=== PATIENT | female | born 1960 | race Caucasian/White ===

== ENCOUNTER 2018-09-24 20:57 | Inpatient (IN) | payer MEDICARE, MEDICAID ==
[~2018-09-24] VITALS: Ht 160 cm; Wt 89.1 kg
[~2018-09-24 20:57] MED LIST: BENA20TA4; CEPH500C; HYDR200T39 PO; LABE200T25; LEVO-86; LEVO50TA64; TRAM50TA2 PO; TRIA1CAP44
[2018-09-25] VITALS (14 sets, daily range): BP systolic 100–168; BP diastolic 65–91; PULSE 60–92; RESP 18–20; Ht 160 cm; Wt 89.1 kg
--- NOTE | 2018-09-25 00:58 | ERD ---
ER Documentation Chief Complaint Chief Complaint SOB, DIZZY. MISSED DIALYSIS TODAY, HX CHF HPI This is a very pleasant 57-year-old female coming with shortness of breath and dizziness today. Patient has a history of end-stage renal disease and CHF and is on Sunday dialysis schedule. She missed her dialysis earlie r today because she could not get to it. She denies any fevers or chills. Denies any ceci chest pain. Denies any nausea or vomiting. Denies any other current issues. ROS All systems reviewed and are negative except as per history of present illness. Medications Home Meds Reported Medications Cephalexin* (Cephalexin*) 500 Mg Capsule 01/24/10 Labetalol Hcl* (Labetalol Hcl*) 200 Mg Tablet 01/24/10 Benazepril Hcl* (Benazepril Hcl*) 20 Mg Tablet 01/24/10 Levothyroxine Sodium (Levothroid) 50 Mcg Tablet 01/24/10 Tramadol HCl (Tramadol HCl) 50 Mg Tablet 01/24/10 Hydroxychloroquine Sulfate* (Hydroxychloroquine Sulfate*) 200 Mg Tablet 01/24/10 Triamterene-HCTZ (Triamterene-HCTZ) 1 Cap Capsule 01/24/10 Levothyroxine Sodium (Levothroid) 100 Mcg Tablet 01/24/10 Allergies Allergies: Coded Allergies: Penicillins (Unverified Allergy, Intermediate, RASH , 01/30/10) Sertraline (Verified Allergy, Mild, 01/30/10) PMhx/Soc History of Surgery: Yes (ANGIOPLASTY) Anesthesia Reaction: No Hx Neurological Disorder: No Hx Respiratory Disorders: Yes (ASTHMA) Hx Cardiac Disorders: Yes (CHF, HTN) Hx Psychiatric Problems: No Hx Alcohol Use: Yes (OCCASIONAL) Hx Substance Use: No Hx Tobacco Use: Yes Smoking Status: Unknown if ever smoked Physical Exam Vitals Vital Signs Date Temp Pulse Resp B/P (MAP) Pulse Ox O2 O2 Flow FiO2 Time Delivery Rate 09/24/18 Nasal 2 23:00 Cannula 09/24/18 97.2 87 22 196/99 100 21:06 (131) Physical Exam Const: No acute distress Head: Atraumatic Eyes: Normal Conjunctiva ENT: Normal External Ears, Nose and Mouth. Neck: Full range of motion. No meningismus. Resp: Scattered rales bilaterally Cardio: Regular rate and rhythm, no murmurs Abd: Soft, non tender, non distended. Normal bowel sounds Skin: No petechiae or rashes Back: No midline or flank tenderness Ext: No cyanosis, or edema Neur: Awake and alert Psych: Normal Mood and Affect Result Diagram: 09/24/18231709/24/182317 Results 24 hrs Laboratory Tests Test 09/24/18 23:18 White Blood Count 5.0 10^3/ul Red Blood Count 3.01 10^6/ul Hemoglobin 9.6 g/dl Hematocrit 29.9 % Mean Corpuscular Volume 99.3 fl Mean Corpuscular Hemoglobin 31.9 pg Mean Corpuscular Hemoglobin Concent 32.1 g/dl Red Cell Distribution Width 15.0 % Platelet Count 212 10^3/UL Mean Platelet Volume 9.9 fl Immature Granulocytes % 0.200 % Neutrophils % 59.7 % Lymphocytes % 27.2 % Monocytes % 8.9 % Eosinophils % 3.2 % Basophils % 0.8 % Nucleated Red Blood Cells % 0.0 /100WBC Immature Granulocytes # 0.010 10^3/ul Neutrophils # 3.0 10^3/ul Lymphocytes # 1.4 10^3/ul Monocytes # 0.4 10^3/ul Eosinophils # 0.2 10^3/ul Basophils # 0.0 10^3/ul Nucleated Red Blood Cells # 0.0 10^3/ul Sodium Level 141 mmol/L Potassium Level 3.3 mmol/L Chloride Level 102 mmol/L Carbon Dioxide Level 26 mmol/L Anion Gap 13 Blood Urea Nitrogen 47 mg/dl Creatinine 2.68 mg/dl Est Glomerular Filtrat Rate mL/min 18 mL/min Glucose Level 84 mg/dl Calcium Level 8.8 mg/dl Total Bilirubin 0.2 mg/dl Direct Bilirubin 0.00 mg/dl Indirect Bilirubin 0.2 mg/dl Aspartate Amino Transf (AST/SGOT) 25 IU/L Alanine Aminotransferase (ALT/SGPT) 10 IU/L Alkaline Phosphatase 140 IU/L Troponin I 0.017 ng/ml B-Type Natriuretic Peptide 5130 PG/ML Total Protein 7.5 g/dl Albumin 4.0 g/dl Globulin 3.50 g/dl Albumin/Globulin Ratio 1.14 Procedures/MDM Emergency department course: Patient seen and the charge nurse. Placed in bed from the evaluation. Had blood work done. Was placed on continuous hospital monitor with continuous pulse oximetry. Had stat EKG. Serial exams remained stable here in the department. Diagnostic data: EKG: Rate/Rhythm: Normal rate, regular rhythm QRS, ST, T-waves: [No changes consistent w/ acute ischemia], normal intervals, upgoing T waves, normal axis Impression: [No evidence of ischemia or arrhythmia] Chest X-ray 1V Interpreted by me: Soft Tissue: No acute abnormalities Bones: No acute abnormalities Mediastinum/Cardiac Silhouette/Lungs: [No acute abnormalities] Medical decision making: Patient's heart failure symptoms is concerning for acute decompensation and will require inpatient workup and monitoring. Further w/u for ischemia, arrhythmia, PE or dissection will be deferred to the inpatient team. Accepting Care Team: Current data and ongoing care discussed. Time: 11:30 PM Primary Provider: Dr. Blackmon Consulting: Deferred to inpatient team Outstanding Data: none Departure Diagnosis: Primary Impression: Shortness of breath Condition: Serious RADHA FRIEDMAN Sep 25, 2018 00:58
[2018-09-25] MEDS ORDERED: ONDANSETRON 4 MG INJ IV PRN (02:30)
[2018-09-25] MEDS ORDERED: ACETAMINOPHEN 325 MG TAB PO PRN (02:30)
[2018-09-25] MEDS ORDERED: morphine 2 MG INJ IV PRN (02:30)
[2018-09-25] MEDS ORDERED: ESCI5TAB PO (02:46)
[2018-09-25] MEDS ORDERED: HYDR-3671 PO (02:46)
[2018-09-25] MEDS ORDERED: AMLO-147 PO (02:46)
[2018-09-25] MEDS ORDERED: ISOS20TA3 PO (02:46)
[2018-09-25] MEDS ORDERED: ALPR1TAB2 PO (02:46)
[2018-09-25] MEDS ORDERED: FURO80TA78 PO (02:46)
[2018-09-25] MEDS ORDERED: SYN2 PO (02:46)
[2018-09-25] MEDS ORDERED: DIVA-48 PO (02:46)
[2018-09-25] MEDS ORDERED: ATOR40TA68 PO (02:48)
[2018-09-25] MEDS: QUETIAPINE 100 MG TAB PO SCH ×2 (03:07→21:22)
--- NOTE | 2018-09-25 11:15 | HP ---
Date/Time of Note Date/Time of Note DATE: 09/25/18 TIME: 10:59 Assessment/Plan VTE Prophylaxis Pharmacological prophylaxis: heparin Lines/Catheters IV [facility] Type [facility]from [facility] Saline Lock Urinary Cath still in place: No Assessment/Plan Assessment/Plan -Fluid volume overload due to missed hemodialysis. Dr. Rojas is asked to see patient in nephrology consultation. -Shortness of breath in patient with history of coronary artery disease and stent placement, will rule out acute coronary syndrome, cardiac enzymes every 8 hours x3 will obtain 2D echo. Dr. Bashir is asked to see patient in cardiology consultation. -Hypertension -Hypothyroidism -Bipolar disorder -History of lupus -Homelessness, group social worker consult. Further recommendations based on clinical course. Plan of care discussed with Dr. Holm. Result Diagram: 09/25/18 0748 09/25/18 0748 Results 24hrs Laboratory Tests Test 09/24/18 23:18 09/25/18 07:46 09/25/18 07:48 White Blood Count 5.0 4.0 L Red Blood Count 3.01 L 2.91 L Hemoglobin 9.6 L 9.1 L Hematocrit 29.9 L 28.3 L Mean Corpuscular Volume 99.3 97.3 Mean Corpuscular Hemoglobin 31.9 31.3 Mean Corpuscular Hemoglobin Concent 32.1 32.2 Red Cell Distribution Width 15.0 H 15.0 H Platelet Count 212 200 Mean Platelet Volume 9.9 10.1 Immature Granulocytes % 0.200 0.200 Neutrophils % 59.7 49.2 Lymphocytes % 27.2 35.4 Monocytes % 8.9 9.7 Eosinophils % 3.2 4.5 Basophils % 0.8 1.0 Nucleated Red Blood Cells % 0.0 0.0 Immature Granulocytes # 0.010 0.010 Neutrophils # 3.0 2.0 Lymphocytes # 1.4 1.4 Monocytes # 0.4 0.4 Eosinophils # 0.2 0.2 Basophils # 0.0 0.0 Nucleated Red Blood Cells # 0.0 0.0 Sodium Level 141 142 Potassium Level 3.3 L 3.6 Chloride Level 102 104 Carbon Dioxide Level 26 27 Anion Gap 13 11 Blood Urea Nitrogen 47 H 47 H Creatinine 2.68 H 2.67 H Est Glomerular Filtrat Rate mL/min 18 L 19 L Glucose Level 84 87 Calcium Level 8.8 8.6 Total Bilirubin 0.2 Direct Bilirubin 0.00 Indirect Bilirubin 0.2 Aspartate Amino Transf (AST/SGOT) 25 Alanine Aminotransferase (ALT/SGPT) 10 L Alkaline Phosphatase 140 H Troponin I 0.017 0.016 B-Type Natriuretic Peptide 5130 H Total Protein 7.5 Albumin 4.0 Globulin 3.50 H Albumin/Globulin Ratio 1.14 Creatine Kinase 65 Creatine Kinase Index 2.1 Creatinine Kinase MB (Mass) 1.35 HPI/ROS Admit Date/Time Admit Date/Time Sep 24, 2018 at 23:55 Hx of Present Illness The patient is a 57-year-old female with extensive medical history including history of stroke, coronary artery disease status post stent placement 10 years ago, hypothyroidism, lupus, bipolar disorder and anxiety. Patient with hemodialysis dependent end-stage renal disease goes to [facility]. Patient stated that she missed her hemodialysis on Sunday. Patient presented to the emergency room with complaints of shortness of breath and dizziness. Patient denies any fevers denies chills denies chest pain denies nausea vomiting diarrhea. X-ray revealed pulmonary vascular congestion/volume overload. Patient is admitted for further evaluation and management. ROS 12 point review of system is negative except for what mentioned in HPI PMH/Family/Social Past Medical History Medical History: coronary artery disease, high cholesterol, hypertension, hypothyroid, renal disease, other (Lupus, bipolar disorder, anxiety) Medications Current Medications Acetaminophen (Tylenol Tab) 650 mg Q6H PRN PO MILD PAIN(1-3)OR ELEVATED TEMP; Start 09/25/18 at 02:30 Ondansetron HCl (Zofran Inj) 4 mg Q6H PRN IV NAUSEA AND/OR VOMITING; Start at 02:30 Morphine Sulfate (morphine) 2 mg Q4H PRN IV SEVERE PAIN LEVEL 7-10; Start 09/25/18 at 02:30 Quetiapine Fumarate (Seroquel) 100 mg HS PO Last administered on 09/25/18at 03:07; Admin Dose 100 MG; Start 09/25/18 at 02:30 Alprazolam (Xanax) 1 mg Q12 PRN PO ANXIETY; Start 09/25/18 at 09:30 Atorvastatin Calcium (Lipitor) 40 mg QHS PO ; Start 09/25/18 at 21:00 Divalproex Sodium (Depakote) 500 mg BID PO ; Start 09/25/18 at 21:00 Escitalopram Oxalate (Lexapro) 5 mg DAILY PO ; Start 09/26/18 at 09:00 Hydralazine HCl (Apresoline) 25 mg Q6 PRN PO sbp>150; Start 09/25/18 at 09:30 Labetalol HCl (Normodyne) 200 mg BID PO ; Start 09/25/18 at 21:00 Coded Allergies: Penicillins (Unverified Allergy, Intermediate, RASH , 01/30/10) Sertraline (Verified Allergy, Mild, 01/30/10) Past Surgical History Past Surgical Hx: other (Status post cardiac stent placement many years ago, status post left upper extremity AV fistula creation 2 months ago, status post right chest permacath placement) Family History Significant Family History: cancer (Mother from colon cancer, father is from complication of CHF) Social History Alcohol Use: none Smoking Status: Current every day smoker Drug Use: none Exam/Review of Systems Vital Signs Vitals Vital Signs Date Temp Pulse Resp B/P (MAP) Pulse Ox O2 O2 Flow FiO2 Time Delivery Rate 09/25/18 85 08:13 09/25/18 98.1 20 113/68 96 Room Air 07:37 (83) 09/25/18 3.0 01:38 Intake and Output 09/24/18 09/24/18 09/25/18 1515:00 23:00 07:00 IntakeIntake Total 250 ml BalanceBalance 250 ml Exam Constitutional: alert, oriented Head: normocephalic Neck: supple Respiratory: diminished breath sounds Cardiovascular: regular rate and rhythm Gastrointestinal: soft, non-tender Musculoskeletal: nl extremities to inspection Extremities: normal pulses, other (Left upper extremity AV fistula) Neurological: nl mental status, lethargic Skin: nl turgor Additional Comments Right chest permacath YELENA HARDEN Sep 25, 2018 11:10
--- NOTE | 2018-09-25 13:31 | CONS ---
Assessment/Plan Assessment/Plan Hospital Course (Demo Recall) SOB ESRD on HD CAD Psych D/O Poor medical compliance HX Meth and coccaine use -pt admits to missing last 2 HD sessions -Fluid management via HD as per renal -Serial trops neg, check echo -Given hx CAD, asa and statin tx Consultation Date/Type/Reason Admit Date/Time Sep 24, 2018 at 23:55 Type of Consult Cardiology Reason for Consultation sob Date/Time of Note DATE: 09/25/18 TIME: 13:30 Hx of Present Illness 57 y/o female hx ESRD on HD, CAD s/p PCI, HTN, psych d/o who presents with MCDUFFIE and PND. Pt admits to missing past 2 HD sessions. No cp, palp, dizziness. Denies fever,chills. Not compliant with meds 12 point ROS was performed with all pertinent pos and neg mentioned above, and all else is neg Past Medical History Medical History: coronary artery disease, hypertension, renal disease Home Meds Reported Medications Atorvastatin* (Atorvastatin*) 40 Mg Tablet, 40 MG PO QHS, #30 TAB 09/25/18 Furosemide* (Lasix*) 80 Mg Tablet, 80 MG PO DAILY, TAB 09/25/18 Alprazolam* (Xanax*) 1 Mg Tab, 1 MG PO Q12 PRN for ANXIETY, TAB 09/25/18 Amlodipine Besylate* (Amlodipine Besylate*) 10 Mg Tablet, 10 MG PO DAILY, #30 TAB 09/25/18 Levothyroxine Sodium* (Synthroid*) 200 Mcg Tablet, 260 MCG PO BEFORE BREAKFAST, #30 TAB 09/25/18 Levothyroxine Sodium* (Synthroid*) 200 Mcg Tablet, 200 MCG PO BEFORE BREAKFAST, #30 TAB 09/25/18 Hydralazine Hcl* (Hydralazine Hcl*) 25 Mg Tab, 25 MG PO TID, #120 TAB 09/25/18 Divalproex Sodium* (Depakote*) 500 Mg Tablet.dr, 500 MG PO BID, #90 TAB 09/25/18 Isosorbide Mononitrate (Isosorbide Mononitrate) 20 Mg Tablet, 60 MG PO DAILY, TAB 09/25/18 Escitalopram Oxalate* (Lexapro*) 5 Mg Tablet, 5 MG PO DAILY, #30 TAB 09/25/18 Cephalexin* (Cephalexin*) 500 Mg Capsule 82/10 Labetalol Hcl* (Labetalol Hcl*) 200 Mg Tablet 01/24/10 Benazepril Hcl* (Benazepril Hcl*) 20 Mg Tablet 01/24/10 Levothyroxine Sodium (Levothroid) 50 Mcg Tablet 01/24/10 Tramadol HCl (Tramadol HCl) 50 Mg Tablet, 50 MG PO Q6 PRN for PAIN LEVEL 6-10 01/24/10 Hydroxychloroquine Sulfate* (Hydroxychloroquine Sulfate*) 200 Mg Tablet, 200 MG PO DAILY 01/24/10 Triamterene-HCTZ (Triamterene-HCTZ) 1 Cap Capsule 01/24/10 Levothyroxine Sodium (Levothroid) 100 Mcg Tablet 01/24/10 Medications Current Medications Acetaminophen (Tylenol Tab) 650 mg Q6H PRN PO MILD PAIN(1-3)OR ELEVATED TEMP; Start 09/25/18 at 02:30 Ondansetron HCl (Zofran Inj) 4 mg Q6H PRN IV NAUSEA AND/OR VOMITING; Start 09/25/18 at 02:30 Morphine Sulfate (morphine) 2 mg Q4H PRN IV SEVERE PAIN LEVEL 7-10; Start 09/25/18 at 02:30 Quetiapine Fumarate (Seroquel) 100 mg HS PO Last administered on 09/25/18at 03:07; Admin Dose 100 MG; Start 09/25/18 at 02:30 Alprazolam (Xanax) 1 mg Q12 PRN PO ANXIETY; Start 09/25/18 at 09:30 Atorvastatin Calcium (Lipitor) 40 mg QHS PO ; Start 09/25/18 at 21:00 Divalproex Sodium (Depakote) 500 mg BID PO ; Start 09/25/18 at 21:00 Escitalopram Oxalate (Lexapro) 5 mg DAILY PO ; Start 09/26/18 at 09:00 Hydralazine HCl (Apresoline) 25 mg Q6 PRN PO sbp>150; Start 09/25/18 at 09:30 Labetalol HCl (Normodyne) 200 mg BID PO ; Start 09/25/18 at 21:00 Allergies: Coded Allergies: Penicillins (Unverified Allergy, Intermediate, RASH , 01/30/10) Sertraline (Verified Allergy, Mild, 01/30/10) Past Surgical History Past Surgical Hx: other (Status post cardiac stent placement many years ago, status post left upper extremity AV fistula creation 2 months ago, status post right chest permacath placement) Family History Significant Family History: no pertinent family hx Social History Alcohol Use: none Smoking Status: Current every day smoker Drug Use: other (hx meth and coccaine use) Exam/Review of Systems Vital Signs Vitals Vital Signs Date Temp Pulse Resp B/P (MAP) Pulse Ox O2 O2 Flow FiO2 Time Delivery Rate 09/25/18 83 12:10 09/25/18 97.7 20 151/70 96 Room Air 11:09 (97) 09/25/18 3.0 01:38 Intake and Output 09/24/18 09/24/18 09/25/18 1515:00 23:00 07:00 IntakeIntake Total 250 ml BalanceBalance 250 ml Exam Exam sleeping but arrousable, nad, no dyspnea with speaking Head: normocephalic Respiratory: other (course bs, no wheeze) Cardiovascular: regular rate and rhythm (s1s2) Gastrointestinal: soft, non-tender, bowel sounds Extremities: edema Labs Result Diagram: 09/25/18 0748 09/25/18 0748 Results 24hrs Laboratory Tests Test 09/24/18 23:18 09/25/18 07:46 09/25/18 07:48 White Blood Count 5.0 4.0 L Red Blood Count 3.01 L 2.91 L Hemoglobin 9.6 L 9.1 L Hematocrit 29.9 L 28.3 L Mean Corpuscular Volume 99.3 97.3 Mean Corpuscular Hemoglobin 31.9 31.3 Mean Corpuscular Hemoglobin Concent 32.1 32.2 Red Cell Distribution Width 15.0 H 15.0 H Platelet Count 212 200 Mean Platelet Volume 9.9 10.1 Immature Granulocytes % 0.200 0.200 Neutrophils % 59.7 49.2 Lymphocytes % 27.2 35.4 Monocytes % 8.9 9.7 Eosinophils % 3.2 4.5 Basophils % 0.8 1.0 Nucleated Red Blood Cells % 0.0 0.0 Immature Granulocytes # 0.010 0.010 Neutrophils # 3.0 2.0 Lymphocytes # 1.4 1.4 Monocytes # 0.4 0.4 Eosinophils # 0.2 0.2 Basophils # 0.0 0.0 Nucleated Red Blood Cells # 0.0 0.0 Sodium Level 141 142 Potassium Level 3.3 L 3.6 Chloride Level 102 104 Carbon Dioxide Level 26 27 Anion Gap 13 11 Blood Urea Nitrogen 47 H 47 H Creatinine 2.68 H 2.67 H Est Glomerular Filtrat Rate mL/min 18 L 19 L Glucose Level 84 87 Calcium Level 8.8 8.6 Total Bilirubin 0.2 Direct Bilirubin 0.00 Indirect Bilirubin 0.2 Aspartate Amino Transf (AST/SGOT) 25 Alanine Aminotransferase (ALT/SGPT) 10 L Alkaline Phosphatase 140 H Troponin I 0.017 0.016 B-Type Natriuretic Peptide 5130 H Total Protein 7.5 Albumin 4.0 Globulin 3.50 H Albumin/Globulin Ratio 1.14 Creatine Kinase 65 Creatine Kinase Index 2.1 Creatinine Kinase MB (Mass) 1.35 Imaging Imaging ecg sr, normal qrs, non specific st-t wave abn Medications Medications Current Medications Acetaminophen (Tylenol Tab) 650 mg Q6H PRN PO MILD PAIN(1-3)OR ELEVATED TEMP; Start 09/25/18 at 02:30 Ondansetron HCl (Zofran Inj) 4 mg Q6H PRN IV NAUSEA AND/OR VOMITING; Start 09/25/18 at 02:30 Morphine Sulfate (morphine) 2 mg Q4H PRN IV SEVERE PAIN LEVEL 7-10; Start 09/25/18 at 02:30 Quetiapine Fumarate (Seroquel) 100 mg HS PO Last administered on 09/25/18at 03:07; Admin Dose 100 MG; Start 09/25/18 at 02:30 Alprazolam (Xanax) 1 mg Q12 PRN PO ANXIETY; Start 09/25/18 at 09:30 Atorvastatin Calcium (Lipitor) 40 mg QHS PO ; Start 09/25/18 at 21:00 Divalproex Sodium (Depakote) 500 mg BID PO ; Start 09/25/18 at 21:00 Escitalopram Oxalate (Lexapro) 5 mg DAILY PO ; Start 09/26/18 at 09:00 Hydralazine HCl (Apresoline) 25 mg Q6 PRN PO sbp>150; Start 09/25/18 at 09:30 Labetalol HCl (Normodyne) 200 mg BID PO ; Start 09/25/18 at 21:00 Denny Bashir DO Sep 25, 2018 13:31
[2018-09-25] MEDS: EPOETIN ALFA-EPBX (ESRD) 10,000 UNIT/ML VIAL SC SCH (16:57)
--- NOTE | 2018-09-25 19:57 | CONS ---
DATE OF ADMISSION: 09/24/2018 DATE OF CONSULTATION: 09/25/2018 TYPE OF CONSULTATION: Nephrology. REASON FOR CONSULTATION: End-stage renal disease. PHYSICIAN REQUESTING CONSULT: Dr. Holm. HISTORY OF PRESENT ILLNESS: This is a 57-year-old female with a past medical history of end-stage re nal disease on dialysis Sunday, Sunday and Sunday. The patient dialyzes at [facility]. The pa harmeetjulieth does not know the name of her upper leather sorter. The patient also has a history of stroke, history of coronary artery disease, history of lupus, history of bipolar disorder, anxiety, hypothyroidism wh o presents to [facility] emergency room due to missing hemodialysis. The patient states johnson t she has been having shortness of breath and dizziness. She states that her last hemodialysis was F riday. Since her last dialysis patient noted to have increased lethargy. She also states that she i s homeless. Upon arrival to the emergency room, the patient's chest x-ray showed evidence of vascula r congestion, volume overload. The patient was admitted to telemetry for evaluation. In terms of patient's renal history, as stated above, she is on dialysis due to end-stage renal disea se. Last hemodialysis was Sunday. The patient's access is Perm-A-Cath. Denies any hemoptysis, mariola temesis or hematochezia. PAST MEDICAL HISTORY: History of coronary artery disease, dyslipidemia, hypertension, hypothyroidism , end-stage renal disease and lupus. PAST SURGICAL HISTORY: Status post PCI, status post left upper extremity AV fistula placement, statu s post a right chest Perm-A-cath placement. FAMILY HISTORY: No family history of kidney disease. SOCIAL HISTORY: Positive tobacco use. MEDICATIONS: The patient medications have been reviewed. REVIEW OF SYSTEMS: A 14-point review of systems conducted. Pertinent positives stated in HPI, other hong negative. PHYSICAL EXAMINATION: VITAL SIGNS: Blood pressure is 151/70, respirations 20, pulse 77, temperature 97.7. HEENT: Head is normocephalic. NECK: Supple. HEART: Regular rate. LUNGS: Show diminished breath sounds at the base. ABDOMEN: Soft, nontender to palpation without rebound or guarding. EXTREMITIES: Negative for clubbing, cyanosis. Trace edema. DERMATOLOGIC: Patient has noted telangiectasias on her face. NEUROLOGIC: No focal deficits. LABORATORY DATA: Shows sodium 142, potassium 3.6, BUN 47, creatinine 2.67. White count 4.1, hemoglo bin 9.1, platelet count 200. The patient's chest x-ray was reviewed, showed evidence of pulmonary va scular congestion, volume overload. ASSESSMENT AND PLAN: This is a 57-year-old female who presents with: 1. End-stage renal disease. The patient's access is Perm-A-Cath. Plan is for hemodialysis today. Will dialyze for 3 hours 4k bath, calcium 2.5, ultrafiltrate as tolerated. 2. Volume overload. Anticipate ultrafiltration with hemodialysis approximately 1 to 2 liters. 3. Anemia. Monitor hemoglobin and hematocrit levels. We will give Epogen. 4. Mineral bone disorder. Monitor calcium and phosphatase levels. We will give phosphate binders a s needed. 5. Hypertension in part due to increased intravascular volume. Continue current blood pressure floyd men. Continue ultrafiltration dialysis. 6. History of coronary artery disease. Continue medical management. Follow up with Cardiology. 7. History of lupus. Continue to monitor. 8. History of bipolar disorder. 9. Hypothyroidism. Continue medical management. Thank you, Dr. Holm, for this interesting consult. It will be a pleasure to follow patient with you throughout the hospital course. Dictated By: ELIZABETH RODRIGES DO NR/NTS Conf#: [id number] DID#: [id number] CC: DANAY HOLM MD;*EndCC*
[2018-09-25] MEDS: LABETALOL 200 MG TAB PO SCH (21:00)
[2018-09-25] MEDS: DIVALPROEX (EC) 500 MG TAB PO SCH (21:22)
[2018-09-25] MEDS: ATORVASTATIN 40 MG TAB PO SCH (21:22)
[2018-09-26] VITALS (21 sets, daily range): BP systolic 82–137; BP diastolic 6–75; PULSE 73–89; RESP 18–22
[2018-09-26] MEDS: HEPARIN 1000 UNITS/ML 10 ML INJ CATHETER SCH (03:05)
[2018-09-26] MEDS: ASPIRIN 81 MG TAB PO SCH (08:09)
[2018-09-26] MEDS: DIVALPROEX (EC) 500 MG TAB PO SCH ×2 (08:09→20:28)
[2018-09-26] MEDS: ESCITALOPRAM 10 MG TAB PO SCH (08:09)
[2018-09-26] MEDS: LABETALOL 200 MG TAB PO SCH ×2 (08:11→20:29)
--- NOTE | 2018-09-26 08:56 | PN ---
DATE: 09/26/2018 SUBJECTIVE: The patient had hemodialysis yesterday, tolerated well. No other events noted. OBJECTIVE: VITAL SIGNS: Blood pressure is 128/75, pulse 77, temperature 97.8. HEENT: Head is normocephalic. NECK: Supple. HEART: Regular rate. LUNGS: Show diminished breath sounds at the base. ABDOMEN: Soft, nontender to palpation without rebound or guarding. EXTREMITIES: Negative for clubbing, cyanosis, no edema. DERMATOLOGIC: No rashes. MUSCULOSKELETAL: No joint effusions. NEUROLOGIC: No change in exam. MEDICATIONS: Reviewed. LABORATORY DATA: Reviewed. ASSESSMENT AND PLAN: 1. End-stage renal disease. The patient had hemodialysis yesterday, tolerated it well. Plan for di alysis again tomorrow. 2. Volume overload, improving. Continue ultrafiltration dialysis. 3. Anemia. Monitor hemoglobin and hematocrit levels. Will give Epogen as needed. 4. Mineral bone disorder, monitor calcium and phosphorus level. We will give phosphate binders as n eeded. 5. Hypertension. Continue current blood pressure regimen. 6. History of coronary artery disease. Continue medical management. Follow up with cardiology. 7. History of lupus, currently quiescent. Continue to monitor. 8. History of bipolar disorder. 9. Hypothyroidism. Continue current treatment plan. Dictated By: ELIZABETH RODRIGES DO NR/NTS Conf#: [id number] DID#: [id number] CC: DANAY SOLER MD;*EndCC*
--- NOTE | 2018-09-26 14:18 | PN ---
Date/Time of Note Date/Time of Note DATE: 09/26/18 TIME: 14:14 Assessment/Plan VTE Prophylaxis Risk score (from Nsg)>0 risk: 4 SCD applied (from Nsg): Yes Pharmacological prophylaxis: heparin Lines/Catheters IV Catheter Type (from Nrsg): PERMACATH Urinary Cath still in place: No Assessment/Plan Hospital Course Patient status post hemodialysis yesterday, does not appear to be in any di stress at rest, however complains of chest pain. Assessment/Plan -Fluid volume overload due to missed hemodialysis. Dr. Rojas is following in nephrology consultation. -Shortness of breath in patient with history of coronary artery disease and stent placement, rule out acute coronary syndrome, cardiac enzymes are negative x3. will obtain 2D echo. Dr. Bashir is asked to see patient in cardiology consultation. -Hypertension -Hypothyroidism -Bipolar disorder -History of lupus -Homelessness, discussed with social studies department chair and case management, plan for [facility] facility placement. Further recommendations based on clinical course. Plan of care discussed with Dr. Holm. Result Diagram: 09/25/18 0748 09/26/18 0718 Results 24hrs Laboratory Tests Test 09/25/18 15:25 09/26/18 07:18 Creatine Kinase 57 Creatine Kinase Index 1.8 Creatinine Kinase MB (Mass) 1.05 Troponin I < 0.012 Sodium Level 141 Potassium Level 4.0 Chloride Level 106 Carbon Dioxide Level 28 Anion Gap 7 Blood Urea Nitrogen 27 #H Creatinine 1.93 H Est Glomerular Filtrat Rate mL/min 27 L Glucose Level 92 Calcium Level 9.0 Total Bilirubin 0.3 Direct Bilirubin 0.00 Indirect Bilirubin 0.3 Aspartate Amino Transf (AST/SGOT) 18 Alanine Aminotransferase (ALT/SGPT) 10 L Alkaline Phosphatase 133 H Total Protein 6.6 Albumin 3.4 Globulin 3.20 Albumin/Globulin Ratio 1.06 Thyroid Stimulating Hormone (TSH) 0.320 L Exam/Review of Systems Exam Vitals Vital Signs Date Temp Pulse Resp B/P (MAP) Pulse Ox O2 O2 Flow FiO2 Time Delivery Rate 09/26/18 75 12:55 09/26/18 98.0 22 112/57 96 Room Air 12:10 (75) 09/25/18 3.0 01:38 Intake and Output 09/25/18 09/25/18 09/26/18 1515:00 23:00 07:00 IntakeIntake Total 720 ml 400 ml OutputOutput Total 1700 ml BalanceBalance 720 ml -1300 ml Exam Constitutional: alert, oriented Respiratory: diminished breath sounds Cardiovascular: regular rate and rhythm Gastrointestinal: soft, non-tender Musculoskeletal: nl extremities to inspection Extremities: normal pulses, other (Left upper extremity AV fistula) Neurological: nl mental status, lethargic Additional Comments Right chest permacath Results Results 24hrs Laboratory Tests Test 09/25/18 15:25 09/26/18 07:18 Creatine Kinase 57 Creatine Kinase Index 1.8 Creatinine Kinase MB (Mass) 1.05 Troponin I < 0.012 Sodium Level 141 Potassium Level 4.0 Chloride Level 106 Carbon Dioxide Level 28 Anion Gap 7 Blood Urea Nitrogen 27 #H Creatinine 1.93 H Est Glomerular Filtrat Rate mL/min 27 L Glucose Level 92 Calcium Level 9.0 Total Bilirubin 0.3 Direct Bilirubin 0.00 Indirect Bilirubin 0.3 Aspartate Amino Transf (AST/SGOT) 18 Alanine Aminotransferase (ALT/SGPT) 10 L Alkaline Phosphatase 133 H Total Protein 6.6 Albumin 3.4 Globulin 3.20 Albumin/Globulin Ratio 1.06 Thyroid Stimulating Hormone (TSH) 0.320 L Medications Medication Current Medications Acetaminophen (Tylenol Tab) 650 mg Q6H PRN PO MILD PAIN(1-3)OR ELEVATED TEMP; Start 09/25/18 at 02:30 Ondansetron HCl (Zofran Inj) 4 mg Q6H PRN IV NAUSEA AND/OR VOMITING; Start 09/25/18 at 02:30 Morphine Sulfate (morphine) 2 mg Q4H PRN IV SEVERE PAIN LEVEL 7-10; Start 09/25 at 02:30 Quetiapine Fumarate (Seroquel) 100 mg HS PO Last administered on 09/25/18at 21:22; Admin Dose 100 MG; Start 09/25/18 at 02:30 Alprazolam (Xanax) 1 mg Q12 PRN PO ANXIETY; Start 09/25/18 at 09:30 Atorvastatin Calcium (Lipitor) 40 mg QHS PO Last administered on 09/25/18at 21:22; Admin Dose 40 MG; Start 09/25/18 at 21:00 Divalproex Sodium (Depakote) 500 mg BID PO Last administered on 09/26/18at 08:09; Admin Dose 500 MG; Start 09/25/18 at 21:00 Escitalopram Oxalate (Lexapro) 5 mg DAILY PO Last administered on 09/26/18 08:09; Admin Dose 5 MG; Start 09/26/18 at 09:00 Hydralazine HCl (Apresoline) 25 mg Q6 PRN PO sbp>150; Start 09/25/18 at 09:30 Labetalol HCl (Normodyne) 200 mg BID PO Last administered on 09/26/18at 08:11; Admin Dose 200 MG; Start 09/25/18 at 21:00 Epoetin Rickey-epbx (RETACRIT(esrd)) 10,000 unit MoWeFr@1700 SC Last administered on 09/25/18 16:57; Admin Dose 10,000 UNIT; Start 09/25/18 at 17:00 Aspirin (Aspirin) 81 mg DAILY PO Last administered on 09/26/18at 08:09; Admin Dose 81 MG; Start 09/26/18 at 09:00 Heparin Sodium (Porcine) (Heparin (1000 Units/ml)) 3,500 unit AFTER DIALYSIS CATHETER Last administered on 09/26/18at 03:05; Admin Dose 3,500 UNIT; Start 09/26/18 at 00:00 Levothyroxine Sodium (Synthroid) 250 mcg DAILY@06 PO ; Start 09/27/18 at 06:00 YELENA HARDEN Sep 26, 2018 14:18
--- NOTE | 2018-09-26 16:24 | RADRPT ---
Echocardiogram Report Patient Name: Isabelle BRADSHAWnt ID: [id number] : 1960 (57y 10m)Study Date: 09/25/2018 2:25:44 PM Gender: FAccession #: [id number] Tech: Kaitlynn [facility] Location: [facility] Ref.Physician: YELENA HARDEN Height(Cm): BSA: Weight(Kg): Quality: AdequateAccount #: Procedures: Echocardiographic Report: Transthoracic echocardiogram with complete 2D, M-Mode, and doppler examination. Indications: Evaluate Left Ventricular function. Measurements: 2D/M Mode Doppler Measurement Value Normal Range Measurement Value Normal Range LVIDd 2D 4.2 [ 3.8 - 5.2 ] cm AV Peak Andreas 1.7 [ 100.0 - 170.0 ] cm/sec LVIDs 2D 2.5 [ 2.2 - 3.5 ] cm AV Peak PG 12.0 [ 2.0 - 9.0 ] mmHg LVPWd 2D 1.8 [ 0.6 - 0.9 ] cm LVOT Peak Andreas 1.1 [ 70.0 - 110.0 ] cm/sec IVSd 2D 1.8 [ 0.6 - 0.9 ] cm LVOT Peak PG 5.0 [ 2.0 - 6.0 ] mmHg AoR Diam 2D 2.6 [ 2.3 - 3.1 ] cm MV E Peak Andreas 0.8 [ 60.0 - 130.0 ] cm/sec EDV 2D 78.6 [ 46.0 - 106.0 ] ml MV A Peak Andreas 0.8 [ 100.0 - 120.0 ] cm/sec ESV 2D 22.8 [ 14.0 - 42.0 ] ml MV E/A 0.9 [ 0.8 - 1.5 ] ratio EF 2D 71.0 [ 54.0 - 74.0 ] percent MV Decel Time 165 [ 104 - 258 ] msec LA Dimen 2D 4.2 [ 2.7 - 3.8 ] cm Lat E` Andreas 0.1 [ 10.0 - 15.0 ] cm/sec Lateral E/E` 9.9 [ 1.0 - 2.0 ] ratio MV E/A 0.9 [ 0.8 - 1.5 ] ratio TR Peak Andreas 3.0 [ 100.0 - 280.0 ] cm/sec TR Peak PG 37.0 mmHg RVSP 40.0 [ 10.0 - 36.0 ] mmHg Findings: Left Ventricle: Normal left ventricular systolic function. Normal left ventricular cavity size. Severe concentric left ventricular hypertrophy. Ejection fraction is visually estimated at 55 %. Tissue Doppler/Mitral Doppler indices are consistent with impaired relaxation (Stage I diastolic dysfunction). Right Ventricle: Normal right ventricular size. Normal right ventricular systolic function. Left Atrium: There is mild enlargement of left atrium. Right Atrium: The right atrium is normal in size. Mitral Valve: Mild mitral leaflet calcification. Mild mitral annular calcification. Trace mitral regurgitation. Aortic Valve: No hemodynamically significant aortic stenosis by doppler. Aortic cusps appear mildly calcified. Tricuspid Valve: Normal appearance of the tricuspid valve. Estimated peak PA systolic pressure 40 mmHg. There is mild tricuspid regurgitation. Pulmonic Valve: Normal pulmonic valve appearance. There is trace pulmonic regurgitation. Pericardium: Normal pericardium with no significant pericardial effusion. Aorta: Normal aortic root. IVC: Normal size and normal respiratory collapse consistent with normal right atrial pressure. Conclusions: Normal left ventricular systolic function. Normal left ventricular cavity size. Severe concentric left ventricular hypertrophy. Ejection fraction is visually estimated at 55 %. Tissue Doppler/Mitral Doppler indices are consistent with impaired relaxation (Stage I diastolic dysfunction). Normal right ventricular size. Normal right ventricular systolic function. There is mild enlargement of left atrium. The right atrium is normal in size. Estimated peak PA systolic pressure 40 mmHg. There is mild tricuspid regurgitation. No significant valvular stenosis or regurgitation seen of remaining visualized valves. Normal pericardium with no significant pericardial effusion. Electronically Signed By: Denny Bashir 2018-09-26 16:23:49 PDT
--- NOTE | 2018-09-26 16:33 | CONS ---
Assessment/Plan Assessment/Plan Hospital Course (Demo Recall) SOB-resolved Preserved left ventricular ejection fraction ESRD on HD-intermittent compliance CAD Psych D/O Poor medical compliance History of meth and cocaine use -Patient admits to missing last 2 HD sessions -Shortness of breath is better after hemodialysis -Fluid management via HD as per renal -Continue aspirin and statin therapy if no contraindication, add beta-la given history of CAD Consultation Date/Type/Reason Admit Date/Time Sep 24, 2018 at 23:55 Initial Consult Date Type of Consult Cardiology Date/Time of Note DATE: 09/26/18 TIME: 16:31 24 HR Interval Summary Free Text/Dictation Shortness of breath is better after hemodialysis. Denies chest pain, palpitations Exam/Review of Systems Vital Signs Vitals Vital Signs Date Temp Pulse Resp B/P (MAP) Pulse Ox O2 O2 Flow FiO2 Time Delivery Rate 09/26/18 98.4 77 22 132/66 96 Room Air 16:18 (88) 09/25/18 3.0 01:38 Intake and Output 09/25/18 09/25/18 09/26/18 1515:00 23:00 07:00 IntakeIntake Total 720 ml 400 ml OutputOutput Total 1700 ml BalanceBalance 720 ml -1300 ml Exam Constitutional: alert, oriented (Sitting in chair, no apparent distress) Head: normocephalic Respiratory: other (Coarse breath sounds bilaterally, no wheezing) Cardiovascular: regular rate and rhythm (S1-S2 heard) Gastrointestinal: soft, non-tender, bowel sounds Extremities: edema (Trace) Labs Result Diagram: 09/25/18 0748 09/26/18 0718 Results 24hrs Laboratory Tests Test 09/26/18 07:18 Sodium Level 141 Potassium Level 4.0 Chloride Level 106 Carbon Dioxide Level 28 Anion Gap 7 Blood Urea Nitrogen 27 #H Creatinine 1.93 H Est Glomerular Filtrat Rate mL/min 27 L Glucose Level 92 Calcium Level 9.0 Total Bilirubin 0.3 Direct Bilirubin 0.00 Indirect Bilirubin 0.3 Aspartate Amino Transf (AST/SGOT) 18 Alanine Aminotransferase (ALT/SGPT) 10 L Alkaline Phosphatase 133 H Total Protein 6.6 Albumin 3.4 Globulin 3.20 Albumin/Globulin Ratio 1.06 Thyroid Stimulating Hormone (TSH) 0.320 L Medications Medications Current Medications Acetaminophen (Tylenol Tab) 650 mg Q6H PRN PO MILD PAIN(1-3)OR ELEVATED TEMP; Start 09/25/18 at 02:30 Ondansetron HCl (Zofran Inj) 4 mg Q6H PRN IV NAUSEA AND/OR VOMITING; Start 09/25/18 at 02:30 Morphine Sulfate (morphine) 2 mg Q4H PRN IV SEVERE PAIN LEVEL 7-10; Start 09/25/18 at 02:30 Quetiapine Fumarate (Seroquel) 100 mg HS PO Last administered on 09/25/18 21:22; Admin Dose 100 MG; Start 09/25/18 at 02:30 Alprazolam (Xanax) 1 mg Q12 PRN PO ANXIETY; Start 09/25/18 at 09:30 Atorvastatin Calcium (Lipitor) 40 mg QHS PO Last administered on 09/25/18 21:22; Admin Dose 40 MG; Start 09/25/18 at 21:00 Divalproex Sodium (Depakote) 500 mg BID PO Last administered on 09/26/18 08:09; Admin Dose 500 MG; Start 09/25/18 at 21:00 Escitalopram Oxalate (Lexapro) 5 mg DAILY PO Last administered on 09/26/18 08:09; Admin Dose 5 MG; Start 09/26/18 at 09:00 Hydralazine HCl (Apresoline) 25 mg Q6 PRN PO sbp>150; Start 09/25/18 at 09:30 Labetalol HCl (Normodyne) 200 mg BID PO Last administered on 09/26/18 08:11; Admin Dose 200 MG; Start 09/25/18 at 21:00 Epoetin Rickey-epbx (RETACRIT(esrd)) 10,000 unit MoWeFr@1700 SC Last administered on 09/25/18 16:57; Admin Dose 10,000 UNIT; Start 09/25/18 at 17:00 Aspirin (Aspirin) 81 mg DAILY PO Last administered on 09/26/18 08:09; Admin Dose 81 MG; Start 09/26/18 at 09:00 Heparin Sodium (Porcine) (Heparin (1000 Units/ml)) 3,500 unit AFTER DIALYSIS CATHETER Last administered on 09/26/18 03:05; Admin Dose 3,500 UNIT; Start 09/26/18 at 00:00 Levothyroxine Sodium (Synthroid) 250 mcg DAILY@06 PO ; Start 09/27/18 at 06:00 Denny Bashir DO Sep 26, 2018 16:33
[2018-09-26] MEDS: QUETIAPINE 100 MG TAB PO SCH (20:28)
[2018-09-26] MEDS: ATORVASTATIN 40 MG TAB PO SCH (20:31)
[2018-09-27] VITALS (24 sets, daily range): BP systolic 90–143; BP diastolic 57–109; PULSE 68–78; RESP 17–22
[2018-09-27] MEDS: LEVOTHYROXINE 125 MCG TAB PO SCH (05:08)
[2018-09-27] MEDS ORDERED: LEVOTHYROXINE 150 MCG TAB PO SCH (06:00)
--- NOTE | 2018-09-27 09:08 | PN ---
DATE: 09/27/2018 SUBJECTIVE: The patient is stable, no events overnight. No fevers, chills, nausea, vomiting. Patie nt is still has good urinary output. No other events noted. OBJECTIVE: VITAL SIGNS: Blood pressure is 109/58, respirations 17, pulse 70, temperature 98.0. HEENT: Head is normocephalic. NECK: Supple. HEART: Regular rate. LUNGS: Show diminished breath sounds at the base. ABDOMEN: Soft, nontender to palpation without rebound or guarding. EXTREMITIES: Negative for clubbing, cyanosis, no edema. DERMATOLOGIC: No rashes. MUSCULOSKELETAL: No joint effusion. NEUROLOGIC: No change in exam. MEDICATIONS: Reviewed. LABORATORY DATA: Has been reviewed. ASSESSMENT AND PLAN: 1. End-stage renal disease. The patient is scheduled for dialysis today. However, the patient does have excellent urinary output. Will reevaluate renal function on Sunday. If patient's renal functi on should stabilize at current creatinine, the patient may no longer need dialysis. Will monitor lyssa sely. 2. Volume overload, improving. Continue ultrafiltration dialysis. 3. Anemia. Monitor hemoglobin and hematocrit levels. Will give Epogen as needed. 4. Mineral bone disorder. Continue to monitor calcium and phosphorus levels. Will give phosphate b inders as needed. 5. Hypertension. Continue current blood pressure regimen. 6. History of chronic ischemic monitor. Follow up with cardiology. 7. History of lupus, currently quiescent. Continue to monitor. 8. History of bipolar disorder. 9. Hypothyroidism. Continue current medical management. Dictated By: ELIZABETH RODRIGES DO NR/NTS Conf#: [id number] DID#: [id number] CC: DANAY SOLER MD;*EndCC*
[2018-09-27] MEDS: HEPARIN 1000 UNITS/ML 10 ML INJ CATHETER SCH (10:50)
[2018-09-27] MEDS: DIVALPROEX (EC) 500 MG TAB PO SCH ×2 (11:14→20:50)
[2018-09-27] MEDS: ESCITALOPRAM 10 MG TAB PO SCH (11:14)
[2018-09-27] MEDS: LABETALOL 200 MG TAB PO SCH ×2 (11:15→20:54)
[2018-09-27] MEDS: ASPIRIN 81 MG TAB PO SCH (11:16)
--- NOTE | 2018-09-27 12:22 | CONS ---
Assessment/Plan Assessment/Plan Hospital Course (Demo Recall) SOB-resolved Preserved left ventricular ejection fraction ESRD on HD-intermittent compliance CAD Psych D/O Poor medical compliance History of meth and cocaine use -Patient admits poor compliance with hemodialysis -Shortness of breath is better after hemodialysis -Fluid management via HD as per renal -Continue aspirin and statin therapy, will add beta-la given history of coronary artery disease Consultation Date/Type/Reason Admit Date/Time Sep 24, 2018 at 23:55 Initial Consult Date Type of Consult Cardiology Date/Time of Note DATE: 09/27/18 TIME: 12:20 24 HR Interval Summary Free Text/Dictation No chest pain, palpitations Exam/Review of Systems Vital Signs Vitals Vital Signs Date Temp Pulse Resp B/P (MAP) Pulse Ox O2 O2 Flow FiO2 Time Delivery Rate 09/27/18 72 12:12 09/27/18 98.0 22 121/57 96 Room Air 12:03 (78) 09/25/18 3.0 01:38 Intake and Output 09/26/18 09/26/18 09/27/18 1515:00 23:00 07:00 IntakeIntake Total 980 ml 700 ml BalanceBalance 980 ml 700 ml Exam Constitutional: alert, oriented (No dyspnea with speaking, lying down flat and appears comfortable) Head: normocephalic Respiratory: other (Coarse breath sounds bilaterally, no wheezing) Cardiovascular: regular rate and rhythm (S1-S2 heard) Gastrointestinal: soft, non-tender, bowel sounds Extremities: edema (Trace) Labs Result Diagram: 09/25/18 0748 09/27/18 0601 Results 24hrs Laboratory Tests Test 09/27/18 04:30 09/27/18 06:01 Urine Opiates Screen Negative Urine Barbiturates Negative Urine Amphetamines Screen Negative Urine Benzodiazepines Screen Positive Urine Cocaine Screen Negative Urine Cannabinoids Negative Sodium Level 140 Potassium Level 3.8 Chloride Level 106 Carbon Dioxide Level 26 Anion Gap 8 Blood Urea Nitrogen 40 #H Creatinine 2.58 H Est Glomerular Filtrat Rate mL/min 19 L Glucose Level 105 Calcium Level 8.8 Thyroid Stimulating Hormone (TSH) 0.287 L Medications Medications Current Medications Acetaminophen (Tylenol Tab) 650 mg Q6H PRN PO MILD PAIN(1-3)OR ELEVATED TEMP; Start 09/25/18 at 02:30 Ondansetron HCl (Zofran Inj) 4 mg Q6H PRN IV NAUSEA AND/OR VOMITING; Start 09/25/18 at 02:30 Morphine Sulfate (morphine) 2 mg Q4H PRN IV SEVERE PAIN LEVEL 7-10; Start 09/25/18 at 02:30 Quetiapine Fumarate (Seroquel) 100 mg HS PO Last administered on 09/26/18 20:28; Admin Dose 100 MG; Start 09/25/18 at 02:30 Alprazolam (Xanax) 1 mg Q12 PRN PO ANXIETY; Start 09/25/18 at 09:30 Atorvastatin Calcium (Lipitor) 40 mg QHS PO Last administered on 09/26/18 20:31; Admin Dose 40 MG; Start 09/25/18 at 21:00 Divalproex Sodium (Depakote) 500 mg BID PO Last administered on 09/27/18 11:14; Admin Dose 500 MG; Start 09/25/18 at 21:00 Escitalopram Oxalate (Lexapro) 5 mg DAILY PO Last administered on 09/27/18 11:14; Admin Dose 5 MG; Start 09/26/18 at 09:00 Hydralazine HCl (Apresoline) 25 mg Q6 PRN PO sbp>150; Start 09/25/18 at 09:30 Labetalol HCl (Normodyne) 200 mg BID PO Last administered on 09/27/18 11:15; Admin Dose 200 MG; Start 09/25/18 at 21:00 Epoetin Rickey-epbx (RETACRIT(esrd)) 10,000 unit MoWeFr@1700 SC Last administered on 09/25/18 16:57; Admin Dose 10,000 UNIT; Start 09/25/18 at 17:00 Aspirin (Aspirin) 81 mg DAILY PO Last administered on 09/27/18 11:16; Admin Dose 81 MG; Start 09/26/18 at 09:00 Heparin Sodium (Porcine) (Heparin (1000 Units/ml)) 3,500 unit AFTER DIALYSIS CATHETER Last administered on 09/27/18 10:50; Admin Dose 3,500 UNIT; Start 09/26/18 at 00:00 Levothyroxine Sodium (Synthroid) 250 mcg DAILY@06 PO Last administered on 09/27/18 05:08; Admin Dose 250 MCG; Start 4/5/19 at 06:00 Denny Bashir DO Sep 27, 2018 12:22
--- NOTE | 2018-09-27 14:02 | PN ---
Date/Time of Note Date/Time of Note DATE: 09/27/18 TIME: 14:00 Assessment/Plan VTE Prophylaxis Risk score (from Nsg)>0 risk: 6 SCD applied (from Nsg): Yes SCD contraindicated: other Pharmacological prophylaxis: other Lines/Catheters IV Catheter Type (from Nrsg): permacath Central line still needed: Yes Urinary Cath still in place: No Assessment/Plan Assessment/Plan - Anxiety - On Xanax; feels better than yesterday -Fluid volume overload due to missed hemodialysis. - Dr. Rojas is following in nephrology consultation. -Shortness of breath in patient with history of coronary artery disease and stent placement, ruled out acute coronary syndrome, cardiac enzymes are negative x3. will obtain 2D echo. - Dr. Bashir is asked to see patient in cardiology consultation. - Anemia - monitor CBC -Hypertension -Hypothyroidism -Bipolar disorder -History of lupus -Homelessness, discussed with social work msw and case management, plan for nursing home facility placement. Further recommendations based on clinical course. Plan of care discussed with Dr. Holm. Result Diagram: 09/25/18 0748 09/27/18 0601 Results 24hrs Laboratory Tests Test 09/27/18 04:30 09/27/18 06:01 Urine Opiates Screen Negative Urine Barbiturates Negative Urine Amphetamines Screen Negative Urine Benzodiazepines Screen Positive Urine Cocaine Screen Negative Urine Cannabinoids Negative Sodium Level 140 Potassium Level 3.8 Chloride Level 106 Carbon Dioxide Level 26 Anion Gap 8 Blood Urea Nitrogen 40 #H Creatinine 2.58 H Est Glomerular Filtrat Rate mL/min 19 L Glucose Level 105 Calcium Level 8.8 Thyroid Stimulating Hormone (TSH) 0.287 L Subjective 24 Hr Interval Summary Free Text/Dictation HD today. c/o SOB; o2 sat- 96% on RA Eyes: no complaints ENT: no complaints Respiratory: shortness of breath Cardiovascular: no complaints Gastrointestinal: no complaints Genitourinary: no complaints Musculoskeletal: no complaints Skin: no complaints Neurologic: no complaints Endocrine: no complaints Exam/Review of Systems Exam Vitals Vital Signs Date Temp Pulse Resp B/P (MAP) Pulse Ox O2 O2 Flow FiO2 Time Delivery Rate 09/27/18 72 12:12 09/27/18 98.0 22 121/57 96 Room Air 12:03 (78) 09/25/18 3.0 01:38 Intake and Output 09/26/18 09/26/18 09/27/18 1515:00 23:00 07:00 IntakeIntake Total 980 ml 700 ml BalanceBalance 980 ml 700 ml Constitutional: alert, well developed Psych: nl mood/affect Head: normocephalic Eyes: EOMI, nl lids, nl sclera ENMT: nl external ears & nose Neck: non-tender Respiratory: diminished breath sounds (at bases bilaterally) Cardiovascular: nl pulses, other (s1s2) Gastrointestinal: soft, non-tender Musculoskeletal: muscle weakness Extremities: normal pulses Neurological: nl speech, other (alert/reponsive) Lymph: nontender Results Results 24hrs Laboratory Tests Test 09/27/18 04:30 09/27/18 06:01 Urine Opiates Screen Negative Urine Barbiturates Negative Urine Amphetamines Screen Negative Urine Benzodiazepines Screen Positive Urine Cocaine Screen Negative Urine Cannabinoids Negative Sodium Level 140 Potassium Level 3.8 Chloride Level 106 Carbon Dioxide Level 26 Anion Gap 8 Blood Urea Nitrogen 40 #H Creatinine 2.58 H Est Glomerular Filtrat Rate mL/min 19 L Glucose Level 105 Calcium Level 8.8 Thyroid Stimulating Hormone (TSH) 0.287 L Medications Medication Current Medications Acetaminophen (Tylenol Tab) 650 mg Q6H PRN PO MILD PAIN(1-3)OR ELEVATED TEMP; Start 09/25/18 at 02:30 Ondansetron HCl (Zofran Inj) 4 mg Q6H PRN IV NAUSEA AND/OR VOMITING; Start 09/25/18 at 02:30 Morphine Sulfate (morphine) 2 mg Q4H PRN IV SEVERE PAIN LEVEL 7-10; Start 09/25/18 at 02:30 Quetiapine Fumarate (Seroquel) 100 mg HS PO Last administered on 09/26/18at 20:28; Admin Dose 100 MG; Start 09/25/18 at 02:30 Alprazolam (Xanax) 1 mg Q12 PRN PO ANXIETY; Start 09/25/18 at 09:30 Atorvastatin Calcium (Lipitor) 40 mg QHS PO Last administered on 09/26/18at 20 :31; Admin Dose 40 MG; Start 09/25/18 at 21:00 Divalproex Sodium (Depakote) 500 mg BID PO Last administered on 09/27/18at 11:14; Admin Dose 500 MG; Start 09/25/18 at 21:00 Escitalopram Oxalate (Lexapro) 5 mg DAILY PO Last administered on 09/27/18 11:14; Admin Dose 5 MG; Start 09/26/18 at 09:00 Hydralazine HCl (Apresoline) 25 mg Q6 PRN PO sbp>150; Start 09/25/18 at 09:30 Labetalol HCl (Normodyne) 200 mg BID PO Last administered on 09/27/18at 11:15; Admin Dose 200 MG; Start 09/25/18 at 21:00 Epoetin Rickey-epbx (RETACRIT(esrd)) 10,000 unit MoWeFr@1700 SC Last administered on 09/25/18 16:57; Admin Dose 10,000 UNIT; Start 09/25/18 at 17:00 Aspirin (Aspirin) 81 mg DAILY PO Last administered on 09/27/18 11:16; Admin Dose 81 MG; Start 09/26/18 at 09:00 Heparin Sodium (Porcine) (Heparin (1000 Units/ml)) 3,500 unit AFTER DIALYSIS CATHETER Last administered on 09/27/18at 10:50; Admin Dose 3,500 UNIT; Start 09/26/18 at 00:00 Levothyroxine Sodium (Synthroid) 250 mcg DAILY@06 PO Last administered on 9at 05:08; Admin Dose 250 MCG; Start 09/27/18 at 06:00 GURU NGUYỄN Sep 27, 2018 14:02
[2018-09-27] MEDS: EPOETIN ALFA-EPBX (ESRD) 10,000 UNIT/ML VIAL SC SCH (17:08)
[2018-09-27] MEDS ORDERED: morphine LIQ (10 MG/5 ML) CUP PO PRN (17:30)
[2018-09-27] MEDS: ATORVASTATIN 40 MG TAB PO SCH (20:50)
[2018-09-27] MEDS: QUETIAPINE 100 MG TAB PO SCH (20:55)
[2018-09-27] MEDS: ALPRAZOLAM 1 MG TAB PO PRN (21:05)
[2018-09-28] VITALS (11 sets, daily range): BP systolic 101–115; BP diastolic 56–60; PULSE 65–77; RESP 18–19
[2018-09-28] MEDS: LEVOTHYROXINE 125 MCG TAB PO SCH (06:17)
[2018-09-28] MEDS: LABETALOL 200 MG TAB PO SCH ×2 (08:09→21:00)
[2018-09-28] MEDS: DIVALPROEX (EC) 500 MG TAB PO SCH ×2 (08:09→21:10)
[2018-09-28] MEDS: ESCITALOPRAM 10 MG TAB PO SCH (08:09)
[2018-09-28] MEDS: ASPIRIN 81 MG TAB PO SCH (08:09)
--- NOTE | 2018-09-28 11:56 | CONS ---
Assessment/Plan Assessment/Plan Assessment/Plan (Daily) 1. End-stage renal disease. s/p HD sunday. Will reevaluate renal function on Sunday. If patient's renal function should stabilize at current creatinine, the patient may no longer need dialysis. Will monitor closely. 2. Volume overload, improving. Continue ultrafiltration dialysis. 3. Anemia. Monitor hemoglobin and hematocrit levels. Will give Epogen as needed. 4. Mineral bone disorder. Continue to monitor calcium and phosphorus levels. Will give phosphate binders as needed. 5. Hypertension. Continue current blood pressure regimen. 6. History of chronic ischemic monitor. Follow up with cardiology. 7. History of lupus, currently quiescent. Continue to monitor. 8. History of bipolar disorder. 9. Hypothyroidism. Continue current medical management. Consultation Date/Type/Reason Admit Date/Time Sep 24, 2018 at 23:55 Initial Consult Date Date/Time of Note DATE: 09/28/18 TIME: 11:55 24 HR Interval Summary Free Text/Dictation s/p HD yesterday denies shortness of breath, n/v makes some urine d/w rn gen nad cv rrr pulm ctab abd soft, nd, nt +bs ext: no edema Exam/Review of Systems Exam Vitals Vital Signs Date Temp Pulse Resp B/P (MAP) Pulse Ox O2 O2 Flow FiO2 Time Delivery Rate 09/28/18 99.0 72 18 112/56 96 Room Air 11:10 (74) 09/25/18 3.0 01:38 Intake and Output 09/27/18 09/27/18 09/28/18 1515:00 23:00 07:00 IntakeIntake Total 600 ml 830 ml OutputOutput Total 1600 ml BalanceBalance -1000 ml 830 ml Results Result Diagram: 09/25/18 0748 09/27/18 0601 Medications Medication Current Medications Acetaminophen (Tylenol Tab) 650 mg Q6H PRN PO MILD PAIN(1-3)OR ELEVATED TEMP; Start 09/25/18 at 02:30 Ondansetron HCl (Zofran Inj) 4 mg Q6H PRN IV NAUSEA AND/OR VOMITING; Start 09/25/18 at 02:30 Quetiapine Fumarate (Seroquel) 100 mg HS PO Last administered on 09/27/18at 20:55; Admin Dose 100 MG; Start 09/25/18 at 02:30 Alprazolam (Xanax) 1 mg Q12 PRN PO ANXIETY Last administered on 09/27/18 21:05; Admin Dose 1 MG; Start 09/25/18 at 09:30 Atorvastatin Calcium (Lipitor) 40 mg QHS PO Last administered on 09/27/18 20:50; Admin Dose 40 MG; Start 09/25/18 at 21:00 Divalproex Sodium (Depakote) 500 mg BID PO Last administered on 09/28/18 08:09; Admin Dose 500 MG; Start 09/25/18 at 21:00 Escitalopram Oxalate (Lexapro) 5 mg DAILY PO Last administered on 09/28/18 08:09; Admin Dose 5 MG; Start 09/26/18 at 09:00 Hydralazine HCl (Apresoline) 25 mg Q6 PRN PO sbp>150; Start 09/25/18 at 09:30 Labetalol HCl (Normodyne) 200 mg BID PO Last administered on 09/27/18 20:54; Admin Dose 200 MG; Start 09/25/18 at 21:00 Epoetin Rickey-epbx (RETACRIT(esrd)) 10,000 unit MoWeFr@1700 SC Last administered on 09/27/18 17:08; Admin Dose 10,000 UNIT; Start 09/25/18 at 17:00 Aspirin (Aspirin) 81 mg DAILY PO Last administered on 09/28/18 08:09; Admin Dose 81 MG; Start 09/26/18 at 09:00 Heparin Sodium (Porcine) (Heparin (1000 Units/ml)) 3,500 unit AFTER DIALYSIS CATHETER Last administered on 09/27/18 10:50; Admin Dose 3,500 UNIT; Start 09/26/18 at 00:00 Levothyroxine Sodium (Synthroid) 250 mcg DAILY@06 PO Last administered on 09/28/18 06:17; Admin Dose 250 MCG; Start 09/27/18 at 06:00 Morphine Sulfate (morphine) 6 mg Q4H PRN PO SEVERE PAIN LEVEL 7-10; Start 09/27/18 at 17:30 JANET PEREZ MD Sep 28, 2018 11:56
--- NOTE | 2018-09-28 12:37 | PN ---
Date/Time of Note Date/Time of Note DATE: 09/28/18 TIME: 12:36 Assessment/Plan VTE Prophylaxis Risk score (from Ns)>0 risk: 6 SCD applied (from Nsg): Yes Pharmacological prophylaxis: heparin Lines/Catheters IV Catheter Type (from Nrsg): permacath Urinary Cath still in place: No Assessment/Plan Hospital Course -Fluid volume overload due to missed hemodialysis. Dr. Rojas is following in nephrology consultation. -Shortness of breath in patient with history of coronary artery disease and stent placement, rule out acute coronary syndrome, cardiac enzymes are negative x3. will obtain 2D echo. Dr. Bashir is asked to see patient in cardiology consultation. -Hypertension -Hypothyroidism -Bipolar disorder -History of lupus -Homelessness, discussed with social media assistant and case management, plan for detention facility placement. Result Diagram: 09/25/18 0748 09/27/18 0601 Subjective 24 Hr Interval Summary Free Text/Dictation Patient has no complaints Exam/Review of Systems Exam Vitals Vital Signs Date Temp Pulse Resp B/P (MAP) Pulse Ox O2 O2 Flow FiO2 Time Delivery Rate 09/28/18 70 12:07 09/28/18 99.0 18 112/56 96 Room Air 11:10 (74) 09/25/18 3.0 01:38 Intake and Output 09/27/18 09/27/18 09/28/18 1515:00 23:00 07:00 IntakeIntake Total 600 ml 830 ml OutputOutput Total 1600 ml BalanceBalance -1000 ml 830 ml Constitutional: well developed Head: normocephalic, atraumatic Neck: supple Respiratory: clear to auscultation Cardiovascular: regular rate and rhythm Gastrointestinal: soft, non-tender Extremities: normal pulses Medications Medication Current Medications Acetaminophen (Tylenol Tab) 650 mg Q6H PRN PO MILD PAIN(1-3)OR ELEVATED TEMP; Start 09/25/18 at 02:30 Ondansetron HCl (Zofran Inj) 4 mg Q6H PRN IV NAUSEA AND/OR VOMITING; Start 09/25/18 at 02:30 Quetiapine Fumarate (Seroquel) 100 mg HS PO Last administered on 09/27/18at 20:55; Admin Dose 100 MG; Start 09/25/18 at 02:30 Alprazolam (Xanax) 1 mg Q12 PRN PO ANXIETY Last administered on 09/27/18 21:05; Admin Dose 1 MG; Start 09/25/18 at 09:30 Atorvastatin Calcium (Lipitor) 40 mg QHS PO Last administered on 09/27/18 20:50; Admin Dose 40 MG; Start 09/25/18 at 21:00 Divalproex Sodium (Depakote) 500 mg BID PO Last administered on 09/28/18 08:09; Admin Dose 500 MG; Start 09/25/18 at 21:00 Escitalopram Oxalate (Lexapro) 5 mg DAILY PO Last administered on 09/28/18 08:09; Admin Dose 5 MG; Start 09/26/18 at 09:00 Hydralazine HCl (Apresoline) 25 mg Q6 PRN PO sbp>150; Start 09/25/18 at 09:30 Labetalol HCl (Normodyne) 200 mg BID PO Last administered on 09/27/18 20:54; Admin Dose 200 MG; Start 09/25/18 at 21:00 Epoetin Rickey-epbx (RETACRIT(esrd)) 10,000 unit MoWeFr@1700 SC Last administered on 09/27/18 17:08; Admin Dose 10,000 UNIT; Start 09/25/18 at 17:00 Aspirin (Aspirin) 81 mg DAILY PO Last administered on 09/28/18 08:09; Admin Dose 81 MG; Start 09/26/18 at 09:00 Heparin Sodium (Porcine) (Heparin (1000 Units/ml)) 3,500 unit AFTER DIALYSIS CATHETER Last administered on 09/27/18 10:50; Admin Dose 3,500 UNIT; Start 09/26/18 at 00:00 Levothyroxine Sodium (Synthroid) 250 mcg DAILY@06 PO Last administered on 09/28/18 06:17; Admin Dose 250 MCG; Start 09/27/18 at 06:00 Morphine Sulfate (morphine) 6 mg Q4H PRN PO SEVERE PAIN LEVEL 7-10; Start 09/27/18 at 17:30 ABBEY CONTRERAS Sep 28, 2018 12:37
[2018-09-28] MEDS: ATORVASTATIN 40 MG TAB PO SCH (21:10)
[2018-09-28] MEDS: QUETIAPINE 100 MG TAB PO SCH (21:10)
[2018-09-29] VITALS (10 sets, daily range): BP systolic 115–126; BP diastolic 57–68; PULSE 69–77; RESP 18–19
[2018-09-29] MEDS: LEVOTHYROXINE 125 MCG TAB PO SCH (06:31)
[2018-09-29] MEDS: ASPIRIN 81 MG TAB PO SCH (08:04)
[2018-09-29] MEDS: LABETALOL 200 MG TAB PO SCH ×2 (08:04→21:02)
[2018-09-29] MEDS: DIVALPROEX (EC) 500 MG TAB PO SCH ×2 (08:04→21:02)
[2018-09-29] MEDS: ESCITALOPRAM 10 MG TAB PO SCH (08:04)
--- NOTE | 2018-09-29 12:25 | PN ---
Date/Time of Note Date/Time of Note DATE: 09/29/18 TIME: 12:24 Assessment/Plan VTE Prophylaxis Risk score (from Ns)>0 risk: 4 SCD applied (from Nsg): Yes Pharmacological prophylaxis: heparin Lines/Catheters IV Catheter Type (from Nrsg): [place] Lock Urinary Cath still in place: No Assessment/Plan Hospital Course -Fluid volume overload due to missed hemodialysis. Dr. Rojas is following in nephrology consultation. -Shortness of breath in patient with history of coronary artery disease and stent placement, rule out acute coronary syndrome, cardiac enzymes are negative x3. will obtain 2D echo. Dr. Bashir is asked to see patient in cardiology consultation. -Hypertension -Hypothyroidism -Bipolar disorder -History of lupus -Homelessness, discussed with director of social services and case management, plan for halfway facility placement. Result Diagram: 09/25/18 0748 09/27/18 0601 Subjective 24 Hr Interval Summary Free Text/Dictation Patient has no complaints, denies shortness of breath Exam/Review of Systems Exam Vitals Vital Signs Date Temp Pulse Resp B/P (MAP) Pulse Ox O2 O2 Flow FiO2 Time Delivery Rate 09/29/18 97.3 71 18 119/60 94 Room Air 11:09 (79) Intake and Output 09/28/18 09/28/18 09/29/18 1515:00 23:00 07:00 IntakeIntake Total 500 ml 800 ml 400 ml BalanceBalance 500 ml 800 ml 400 ml Constitutional: well developed Head: normocephalic, atraumatic Neck: supple Respiratory: diminished breath sounds Cardiovascular: regular rate and rhythm Gastrointestinal: soft, non-tender Extremities: normal pulses Medications Medication Current Medications Acetaminophen (Tylenol Tab) 650 mg Q6H PRN PO MILD PAIN(1-3)OR ELEVATED TEMP; Start 09/25/18 at 02:30 Ondansetron HCl (Zofran Inj) 4 mg Q6H PRN IV NAUSEA AND/OR VOMITING; Start 09/25/18 at 02:30 Quetiapine Fumarate (Seroquel) 100 mg HS PO Last administered on 09/28/18at 21:10; Admin Dose 100 MG; Start 09/25/18 at 02:30 Alprazolam (Xanax) 1 mg Q12 PRN PO ANXIETY Last administered on 09/27/18at 21:05; Admin Dose 1 MG; Start 09/25/18 at 09:30 Atorvastatin Calcium (Lipitor) 40 mg QHS PO Last administered on 09/28/18 21:10; Admin Dose 40 MG; Start 09/25/18 at 21:00 Divalproex Sodium (Depakote) 500 mg BID PO Last administered on 09/29/18 08:04; Admin Dose 500 MG; Start 09/25/18 at 21:00 Escitalopram Oxalate (Lexapro) 5 mg DAILY PO Last administered on 09/29/18 08:04; Admin Dose 5 MG; Start 09/26/18 at 09:00 Hydralazine HCl (Apresoline) 25 mg Q6 PRN PO sbp>150; Start 09/25/18 at 09:30 Labetalol HCl (Normodyne) 200 mg BID PO Last administered on 09/29/18 08:04; Ad min Dose 200 MG; Start 09/25/18 at 21:00 Epoetin Rickey-epbx (RETACRIT(esrd)) 10,000 unit MoWeFr@1700 SC Last administered on 09/27/18 17:08; Admin Dose 10,000 UNIT; Start 09/25/18 at 17:00 Aspirin (Aspirin) 81 mg DAILY PO Last administered on 09/29/18 08:04; Admin Dose 81 MG; Start 09/26/18 at 09:00 Heparin Sodium (Porcine) (Heparin (1000 Units/ml)) 3,500 unit AFTER DIALYSIS CATHETER Last administered on 09/27/18 10:50; Admin Dose 3,500 UNIT; Start 09/26/18 at 00:00 Levothyroxine Sodium (Synthroid) 250 mcg DAILY@06 PO Last administered on 09/29/18 06:31; Admin Dose 250 MCG; Start 09/27/18 at 06:00 Morphine Sulfate (morphine) 6 mg Q4H PRN PO SEVERE PAIN LEVEL 7-10; Start 09/27/18 at 17:30 ABBEY CONTRERAS Sep 29, 2018 12:25
--- NOTE | 2018-09-29 12:53 | CONS ---
Assessment/Plan Assessment/Plan Assessment/Plan (Daily) 1. End-stage renal disease. s/p HD sunday. repeat bmp. If patient's renal function should stabilize at current creatinine, the patient may no longer need dialysis. Will monitor closely. 2. Volume overload, improved with HD 3. Anemia. Monitor hemoglobin and hematocrit levels. Will give Epogen as needed. 4. Mineral bone disorder. Continue to monitor calcium and phosphorus levels. Will give phosphate binders as needed. 5. Hypertension. Continue current blood pressure regimen. 6. History of chronic ischemic monitor. Follow up with cardiology. 7. History of lupus, currently quiescent. Continue to monitor. 8. History of bipolar disorder. 9. Hypothyroidism. Continue current medical management. Consultation Date/Type/Reason Admit Date/Time Sep 24, 2018 at 23:55 Initial Consult Date Date/Time of Note DATE: 09/29/18 TIME: 12:52 24 HR Interval Summary Free Text/Dictation denies shortness of breath today denies n/v. states that she is urinating a large amount although urine output is not measured d/w rn gen nad cv rrr pulm ctab abd soft, nd, nt +bs ext: no edema Exam/Review of Systems Exam Vitals Vital Signs Date Temp Pulse Resp B/P (MAP) Pulse Ox O2 O2 Flow FiO2 Time Delivery Rate 09/29/18 69 12:00 09/29/18 97.3 18 119/60 94 Room Air 11:09 (79) Intake and Output 09/28/18 09/28/18 09/29/18 1515:00 23:00 07:00 IntakeIntake Total 500 ml 800 ml 400 ml BalanceBalance 500 ml 800 ml 400 ml Results Result Diagram: 09/25/18 0748 09/27/18 0601 Medications Medication Current Medications Acetaminophen (Tylenol Tab) 650 mg Q6H PRN PO MILD PAIN(1-3)OR ELEVATED TEMP; Start 09/25/18 at 02:30 Ondansetron HCl (Zofran Inj) 4 mg Q6H PRN IV NAUSEA AND/OR VOMITING; Start 09/25/18 at 02:30 Quetiapine Fumarate (Seroquel) 100 mg HS PO Last administered on 09/28/18at 21:10; Admin Dose 100 MG; Start 09/25/18 at 02:30 Alprazolam (Xanax) 1 mg Q12 PRN PO ANXIETY Last administered on 09/27/18 21:05; Admin Dose 1 MG; Start 09/25/18 at 09:30 Atorvastatin Calcium (Lipitor) 40 mg QHS PO Last administered on 09/28/18 21:10; Admin Dose 40 MG; Start 09/25/18 at 21:00 Divalproex Sodium (Depakote) 500 mg BID PO Last administered on 09/29/18 08:04; Admin Dose 500 MG; Start 09/25/18 at 21:00 Escitalopram Oxalate (Lexapro) 5 mg DAILY PO Last administered on 09/29/18 08:04; Admin Dose 5 MG; Start 09/26/18 at 09:00 Hydralazine HCl (Apresoline) 25 mg Q6 PRN PO sbp>150; Start 09/25/18 at 09:30 Labetalol HCl (Normodyne) 200 mg BID PO Last administered on 09/29/18 08:04; Admin Dose 200 MG; Start 09/25/18 at 21:00 Epoetin Rickey-epbx (RETACRIT(esrd)) 10,000 unit MoWeFr@1700 SC Last administered on 09/27/18 17:08; Admin Dose 10,000 UNIT; Start 09/25/18 at 17:00 Aspirin (Aspirin) 81 mg DAILY PO Last administered on 09/29/18 08:04; Admin Dose 81 MG; Start 09/26/18 at 09:00 Heparin Sodium (Porcine) (Heparin (1000 Units/ml)) 3,500 unit AFTER DIALYSIS CATHETER Last administered on 09/27/18 10:50; Admin Dose 3,500 UNIT; Start 09/26/18 at 00:00 Levothyroxine Sodium (Synthroid) 250 mcg DAILY@06 PO Last administered on 09/29/18 06:31; Admin Dose 250 MCG; Start 09/27/18 at 06:00 Morphine Sulfate (morphine) 6 mg Q4H PRN PO SEVERE PAIN LEVEL 7-10; Start 09/27/18 at 17:30 JANET PEREZ MD Sep 29, 2018 12:53
--- NOTE | 2018-09-29 14:04 | CONS ---
Assessment/Plan Assessment/Plan Hospital Course (Demo Recall) SOB-resolved Preserved left ventricular ejection fraction ESRD on HD-intermittent compliance CAD Psych D/O Poor medical compliance History of meth and cocaine use -Patient admits poor compliance with hemodialysis -Shortness of breath is better after hemodialysis -Fluid management via HD as per renal -Continue aspirin and statin therapy, beta-la as tolerated -DC planning Consultation Date/Type/Reason Admit Date/Time Sep 24, 2018 at 23:55 Initial Consult Date Type of Consult Cardiology Date/Time of Note DATE: 09/29/18 TIME: 14:03 24 HR Interval Summary Free Text/Dictation Denies current shortness of breath, chest pain or palpitations Exam/Review of Systems Vital Signs Vitals Vital Signs Date Temp Pulse Resp B/P (MAP) Pulse Ox O2 O2 Flow FiO2 Time Delivery Rate 09/29/18 69 12:00 09/29/18 97.3 18 119/60 94 Room Air 11:09 (79) Intake and Output 09/28/18 09/28/18 09/29/18 1515:00 23:00 07:00 IntakeIntake Total 500 ml 800 ml 400 ml BalanceBalance 500 ml 800 ml 400 ml Exam Constitutional: alert, oriented (No apparent distress) Head: normocephalic Respiratory: other (Coarse breath sounds bilaterally, no wheezing) Cardiovascular: regular rate and rhythm (S1-S2 heard) Gastrointestinal: soft, non-tender, bowel sounds Extremities: other (No significant edema) Labs Result Diagram: 09/25/18 0748 09/27/18 0601 Medications Medications Current Medications Acetaminophen (Tylenol Tab) 650 mg Q6H PRN PO MILD PAIN(1-3)OR ELEVATED TEMP; Start 09/25/18 at 02:30 Ondansetron HCl (Zofran Inj) 4 mg Q6H PRN IV NAUSEA AND/OR VOMITING; Start 09/25/18 at 02:30 Quetiapine Fumarate (Seroquel) 100 mg HS PO Last administered on 09/28/18at 21:10; Admin Dose 100 MG; Start 09/25/18 at 02:30 Alprazolam (Xanax) 1 mg Q12 PRN PO ANXIETY Last administered on 09/27/18at 21:05; Admin Dose 1 MG; Start 09/25/18 at 09:30 Atorvastatin Calcium (Lipitor) 40 mg QHS PO Last administered on 09/28/18 21:10; Admin Dose 40 MG; Start 09/25/18 at 21:00 Divalproex Sodium (Depakote) 500 mg BID PO Last administered on 09/29/18 08:04; Admin Dose 500 MG; Start 09/25/18 at 21:00 Escitalopram Oxalate (Lexapro) 5 mg DAILY PO Last administered on 09/29/18 08:04; Admin Dose 5 MG; Start 09/26/18 at 09:00 Hydralazine HCl (Apresoline) 25 mg Q6 PRN PO sbp>150; Start 09/25/18 at 09:30 Labetalol HCl (Normodyne) 200 mg BID PO Last administered on 09/29/18 08:04; Admin Dose 200 MG; Start 09/25/18 at 21:00 Epoetin Rickey-epbx (RETACRIT(esrd)) 10,000 unit MoWeFr@1700 SC Last administered on 09/27/18 17:08; Admin Dose 10,000 UNIT; Start 09/25/18 at 17:00 Aspirin (Aspirin) 81 mg DAILY PO Last administered on 09/29/18 08:04; Admin Dose 81 MG; Start 09/26/18 at 09:00 Heparin Sodium (Porcine) (Heparin (1000 Units/ml)) 3,500 unit AFTER DIALYSIS CATHETER Last administered on 09/27/18 10:50; Admin Dose 3,500 UNIT; Start 09/26/18 at 00:00 Levothyroxine Sodium (Synthroid) 250 mcg DAILY@06 PO Last administered on 09/29/18 06:31; Admin Dose 250 MCG; Start 09/27/18 at 06:00 Morphine Sulfate (morphine) 6 mg Q4H PRN PO SEVERE PAIN LEVEL 7-10; Start 09/27/18 at 17:30 Denny Bashir DO Sep 29, 2018 14:04
[2018-09-29] MEDS: ATORVASTATIN 40 MG TAB PO SCH (21:01)
[2018-09-29] MEDS: QUETIAPINE 100 MG TAB PO SCH (21:02)
[2018-09-30] VITALS (10 sets, daily range): BP systolic 109–133; BP diastolic 56–68; PULSE 67–80; RESP 18–20
[2018-09-30] MEDS: LEVOTHYROXINE 125 MCG TAB PO SCH (06:31)
[2018-09-30] MEDS: ALPRAZOLAM 1 MG TAB PO PRN ×2 (08:10→20:59)
[2018-09-30] MEDS: ASPIRIN 81 MG TAB PO SCH (08:10)
[2018-09-30] MEDS: ESCITALOPRAM 10 MG TAB PO SCH (08:10)
[2018-09-30] MEDS: DIVALPROEX (EC) 500 MG TAB PO SCH ×2 (08:10→20:56)
[2018-09-30] MEDS: LABETALOL 200 MG TAB PO SCH ×2 (08:11→20:56)
--- NOTE | 2018-09-30 08:51 | PN ---
DATE: 09/30/2018 SUBJECTIVE: The patient is stable overnight, no fevers, chills, nausea, vomiting. OBJECTIVE: VITAL SIGNS: Blood pressure is 122/68, respiration 18, pulse 67, temperature 98.0. HEENT: Head is normocephalic. NECK: Supple. HEART: Regular rate. LUNGS: Show diminished breath sounds at the base. ABDOMEN: Soft, nontender to palpation without rebound or guarding. EXTREMITIES: Negative for clubbing, cyanosis, no edema. DERMATOLOGIC: No rashes. MUSCULOSKELETAL: No joint effusion. NEUROLOGIC: No change in exam. MEDICATIONS: The patient's medications have been reviewed. LABORATORY DATA: The laboratory data has been reviewed. ASSESSMENT AND PLAN: 1. End-stage renal disease. The patient's last hemodialysis was Sunday. The patient has excellent urinary output; however, renal function did not stabilize after reviewing laboratory data. The patie nt will still require long-term dialysis. Plan for dialysis again today. We will dialyze for 3 hour s 3k bath, calcium 2.5. 2. Volume overload, improving. Continue ultrafiltration dialysis. 3. Anemia. Monitor hemoglobin and hematocrit levels. Will give Epogen with dialysis. 4. Mineral bone disorder, monitor calcium and phosphorus levels, continue phos binders as needed. 5. Hypertension. Continue current blood pressure regimen. 6. History of coronary artery disease. Continue to monitor. Follow up with Cardiology. 7. History of lupus. Continue medical management. 8. History of bipolar disorder. 9. Hypothyroidism. Continue current treatment plan. Dictated By: ELIZABETH RODRIGES DO NR/CHANEL Conf#: [id number] DID#: [id number] CC: DANAY SOLER MD;*EndCC*
--- NOTE | 2018-09-30 12:22 | CONS ---
Assessment/Plan Assessment/Plan Hospital Course (Demo Recall) SOB-resolved Preserved left ventricular ejection fraction ESRD on HD-intermittent compliance CAD Psych D/O Poor medical compliance History of meth and cocaine use -Patient admits poor compliance with hemodialysis -Shortness of breath is better after hemodialysis -Fluid management via HD as per renal -Continue aspirin and statin therapy, beta-la as tolerated -DC planning Consultation Date/Type/Reason Admit Date/Time Sep 24, 2018 at 23:55 Initial Consult Date Type of Consult Cardiology Date/Time of Note DATE: 09/30/18 TIME: 12:22 24 HR Interval Summary Free Text/Dictation Shortness of breath is better. Denies chest pain, palpitations Exam/Review of Systems Vital Signs Vitals Vital Signs Date Temp Pulse Resp B/P (MAP) Pulse Ox O2 O2 Flow FiO2 Time Delivery Rate 09/30/18 98.4 71 20 109/56 98 Room Air 11:25 (73) Intake and Output 09/29/18 09/29/18 09/30/18 1515:00 23:00 07:00 IntakeIntake Total 1200 ml 500 ml BalanceBalance 1200 ml 500 ml Exam Constitutional: alert, oriented (No apparent distress) Respiratory: other (Coarse breath sounds bilaterally, no wheezing) Cardiovascular: regular rate and rhythm (S1-S2 heard) Gastrointestinal: soft, non-tender, bowel sounds Extremities: other (No significant edema) Labs Result Diagram: 09/30/18 0548 Results 24hrs Laboratory Tests Test 09/30/18 05:48 Sodium Level 141 Potassium Level 3.9 Chloride Level 104 Carbon Dioxide Level 25 Anion Gap 12 Blood Urea Nitrogen 50 H Creatinine 3.14 H Est Glomerular Filtrat Rate mL/min 15 L Glucose Level 89 Calcium Level 8.2 L Phosphorus Level 5.6 H Magnesium Level 2.1 Medications Medications Current Medications Acetaminophen (Tylenol Tab) 650 mg Q6H PRN PO MILD PAIN(1-3)OR ELEVATED TEMP; Start 09/25/18 at 02:30 Ondansetron HCl (Zofran Inj) 4 mg Q6H PRN IV NAUSEA AND/OR VOMITING; Start 09/25/18 at 02:30 Quetiapine Fumarate (Seroquel) 100 mg HS PO Last administered on 09/29/18at 21:02; Admin Dose 100 MG; Start 09/25/18 at 02:30 Alprazolam (Xanax) 1 mg Q12 PRN PO ANXIETY Last administered on 09/30/18 08:10; Admin Dose 1 MG; Start 09/25/18 at 09:30 Atorvastatin Calcium (Lipitor) 40 mg QHS PO Last administered on 09/29/18 21:01; Admin Dose 40 MG; Start 09/25/18 at 21:00 Divalproex Sodium (Depakote) 500 mg BID PO Last administered on 09/30/18 08:10; Admin Dose 500 MG; Start 09/25/18 at 21:00 Escitalopram Oxalate (Lexapro) 5 mg DAILY PO Last administered on 09/30/18 08:10; Admin Dose 5 MG; Start 09/26/18 at 09:00 Hydralazine HCl (Apresoline) 25 mg Q6 PRN PO sbp>150; Start 09/25/18 at 09:30 Labetalol HCl (Normodyne) 200 mg BID PO Last administered on 09/29/18 21:02; Admin Dose 200 MG; Start 09/25/18 at 21:00 Epoetin Rickey-epbx (RETACRIT(esrd)) 10,000 unit MoWeFr@1700 SC Last administered on 09/27/18 17:08; Admin Dose 10,000 UNIT; Start 09/25/18 at 17:00 Aspirin (Aspirin) 81 mg DAILY PO Last administered on 09/30/18 08:10; Admin Dose 81 MG; Start 09/26/18 at 09:00 Heparin Sodium (Porcine) (Heparin (1000 Units/ml)) 3,500 unit AFTER DIALYSIS CA THETER Last administered on 09/27/18 10:50; Admin Dose 3,500 UNIT; Start 09/26/18 at 00:00 Levothyroxine Sodium (Synthroid) 250 mcg DAILY@06 PO Last administered on 09/30/18 06:31; Admin Dose 250 MCG; Start 09/27/18 at 06:00 Morphine Sulfate (morphine) 6 mg Q4H PRN PO SEVERE PAIN LEVEL 7-10; Start 09/27/18 at 17:30 Denny Bashir DO Sep 30, 2018 12:22
--- NOTE | 2018-09-30 14:25 | PN ---
Date/Time of Note Date/Time of Note DATE: 09/30/18 TIME: 14:19 Assessment/Plan VTE Prophylaxis Risk score (from Nsg)>0 risk: 3 SCD applied (from Nsg): Yes Pharmacological prophylaxis: heparin Lines/Catheters IV Catheter Type (from Nrsg): Saline Lock Urinary Cath still in place: No Assessment/Plan Hospital Course Patient is awake alert denies chest pain, denies shortness of breath. DC planning to [facility] when bed is available. Assessment/Plan -Fluid volume overload due to missed hemodialysis. Continue hemodialysis. Dr. Rojas is following in nephrology consultation. -Shortness of breath in patient with history of coronary artery disease and stent placement, rule out acute coronary syndrome, cardiac enzymes are negative x3. -Preserved ejection fraction per recent echo. Dr. Bashir is following in cardiology consultation. -Hypertension -Hypothyroidism -Bipolar disorder -History of lupus -Homelessness, DC planning to [facility] facility. Further recommendations based on clinical course. Plan of care discussed with Dr. Holm. Result Diagram: 09/30/1848 Results 24hrs Laboratory Tests Test 09/30/18 05:48 Sodium Level 141 Potassium Level 3.9 Chloride Level 104 Carbon Dioxide Level 25 Anion Gap 12 Blood Urea Nitrogen 50 H Creatinine 3.14 H Est Glomerular Filtrat Rate mL/min 15 L Glucose Level 89 Calcium Level 8.2 L Phosphorus Level 5.6 H Magnesium Level 2.1 Exam/Review of Systems Exam Vitals Vital Signs Date Temp Pulse Resp B/P (MAP) Pulse Ox O2 O2 Flow FiO2 Time Delivery Rate 09/30/18 73 13:17 09/30/18 98.4 20 109/56 98 Room Air 11:25 (73) Intake and Output 09/29/18 09/29/18 09/30/18 1515:00 23:00 07:00 IntakeIntake Total 1200 ml 500 ml BalanceBalance 1200 ml 500 ml Exam Constitutional: alert, oriented Respiratory: diminished breath sounds Cardiovascular: regular rate and rhythm Gastrointestinal: soft, non-tender Extremities: normal pulses, other (Left upper extremity AV fistula) Neurological: nl mental status, lethargic Additional Comments Right chest permacath Results Results 24hrs Laboratory Tests Test 09/30/18 05:48 Sodium Level 141 Potassium Level 3.9 Chloride Level 104 Carbon Dioxide Level 25 Anion Gap 12 Blood Urea Nitrogen 50 H Creatinine 3.14 H Est Glomerular Filtrat Rate mL/min 15 L Glucose Level 89 Calcium Level 8.2 L Phosphorus Level 5.6 H Magnesium Level 2.1 Medications Medication Current Medications Acetaminophen (Tylenol Tab) 650 mg Q6H PRN PO MILD PAIN(1-3)OR ELEVATED TEMP; Start 09/25/18 at 02:30 Ondansetron HCl (Zofran Inj) 4 mg Q6H PRN IV NAUSEA AND/OR VOMITING; Start 09/25/18 at 02:30 Quetiapine Fumarate (Seroquel) 100 mg HS PO Last administered on 09/29/18 21:02; Admin Dose 100 MG; Start 09/25/18 at 02:30 Alprazolam (Xanax) 1 mg Q12 PRN PO ANXIETY Last administered on 09/30/18 08:10; Admin Dose 1 MG; Start 09/25/18 at 09:30 Atorvastatin Calcium (Lipitor) 40 mg QHS PO Last administered on 09/29/18 21:01; Admin Dose 40 MG; Start 09/25/18 at 21:00 Divalproex Sodium (Depakote) 500 mg BID PO Last administered on 09/30/18 08:10; Admin Dose 500 MG; Start 09/25/18 at 21:00 Escitalopram Oxalate (Lexapro) 5 mg DAILY PO Last administered on 09/30/18 08:10; Admin Dose 5 MG; Start 09/26/18 at 09:00 Hydralazine HCl (Apresoline) 25 mg Q6 PRN PO sbp>150; Start 09/25/18 at 09:30 Labetalol HCl (Normodyne) 200 mg BID PO Last administered on 09/29/18 21:02; Admin Dose 200 MG; Start 09/25/18 at 21:00 Epoetin Rickey-epbx (RETACRIT(esrd)) 10,000 unit MoWeFr@1700 SC Last administered on 09/27/18 17:08; Admin Dose 10,000 UNIT; Start 09/25/18 at 17:00 Aspirin (Aspirin) 81 mg DAILY PO Last administered on 09/30/18 08:10; Admin Dose 81 MG; Start 09/26/18 at 09:00 Heparin Sodium (Porcine) (Heparin (1000 Units/ml)) 3,500 unit AFTER DIALYSIS CATHETER Last administered on 09/27/18at 10:50; Admin Dose 3,500 UNIT; Start 09/26/18 at 00:00 Levothyroxine Sodium (Synthroid) 250 mcg DAILY@06 PO Last administered on 09/30/18at 06:31; Admin Dose 250 MCG; Start 09/27/18 at 06:00 Morphine Sulfate (morphine) 6 mg Q4H PRN PO SEVERE PAIN LEVEL 7-10; Start 09/27 at 17:30 YELENA HARDEN Sep 30, 2018 14:25
[2018-09-30] MEDS: EPOETIN ALFA-EPBX (ESRD) 10,000 UNIT/ML VIAL SC SCH (17:10)
[2018-09-30] MEDS: QUETIAPINE 100 MG TAB PO SCH (20:56)
[2018-09-30] MEDS: ATORVASTATIN 40 MG TAB PO SCH (20:56)
[2018-10-01] VITALS (25 sets, daily range): BP systolic 88–133; BP diastolic 52–83; PULSE 63–77; RESP 16–20
[2018-10-01] MEDS: LEVOTHYROXINE 125 MCG TAB PO SCH (06:18)
[2018-10-01] MEDS: ALBUMIN HUMAN 25% 100 ML IV PRN ×2 (08:15→09:57)
[2018-10-01] MEDS: DIVALPROEX (EC) 500 MG TAB PO SCH ×2 (08:23→20:18)
[2018-10-01] MEDS: ESCITALOPRAM 10 MG TAB PO SCH (08:23)
[2018-10-01] MEDS: LABETALOL 200 MG TAB PO SCH ×2 (08:23→20:18)
[2018-10-01] MEDS: ASPIRIN 81 MG TAB PO SCH (08:23)
[2018-10-01] MEDS: HEPARIN 1000 UNITS/ML 10 ML INJ CATHETER SCH (10:48)
--- NOTE | 2018-10-01 15:32 | PN ---
Date/Time of Note Date/Time of Note DATE: 10/01/18 TIME: 15:28 Assessment/Plan VTE Prophylaxis Risk score (from Nsg)>0 risk: 5 SCD applied (from Nsg): Yes Pharmacological prophylaxis: heparin Lines/Catheters IV Catheter Type (from Nrsg): Saline Lock Urinary Cath still in place: No Assessment/Plan Hospital Course No acute events overnight, patient remains hemodynamically stable, in sinus rhythm, status post hemodialysis, pending PT eval. DC planning to [facility] when bed is available. Assessment/Plan -Fluid volume overload due to missed hemodialysis, resolved. Continue hemodialysis. Dr. Rojas is following in nephrology consultation. -Shortness of breath in patient with history of coronary artery disease and stent placement, rule out acute coronary syndrome, cardiac enzymes are negative x3. -Preserved ejection fraction per recent echo. Dr. Bashir is following in cardiology consultation. -Hypertension -Hypothyroidism -Bipolar disorder -History of lupus -Homelessness, DC planning to [facility] facility. Further recommendations based on clinical course. Plan of care discussed with Dr. Holm. Result Diagram: 10/01/18 0605 09/30/18 0548 Results 24hrs Laboratory Tests Test 10/01/18 06:05 Hemoglobin 8.6 L Hematocrit 27.0 L Exam/Review of Systems Exam Vitals Vital Signs Date Temp Pulse Resp B/P (MAP) Pulse Ox O2 O2 Flow FiO2 Time Delivery Rate 10/01/18 98.2 75 18 120/56 93 Room Air 15:22 (77) Intake and Output 09/30/18 09/30/18 10/01/18 1515:00 23:00 07:00 IntakeIntake Total 960 ml 400 ml BalanceBalance 960 ml 400 ml Exam Constitutional: alert, oriented Respiratory: diminished breath sounds Cardiovascular: regular rate and rhythm Gastrointestinal: soft, non-tender Extremities: normal pulses, other (Left upper extremity AV fistula) Neurological: nl mental status, lethargic Additional Comments Right chest permacath Results Results 24hrs Laboratory Tests Test 10/01/18 06:05 Hemoglobin 8.6 L Hematocrit 27.0 L Medications Medication Current Medications Acetaminophen (Tylenol Tab) 650 mg Q6H PRN PO MILD PAIN(1-3)OR ELEVATED TEMP; Start 09/25/18 at 02:30 Ondansetron HCl (Zofran Inj) 4 mg Q6H PRN IV NAUSEA AND/OR VOMITING; Start 09/25/18 at 02:30 Quetiapine Fumarate (Seroquel) 100 mg HS PO Last administered on 09/30/18 20:56; Admin Dose 100 MG; Start 09/25/18 at 02:30 Alprazolam (Xanax) 1 mg Q12 PRN PO ANXIETY Last administered on 09/30/18 20:59; Admin Dose 1 MG; Start 09/25/18 at 09:30 Atorvastatin Calcium (Lipitor) 40 mg QHS PO Last administered on 09/30/18 20:56; Admin Dose 40 MG; Start 09/25/18 at 21:00 Divalproex Sodium (Depakote) 500 mg BID PO Last administered on 10/01/18 08:23; Admin Dose 500 MG; Start 09/25/18 at 21:00 Escitalopram Oxalate (Lexapro) 5 mg DAILY PO Last administered on 10/01/18 08:23; Admin Dose 5 MG; Start 09/26/18 at 09:00 Hydralazine HCl (Apresoline) 25 mg Q6 PRN PO sbp>150; Start 09/25/18 at 09:30 Labetalol HCl (Normodyne) 200 mg BID PO Last administered on 09/30/18 20:56; Admin Dose 200 MG; Start 09/25/18 at 21:00 Epoetin Rickey-epbx (RETACRIT(esrd)) 10,000 unit MoWeFr@1700 SC Last administered on 09/30/18 17:10; Admin Dose 10,000 UNIT; Start 09/25/18 at 17:00 Aspirin (Aspirin) 81 mg DAILY PO Last administered on 10/01/18 08:23; Admin Dose 81 MG; Start 09/26/18 at 09:00 Heparin Sodium (Porcine) (Heparin (1000 Units/ml)) 3,500 unit AFTER DIALYSIS CATHETER Last administered on 10/01/18 10:48; Admin Dose 3,500 UNIT; Start 09/26/18 at 00:00 Levothyroxine Sodium (Synthroid) 250 mcg DAILY@06 PO Last administered on 10/01/18 06:18; Admin Dose 250 MCG; Start 09/27/18 at 06:00 Morphine Sulfate (morphine) 6 mg Q4H PRN PO SEVERE PAIN LEVEL 7-10; Start 09/27/18 at 17:30 Albumin Human 100 ml @ 100 mls/hr WITH DIALYSIS PRN IV SBP <90 DURING DIALYSIS Last administered on 10/01/18at 09:57; Admin Dose 100 MLS/HR; Start 10/01/18 at 07:30 YELENA HARDEN Oct 01, 2018 15:32
--- NOTE | 2018-10-01 17:42 | CONS ---
Assessment/Plan Assessment/Plan Hospital Course (Demo Recall) SOB-resolved Preserved left ventricular ejection fraction ESRD on HD-intermittent compliance CAD Psych D/O Poor medical compliance History of meth and cocaine use -Patient admits poor compliance with hemodialysis -Shortness of breath is better after hemodialysis -Fluid management via HD as per renal -Continue aspirin and statin therapy, beta-la as tolerated -DC planning Consultation Date/Type/Reason Admit Date/Time Sep 24, 2018 at 23:55 Initial Consult Date Type of Consult Cardiology Date/Time of Note DATE: 10/01/18 TIME: 17:42 24 HR Interval Summary Free Text/Dictation Shortness of breath is much better. Denies chest pain Exam/Review of Systems Vital Signs Vitals Vital Signs Date Temp Pulse Resp B/P (MAP) Pulse Ox O2 O2 Flow FiO2 Time Delivery Rate 10/01/18 77 16:00 10/01/18 98.2 18 120/56 93 Room Air 15:22 (77) Intake and Output 09/30/18 09/30/18 10/01/18 1515:00 23:00 07:00 IntakeIntake Total 960 ml 400 ml BalanceBalance 960 ml 400 ml Exam Constitutional: alert, oriented (No apparent distress) Head: normocephalic Respiratory: other (Coarse breath sounds bilaterally, no wheezing) Cardiovascular: regular rate and rhythm (S1-S2 heard) Gastrointestinal: soft, non-tender, bowel sounds Extremities: other (No significant edema) Labs Result Diagram: 10/01/18 0605 09/30/18 0548 Results 24hrs Laboratory Tests Test 10/01/18 06:05 Hemoglobin 8.6 L Hematocrit 27.0 L Medications Medications Current Medications Acetaminophen (Tylenol Tab) 650 mg Q6H PRN PO MILD PAIN(1-3)OR ELEVATED TEMP; Start 09/25/18 at 02:30 Ondansetron HCl (Zofran Inj) 4 mg Q6H PRN IV NAUSEA AND/OR VOMITING; Start 09/25/18 at 02:30 Quetiapine Fumarate (Seroquel) 100 mg HS PO Last administered on 09/30/18at 20:56; Admin Dose 100 MG; Start 09/25/18 at 02:30 Alprazolam (Xanax) 1 mg Q12 PRN PO ANXIETY Last administered on 09/30/18at 20:59; Admin Dose 1 MG; Start 09/25/18 at 09:30 Atorvastatin Calcium (Lipitor) 40 mg QHS PO Last administered on 09/30/18 20:56; Admin Dose 40 MG; Start 09/25/18 at 21:00 Divalproex Sodium (Depakote) 500 mg BID PO Last administered on 10/01/18 08:23; Admin Dose 500 MG; Start 09/25/18 at 21:00 Escitalopram Oxalate (Lexapro) 5 mg DAILY PO Last administered on 10/01/18 08:23; Admin Dose 5 MG; Start 09/26/18 at 09:00 Hydralazine HCl (Apresoline) 25 mg Q6 PRN PO sbp>150; Start 09/25/18 at 09:30 Labetalol HCl (Normodyne) 200 mg BID PO Last administered on 09/30/18 20:56; Admin Dose 200 MG; Start 09/25/18 at 21:00 Epoetin Rickey-epbx (RETACRIT(esrd)) 10,000 unit MoWeFr@1700 SC Last administered on 09/30/18 17:10; Admin Dose 10,000 UNIT; Start 09/25/18 at 17:00 Aspirin (Aspirin) 81 mg DAILY PO Last administered on 10/01/18 08:23; Admin Dose 81 MG; Start 09/26/18 at 09:00 Heparin Sodium (Porcine) (Heparin (1000 Units/ml)) 3,500 unit AFTER DIALYSIS CATHETER Last administered on 10/01/18 10:48; Admin Dose 3,500 UNIT; Start 09/26/18 at 00:00 Levothyroxine Sodium (Synthroid) 250 mcg DAILY@06 PO Last administered on 10/01/18 06:18; Admin Dose 250 MCG; Start 09/27/18 at 06:00 Morphine Sulfate (morphine) 6 mg Q4H PRN PO SEVERE PAIN LEVEL 7-10; Start 09/27/18 at 17:30 Albumin Human 100 ml @ 100 mls/hr WITH DIALYSIS PRN IV SBP <90 DURING DIALYSIS Last administered on 10/01/18 09:57; Admin Dose 100 MLS/HR; Start 10/01/18 at 07:30 Denny Bashir DO Oct 01, 2018 17:42
[2018-10-01] MEDS: ALPRAZOLAM 1 MG TAB PO PRN (20:18)
[2018-10-01] MEDS: ATORVASTATIN 40 MG TAB PO SCH (20:18)
[2018-10-01] MEDS: QUETIAPINE 100 MG TAB PO SCH (20:18)
[2018-10-02] VITALS (23 sets, daily range): BP systolic 101–140; BP diastolic 51–101; PULSE 61–76; RESP 18–22
[2018-10-02] MEDS: LEVOTHYROXINE 125 MCG TAB PO SCH (06:18)
[2018-10-02] MEDS: ASPIRIN 81 MG TAB PO SCH (08:39)
[2018-10-02] MEDS: LABETALOL 200 MG TAB PO SCH ×2 (08:39→22:54)
[2018-10-02] MEDS: ESCITALOPRAM 10 MG TAB PO SCH (08:39)
[2018-10-02] MEDS: DIVALPROEX (EC) 500 MG TAB PO SCH ×2 (08:39→22:52)
--- NOTE | 2018-10-02 09:07 | PN ---
DATE: 10/02/2018 SUBJECTIVE: The patient is stable, no events overnight. The patient had hemodialysis yesterday, godwin erated well. OBJECTIVE: VITAL SIGNS: Blood pressure is 104/51, pulse 67, respirations 18, temperature 98.5. HEENT: Head is normocephalic. NECK: Supple. HEART: Regular rate. LUNGS: Show diminished breath sounds at the base. ABDOMEN: Soft, nontender to palpation without rebound or guarding. EXTREMITIES: Negative for clubbing, cyanosis, no edema. DERMATOLOGIC: No rashes. MUSCULOSKELETAL: No joint effusion. NEUROLOGIC: No change in exam. MEDICATIONS: Reviewed. LABORATORY DATA: Reviewed. ASSESSMENT AND PLAN: 1. End-stage renal disease. Last hemodialysis was on Sunday. Plan is for hemodialysis today. We w ill dialyze for 3 hours, 3K bath, calcium 2.5. 2. Volume overload, improving. Continue ultrafiltration with dialysis. 3. Anemia. Continue to monitor hemoglobin and hematocrit levels. Continue Epogen with hemodialysis . 4. Mineral bone disorder, monitor calcium and phosphorus levels. Continue phosphate binders. 5. Hypertension. Continue current blood pressure regimen. 6. Coronary artery disease. Continue to monitor. Follow up with cardiology. 7. History of lupus. Continue medical management. 8. History of bipolar disorder. 9. Hypothyroidism. Continue Synthroid. Dictated By: ELIZABETH SAM/NTS Conf#: [id number] DID#: [id number] CC: DANAY SOLER MD;*EndCC*
--- NOTE | 2018-10-02 11:48 | PN ---
Date/Time of Note Date/Time of Note DATE: 10/02/18 TIME: 11:44 Assessment/Plan VTE Prophylaxis Risk score (from Nsg)>0 risk: 4 SCD applied (from Nsg): Yes Pharmacological prophylaxis: heparin Lines/Catheters IV Catheter Type (from Nrsg): Peripheral IV Urinary Cath still in place: No Assessment/Plan Hospital Course Patient remains hemodynamically stable, comfortable on room air, pending PT eval. DC planning to [facility] when bed is available. No bed is available per CM meeting today in the morning, case management is working on placement with arrangement for hemodialysis. Assessment/Plan -Fluid volume overload due to missed hemodialysis, resolved. Continue hemodialysis. Dr. Rojas is following in nephrology consultation. -Shortness of breath in patient with history of coronary artery disease and stent placement, rule out acute coronary syndrome, cardiac enzymes are negative x3. -Preserved ejection fraction per recent echo. Dr. Bashir is following in cardiology consultation. -Hypertension -Hypothyroidism -Bipolar disorder -History of lupus -Homelessness, DC planning to [facility] facility. Further recommendations based on clinical course. Plan of care discussed with Dr. Holm. Result Diagram: 10/01/18 0605 09/30/18 0548 Results 24hrs Laboratory Tests Test 10/02/18 10:52 Lab Scanned Report REFERENCE LAB Exam/Review of Systems Exam Vitals Vital Signs Date Temp Pulse Resp B/P (MAP) Pulse Ox O2 O2 Flow FiO2 Time Delivery Rate 10/02/18 98.0 69 18 130/60 97 11:27 (83) 10/02/18 Room Air 09:04 Intake and Output 10/01/18 10/01/18 10/02/18 1515:00 23:00 07:00 IntakeIntake Total 300 ml 300 ml OutputOutput Total 2000 ml BalanceBalance -2000 ml 300 ml 300 ml Exam Constitutional: alert, oriented Respiratory: clear Cardiovascular: regular rate and rhythm Gastrointestinal: soft, non-tender Extremities: normal pulses, other (Left upper extremity AV fistula) Additional Comments Right chest permacath Results Results 24hrs Laboratory Tests Test 10/02/18 10:52 Lab Scanned Report REFERENCE LAB Medications Medication Current Medications Acetaminophen (Tylenol Tab) 650 mg Q6H PRN PO MILD PAIN(1-3)OR ELEVATED TEMP; Start 09/25/18 at 02:30 Ondansetron HCl (Zofran Inj) 4 mg Q6H PRN IV NAUSEA AND/OR VOMITING; Start 09/25/18 at 02:30 Quetiapine Fumarate (Seroquel) 100 mg HS PO Last administered on 10/01/18 20:18 ; Admin Dose 100 MG; Start 09/25/18 at 02:30 Alprazolam (Xanax) 1 mg Q12 PRN PO ANXIETY Last administered on 10/01/18 20:18; Admin Dose 1 MG; Start 09/25/18 at 09:30 Atorvastatin Calcium (Lipitor) 40 mg QHS PO Last administered on 10/01/18 20:18; Admin Dose 40 MG; Start 09/25/18 at 21:00 Divalproex Sodium (Depakote) 500 mg BID PO Last administered on 10/02/18 08:39; Admin Dose 500 MG; Start 09/25/18 at 21:00 Escitalopram Oxalate (Lexapro) 5 mg DAILY PO Last administered on 10/02/18 08:39; Admin Dose 5 MG; Start 09/26/18 at 09:00 Hydralazine HCl (Apresoline) 25 mg Q6 PRN PO sbp>150; Start 09/25/18 at 09:30 Labetalol HCl (Normodyne) 200 mg BID PO Last administered on 09/30/18 20:56; Admin Dose 200 MG; Start 09/25/18 at 21:00 Epoetin Rickey-epbx (RETACRIT(esrd)) 10,000 unit MoWeFr@1700 SC Last administered on 09/30/18 17:10; Admin Dose 10,000 UNIT; Start 09/25/18 at 17:00 Aspirin (Aspirin) 81 mg DAILY PO Last administered on 10/02/18 08:39; Admin Dose 81 MG; Start 09/26/18 at 09:00 Heparin Sodium (Porcine) (Heparin (1000 Units/ml)) 3,500 unit AFTER DIALYSIS CATHETER Last administered on 10/01/18 10:48; Admin Dose 3,500 UNIT; Start 09/26/18 at 00:00 Levothyroxine Sodium (Synthroid) 250 mcg DAILY@06 PO Last administered on 10/02/18 06:18; Admin Dose 250 MCG; Start 09/27/18 at 06:00 Morphine Sulfate (morphine) 6 mg Q4H PRN PO SEVERE PAIN LEVEL 7-10; Start 09/27/18 at 17:30 Albumin Human 100 ml @ 100 mls/hr WITH DIALYSIS PRN IV SBP <90 DURING DIALYSIS Last administered on 10/01/18at 09:57; Admin Dose 100 MLS/HR; Start 10/01/18 at 07:30 YELENA HARDEN Oct 02, 2018 11:47
--- NOTE | 2018-10-02 12:47 | CONS ---
Assessment/Plan Assessment/Plan Hospital Course (Demo Recall) SOB-resolved Preserved left ventricular ejection fraction ESRD on HD-intermittent compliance CAD Psych D/O Poor medical compliance History of meth and cocaine use -Patient admits poor compliance with hemodialysis -Shortness of breath is better after hemodialysis -Fluid management via HD as per renal -Continue aspirin and statin therapy, beta-la as tolerated -DC planning Consultation Date/Type/Reason Admit Date/Time Sep 24, 2018 at 23:55 Initial Consult Date Type of Consult Cardiology Date/Time of Note DATE: 10/02/18 TIME: 12:46 24 HR Interval Summary Free Text/Dictation Denies shortness of breath, chest pain Exam/Review of Systems Vital Signs Vitals Vital Signs Date Temp Pulse Resp B/P (MAP) Pulse Ox O2 O2 Flow FiO2 Time Delivery Rate 10/02/18 Room Air 12:14 10/02/18 98.0 69 18 130/60 97 11:27 (83) Intake and Output 10/01/18 10/01/18 10/02/18 1515:00 23:00 07:00 IntakeIntake Total 300 ml 300 ml OutputOutput Total 2000 ml BalanceBalance -2000 ml 300 ml 300 ml Exam Constitutional: alert, oriented (Dyspnea with speaking) Head: normocephalic Respiratory: other (Coarse breath sounds bilaterally, no wheezing) Cardiovascular: regular rate and rhythm (S1-S2 heard) Gastrointestinal: soft, non-tender, bowel sounds Extremities: other (No significant edema) Labs Result Diagram: 10/01/18 0605 09/30/18 0548 Results 24hrs Laboratory Tests Test 10/02/18 10:52 Lab Scanned Report REFERENCE LAB Medications Medications Current Medications Acetaminophen (Tylenol Tab) 650 mg Q6H PRN PO MILD PAIN(1-3)OR ELEVATED TEMP; Start 09/25/18 at 02:30 Ondansetron HCl (Zofran Inj) 4 mg Q6H PRN IV NAUSEA AND/OR VOMITING; Start 09/25/18 at 02:30 Quetiapine Fumarate (Seroquel) 100 mg HS PO Last administered on 10/01/18at 20:18; Admin Dose 100 MG; Start 09/25/18 at 02:30 Alprazolam (Xanax) 1 mg Q12 PRN PO ANXIETY Last administered on 10/01/18at 20:18; Admin Dose 1 MG; Start 09/25/18 at 09:30 Atorvastatin Calcium (Lipitor) 40 mg QHS PO Last administered on 10/01/18 20:18; Admin Dose 40 MG; Start 09/25/18 at 21:00 Divalproex Sodium (Depakote) 500 mg BID PO Last administered on 10/02/18 08: 39; Admin Dose 500 MG; Start 09/25/18 at 21:00 Escitalopram Oxalate (Lexapro) 5 mg DAILY PO Last administered on 10/02/18 08:39; Admin Dose 5 MG; Start 09/26/18 at 09:00 Hydralazine HCl (Apresoline) 25 mg Q6 PRN PO sbp>150; Start 09/25/18 at 09:30 Labetalol HCl (Normodyne) 200 mg BID PO Last administered on 09/30/18 20:56; Admin Dose 200 MG; Start 09/25/18 at 21:00 Epoetin Rickey-epbx (RETACRIT(esrd)) 10,000 unit MoWeFr@1700 SC Last administered on 09/30/18 17:10; Admin Dose 10,000 UNIT; Start 09/25/18 at 17:00 Aspirin (Aspirin) 81 mg DAILY PO Last administered on 10/02/18 08:39; Admin Dose 81 MG; Start 09/26/18 at 09:00 Heparin Sodium (Porcine) (Heparin (1000 Units/ml)) 3,500 unit AFTER DIALYSIS CATHETER Last administered on 10/01/18 10:48; Admin Dose 3,500 UNIT; Start 09/26/18 at 00:00 Levothyroxine Sodium (Synthroid) 250 mcg DAILY@06 PO Last administered on 10/02/18 06:18; Admin Dose 250 MCG; Start 09/27/18 at 06:00 Morphine Sulfate (morphine) 6 mg Q4H PRN PO SEVERE PAIN LEVEL 7-10; Start 09/27/18 at 17:30 Albumin Human 100 ml @ 100 mls/hr WITH DIALYSIS PRN IV SBP <90 DURING DIALYSIS Last administered on 10/01/18 09:57; Admin Dose 100 MLS/HR; Start 10/01/18 at 07:30 Denny Bashir DO Oct 02, 2018 12:47
[2018-10-02] MEDS: EPOETIN ALFA-EPBX (ESRD) 10,000 UNIT/ML VIAL SC SCH (16:22)
[2018-10-02] MEDS: HEPARIN 1000 UNITS/ML 10 ML INJ CATHETER SCH (22:50)
[2018-10-02] MEDS: QUETIAPINE 100 MG TAB PO SCH (22:52)
[2018-10-02] MEDS: ALPRAZOLAM 1 MG TAB PO PRN (22:52)
[2018-10-02] MEDS: ATORVASTATIN 40 MG TAB PO SCH (22:52)
[2018-10-03] VITALS (12 sets, daily range): BP systolic 106–119; BP diastolic 56–66; PULSE 63–78; RESP 18–20
[2018-10-03] MEDS: LEVOTHYROXINE 125 MCG TAB PO SCH (06:18)
[2018-10-03] MEDS: LABETALOL 200 MG TAB PO SCH ×2 (08:27→22:13)
[2018-10-03] MEDS: ASPIRIN 81 MG TAB PO SCH (08:29)
[2018-10-03] MEDS: ESCITALOPRAM 10 MG TAB PO SCH (08:29)
--- NOTE | 2018-10-03 08:59 | PN ---
DATE: 10/03/2018 SUBJECTIVE: The patient had hemodialysis yesterday, tolerated well. No acute events noted. OBJECTIVE: VITAL SIGNS: Blood pressure is 117/66, pulse 69, respiration 18, temperature 98.2. HEENT: Head is normocephalic. NECK: Supple. HEART: Regular rate. LUNGS: Show diminished breath sounds at the base. ABDOMEN: Soft, nontender to palpation without rebound or guarding. EXTREMITIES: Negative for clubbing, cyanosis, no edema. DERMATOLOGIC: No rashes. MUSCULOSKELETAL: No joint effusion. NEUROLOGIC: No change in exam. LABORATORY DATA: Has been reviewed. MEDICATIONS: Have been reviewed. IMAGING STUDIES: Have been reviewed. ASSESSMENT AND PLAN: 1. End-stage renal disease. The patient had hemodialysis yesterday, tolerated well. Plan for dialy sis tomorrow. 2. Volume overload, improving. Continue ultrafiltration with dialysis. 3. Anemia. monitor hemoglobin and hematocrit levels. Will give Epogen as needed. 4. Mineral bone disorder, monitor calcium and phosphorus levels. Continue phosphatase binders. 5. Hypertension. Continue current blood pressure regimen. 6. Coronary artery disease. Continue medical management. 7. History of lupus. 8. History of bipolar disorder. 9. Hypothyroidism. Continue Synthroid. Dictated By: ELIZABETH RODRIGES DO NR/NTS Conf#: [id number] DID#: [id number] CC: DANAY SOLER MD;*EndCC*
[2018-10-03] MEDS: DIVALPROEX (EC) 500 MG TAB PO SCH ×2 (09:33→22:11)
--- NOTE | 2018-10-03 16:48 | CONS ---
Assessment/Plan Assessment/Plan Hospital Course (Demo Recall) SOB-resolved Preserved left ventricular ejection fraction ESRD on HD-intermittent compliance CAD Psych D/O Poor medical compliance History of meth and cocaine use -Patient admits poor compliance with hemodialysis -Shortness of breath is better after hemodialysis -Fluid management via HD as per renal -Continue aspirin and statin therapy, beta-la as tolerated -DC planning Consultation Date/Type/Reason Admit Date/Time Sep 24, 2018 at 23:55 Initial Consult Date Type of Consult Cardiology Date/Time of Note DATE: 10/03/18 TIME: 16:47 24 HR Interval Summary Free Text/Dictation Denies shortness of breath, chest pain Exam/Review of Systems Vital Signs Vitals Vital Signs Date Temp Pulse Resp B/P (MAP) Pulse Ox O2 O2 Flow FiO2 Time Delivery Rate 10/03/18 72 16:16 10/03/18 98.0 18 106/63 98 15:50 (77) 10/02/18 Room Air 19:20 Intake and Output 10/02/18 10/02/18 10/03/18 1515:00 23:00 07:00 IntakeIntake Total 1500 ml 500 ml OutputOutput Total 2600 ml 2150 ml BalanceBalance -1100 ml -1650 ml Exam Constitutional: alert, oriented (No apparent distress) Head: normocephalic Respiratory: other (Coarse breath sounds bilaterally, no wheezing) Cardiovascular: regular rate and rhythm (S1-S2 heard) Gastrointestinal: soft, non-tender, bowel sounds Extremities: other (No significant edema) Labs Result Diagram: 10/03/18 0738 10/03/18 0738 Results 24hrs Laboratory Tests Test 10/03/18 07:38 White Blood Count 3.8 L Red Blood Count 2.89 L Hemoglobin 9.0 L Hematocrit 28.9 L Mean Corpuscular Volume 100.0 Mean Corpuscular Hemoglobin 31.1 Mean Corpuscular Hemoglobin Concent 31.1 L Red Cell Distribution Width 15.3 H Platelet Count 199 Mean Platelet Volume 10.3 Immature Granulocytes % 0.300 Neutrophils % 50.6 Lymphocytes % 31.0 Monocytes % 12.2 H Eosinophils % 4.8 Basophils % 1.1 Nucleated Red Blood Cells % 0.0 Immature Granulocytes # 0.010 Neutrophils # 1.9 Lymphocytes # 1.2 Monocytes # 0.5 Eosinophils # 0.2 Basophils # 0.0 Nucleated Red Blood Cells # 0.0 Sodium Level 141 Potassium Level 3.5 Chloride Level 102 Carbon Dioxide Level 28 Anion Gap 11 Blood Urea Nitrogen 23 H Creatinine 1.68 H Est Glomerular Filtrat Rate mL/min 32 L Glucose Level 87 Calcium Level 8.8 Medications Medications Current Medications Acetaminophen (Tylenol Tab) 650 mg Q6H PRN PO MILD PAIN(1-3)OR ELEVATED TEMP; Start 09/25/18 at 02:30 Ondansetron HCl (Zofran Inj) 4 mg Q6H PRN IV NAUSEA AND/OR VOMITING; Start 09/25/18 at 02:30 Quetiapine Fumarate (Seroquel) 100 mg HS PO Last administered on 10/02/18 22:52; Admin Dose 100 MG; Start 09/25/18 at 02:30 Alprazolam (Xanax) 1 mg Q12 PRN PO ANXIETY Last administered on 10/02/18 22:52; Admin Dose 1 MG; Start 09/25/18 at 09:30 Atorvastatin Calcium (Lipitor) 40 mg QHS PO Last administered on 10/02/18 22:52; Admin Dose 40 MG; Start 09/25/18 at 21:00 Divalproex Sodium (Depakote) 500 mg BID PO Last administered on 10/03/18 09:33; Admin Dose 500 MG; Start 09/25/18 at 21:00 Escitalopram Oxalate (Lexapro) 5 mg DAILY PO Last administered on 10/03/18 08:29; Admin Dose 5 MG; Start 09/26/18 at 09:00 Hydralazine HCl (Apresoline) 25 mg Q6 PRN PO sbp>150; Start 09/25/18 at 09:30 Labetalol HCl (Normodyne) 200 mg BID PO Last administered on 09/30/18 20:56; Admin Dose 200 MG; Start 09/25/18 at 21:00 Epoetin Rickey-epbx (RETACRIT(esrd)) 10,000 unit MoWeFr@1700 SC Last administered on 10/02/18 16:22; Admin Dose 10,000 UNIT; Start 09/25/18 at 17:00 Aspirin (Aspirin) 81 mg DAILY PO Last administered on 10/03/18 08:29; Admin D ose 81 MG; Start 09/26/18 at 09:00 Heparin Sodium (Porcine) (Heparin (1000 Units/ml)) 3,500 unit AFTER DIALYSIS CATHETER Last administered on 10/02/18at 22:50; Admin Dose 3,500 UNIT; Start 09/26/18 at 00:00 Levothyroxine Sodium (Synthroid) 250 mcg DAILY@06 PO Last administered on 10/03/18at 06:18; Admin Dose 250 MCG; Start 09/27/18 at 06:00 Morphine Sulfate (morphine) 6 mg Q4H PRN PO SEVERE PAIN LEVEL 7-10; Start 09/27/18 at 17:30 Albumin Human 100 ml @ 100 mls/hr WITH DIALYSIS PRN IV SBP <90 DURING DIALYSIS Last administered on 10/01/18at 09:57; Admin Dose 100 MLS/HR; Start 10/01/18 at 07:30 Denny Bashir DO Oct 03, 2018 16:48
--- NOTE | 2018-10-03 16:59 | PN ---
Date/Time of Note Date/Time of Note DATE: 10/03/18 TIME: 16:56 Assessment/Plan VTE Prophylaxis Risk score (from Ns)>0 risk: 3 SCD applied (from Nsg): Yes Pharmacological prophylaxis: heparin Lines/Catheters IV Catheter Type (from Nrs): Saline Lock Urinary Cath still in place: No Assessment/Plan Hospital Course Patient remains hemodynamically stable, comfortable on room air, cleared for D/c. DW case management, working on SNIF placement with arrangement for hemodialysis. Assessment/Plan -Fluid volume overload due to missed hemodialysis, resolved. Continue hemodialysis. Dr. Rojas is following in nephrology consultation. -Shortness of breath in patient with history of coronary artery disease and stent placement, rule out acute coronary syndrome, cardiac enzymes are negative x3. -Preserved ejection fraction per recent echo. Dr. Bashir is following in cardiology consultation. -Hypertension -Hypothyroidism -Bipolar disorder -History of lupus -Homelessness, DC planning to senior care facility. Further recommendations based on clinical course. Plan of care discussed with Dr. Holm. Result Diagram: 10/03/18 0738 10/03/18 0738 Results 24hrs Laboratory Tests Test 10/03/18 07:38 White Blood Count 3.8 L Red Blood Count 2.89 L Hemoglobin 9.0 L Hematocrit 28.9 L Mean Corpuscular Volume 100.0 Mean Corpuscular Hemoglobin 31.1 Mean Corpuscular Hemoglobin Concent 31.1 L Red Cell Distribution Width 15.3 H Platelet Count 199 Mean Platelet Volume 10.3 Immature Granulocytes % 0.300 Neutrophils % 50.6 Lymphocytes % 31.0 Monocytes % 12.2 H Eosinophils % 4.8 Basophils % 1.1 Nucleated Red Blood Cells % 0.0 Immature Granulocytes # 0.010 Neutrophils # 1.9 Lymphocytes # 1.2 Monocytes # 0.5 Eosinophils # 0.2 Basophils # 0.0 Nucleated Red Blood Cells # 0.0 Sodium Level 141 Potassium Level 3.5 Chloride Level 102 Carbon Dioxide Level 28 Anion Gap 11 Blood Urea Nitrogen 23 H Creatinine 1.68 H Est Glomerular Filtrat Rate mL/min 32 L Glucose Level 87 Calcium Level 8.8 Exam/Review of Systems Exam Vitals Vital Signs Date Temp Pulse Resp B/P (MAP) Pulse Ox O2 O2 Flow FiO2 Time Delivery Rate 10/03/18 72 16:16 10/03/18 98.0 18 106/63 98 15:50 (77) 10/02/18 Room Air 19:20 Intake and Output 10/02/18 10/02/18 10/03/18 1414:59 22:59 06:59 IntakeIntake Total 1500 ml 500 ml OutputOutput Total 2600 ml 2150 ml BalanceBalance -1100 ml -1650 ml Exam Constitutional: alert, oriented Respiratory: clear Cardiovascular: regular rate and rhythm Gastrointestinal: soft, non-tender Extremities: normal pulses, other (Left upper extremity AV fistula) Additional Comments Right chest permacath Results Results 24hrs Laboratory Tests Test 10/03/18 07:38 White Blood Count 3.8 L Red Blood Count 2.89 L Hemoglobin 9.0 L Hematocrit 28.9 L Mean Corpuscular Volume 100.0 Mean Corpuscular Hemoglobin 31.1 Mean Corpuscular Hemoglobin Concent 31.1 L Red Cell Distribution Width 15.3 H Platelet Count 199 Mean Platelet Volume 10.3 Immature Granulocytes % 0.300 Neutrophils % 50.6 Lymphocytes % 31.0 Monocytes % 12.2 H Eosinophils % 4.8 Basophils % 1.1 Nucleated Red Blood Cells % 0.0 Immature Granulocytes # 0.010 Neutrophils # 1.9 Lymphocytes # 1.2 Monocytes # 0.5 Eosinophils # 0.2 Basophils # 0.0 Nucleated Red Blood Cells # 0.0 Sodium Level 141 Potassium Level 3.5 Chloride Level 102 Carbon Dioxide Level 28 Anion Gap 11 Blood Urea Nitrogen 23 H Creatinine 1.68 H Est Glomerular Filtrat Rate mL/min 32 L Glucose Level 87 Calcium Level 8.8 Medications Medication Current Medications Acetaminophen (Tylenol Tab) 650 mg Q6H PRN PO MILD PAIN(1-3)OR ELEVATED TEMP; Start 09/25/18 at 02:30 Ondansetron HCl (Zofran Inj) 4 mg Q6H PRN IV NAUSEA AND/OR VOMITING; Start 09/25/18 at 02:30 Quetiapine Fumarate (Seroquel) 100 mg HS PO Last administered on 10/02/18at 22:52; Admin Dose 100 MG; Start 09/25/18 at 02:30 Alprazolam (Xanax) 1 mg Q12 PRN PO ANXIETY Last administered on 10/02/18at 22:52; Admin Dose 1 MG; Start 09/25/18 at 09:30 Atorvastatin Calcium (Lipitor) 40 mg QHS PO Last administered on 10/02/18 22:52; Admin Dose 40 MG; Start 09/25/18 at 21:00 Divalproex Sodium (Depakote) 500 mg BID PO Last administered on 10/03/18 09:33; Admin Dose 500 MG; Start 09/25/18 at 21:00 Escitalopram Oxalate (Lexapro) 5 mg DAILY PO Last administered on 10/03/18 08:29; Admin Dose 5 MG; Start 09/26/18 at 09:00 Hydralazine HCl (Apresoline) 25 mg Q6 PRN PO sbp>150; Start 09/25/18 at 09:30 Labetalol HCl (Normodyne) 200 mg BID PO Last administered on 09/30/18 20:56; Admin Dose 200 MG; Start 09/25/18 at 21:00 Epoetin Rickey-epbx (RETACRIT(esrd)) 10,000 unit MoWeFr@1700 SC Last administered on 10/02/18 16:22; Admin Dose 10,000 UNIT; Start 09/25/18 at 17:00 Aspirin (Aspirin) 81 mg DAILY PO Last administered on 10/03/18 08:29; Admin Dose 81 MG; Start 09/26/18 at 09:00 Heparin Sodium (Porcine) (Heparin (1000 Units/ml)) 3,500 unit AFTER DIALYSIS CATHETER Last administered on 10/02/18 22:50; Admin Dose 3,500 UNIT; Start 09/26/18 at 00:00 Levothyroxine Sodium (Synthroid) 250 mcg DAILY@06 PO Last administered on 10/03/18 06:18; Admin Dose 250 MCG; Start 09/27/18 at 06:00 Morphine Sulfate (morphine) 6 mg Q4H PRN PO SEVERE PAIN LEVEL 7-10; Start 09/27/18 at 17:30 Albumin Human 100 ml @ 100 mls/hr WITH DIALYSIS PRN IV SBP <90 DURING DIALYSIS Last administered on 10/01/18 09:57; Admin Dose 100 MLS/HR; Start 10/01/18 at 07:30 YELENA HARDEN Oct 03, 2018 16:58
[2018-10-03] MEDS: ATORVASTATIN 40 MG TAB PO SCH (22:11)
[2018-10-03] MEDS: QUETIAPINE 100 MG TAB PO SCH (22:12)
[2018-10-04] VITALS (26 sets, daily range): BP systolic 97–144; BP diastolic 52–71; PULSE 66–78; RESP 18–20
[2018-10-04] MEDS: LEVOTHYROXINE 125 MCG TAB PO SCH (07:14)
[2018-10-04] MEDS: ASPIRIN 81 MG TAB PO SCH (08:09)
[2018-10-04] MEDS: DIVALPROEX (EC) 500 MG TAB PO SCH ×2 (08:09→21:49)
[2018-10-04] MEDS: LABETALOL 200 MG TAB PO SCH ×2 (08:09→21:50)
[2018-10-04] MEDS: ESCITALOPRAM 10 MG TAB PO SCH (08:10)
--- NOTE | 2018-10-04 08:32 | PN ---
DATE: 10/04/2018 SUBJECTIVE: The patient is stable, no events overnight. The patient is scheduled for hemodialysis t tyrel. OBJECTIVE: VITAL SIGNS: Blood pressure is 119/65, pulse 70, respiration 19, temperature 98.4. HEENT: Head is normocephalic. NECK: Supple. HEART: Regular rate. LUNGS: Show diminished breath sounds at the base. ABDOMEN: Soft, nontender to palpation. No rebound or guarding. EXTREMITIES: Negative for clubbing, cyanosis, no edema. DERMATOLOGIC: No rashes. MUSCULOSKELETAL: No joint effusion. NEUROLOGIC: No change in exam. MEDICATIONS: The patient's medications have been reviewed. LABORATORY DATA: Has been reviewed. ASSESSMENT AND PLAN: 1. End-stage renal disease. Plan is for hemodialysis today. We will dialyze for 3 hours 2k bath, ca lcium 2.5. 2. Volume overload, improving. Continue ultrafiltration with dialysis. 3. Anemia. Monitor hemoglobin and hematocrit levels. Will give Epogen as needed. 4. Mineral bone disorder, monitor calcium and phosphorus levels. Continue phosphate binders. 5. Hypertension. Continue current blood pressure regimen. 6. Coronary artery disease. Continue medical management. 7. History of lupus. 8. Ho bipolar disorder. 9. Hypothyroidism. Continue Synthroid. Dictated By: ELIZABETH RODRIGES DO NR/NTS Conf#: [id number] DID#: [id number] CC: DANAY SOLER MD;*EndCC*
--- NOTE | 2018-10-04 10:50 | PN ---
Date/Time of Note Date/Time of Note DATE: 10/04/18 TIME: 10:50 Assessment/Plan VTE Prophylaxis Risk score (from Ns)>0 risk: 3 SCD applied (from Ns): Yes SCD contraindicated: other Pharmacological prophylaxis: other Pharm contraindication: other Lines/Catheters IV [facility]ter Type (from [email or web address] Saline Lock Urinary Cath still in place: No Assessment/Plan Assessment/Plan -Fluid volume overload due to missed hemodialysis, resolved. - Continue hemodialysis. -Dr. Rojas follows in nephrology consultation. -Shortness of breath in patient with history of coronary artery disease and stent placement, rule out acute coronary syndrome - cardiac enzymes are negative x3. -Preserved ejection fraction per recent echo. - Dr. Bashir follows in cardiology consultation. -Hypertension -Hypothyroidism -Bipolar disorder -History of lupus -Homelessness, DC planning to shelter facility. Further recommendations based on clinical course. Plan of care discussed with Dr. Holm. Result Diagram: 10/03/18 0738 10/03/18 0738 Subjective 24 Hr Interval Summary Free Text/Dictation - NAD - afebrile - pending SNF placement - no new issues reported overnight - staff Constitutional: requiring O2 Eyes: no complaints Respiratory: no complaints Cardiovascular: no complaints Gastrointestinal: no complaints Genitourinary: no complaints Musculoskeletal: other (general weakness) Skin: no complaints Exam/Review of Systems Exam Vitals Vital Signs Date Temp Pulse Resp B/P (MAP) Pulse Ox O2 O2 Flow FiO2 Time Delivery Rate 10/04/18 70 08:42 10/04/18 98.4 19 118/65 95 07:22 (82) 10/04/18 Room Air 04:00 Intake and Output 10/03/18 10/03/18 10/04/18 1515:00 23:00 07:00 IntakeIntake Total 1000 ml 400 ml BalanceBalance 1000 ml 400 ml Constitutional: alert, well developed Psych: nl mood/affect Head: atraumatic Eyes: nl lids ENMT: nl external ears & nose Neck: non-tender Respiratory: clear to auscultation Cardiovascular: nl pulses, other (LUE- AV Fistula) Gastrointestinal: soft, non-tender Musculoskeletal: muscle weakness Extremities: edema (traces BLE ) Neurological: confused Lymph: nontender Medications Medication Current Medications Acetaminophen (Tylenol Tab) 650 mg Q6H PRN PO MILD PAIN(1-3)OR ELEVATED TEMP; Start 09/25/18 at 02:30 Ondansetron HCl (Zofran Inj) 4 mg Q6H PRN IV NAUSEA AND/OR VOMITING; Start 09/25/18 at 02:30 Quetiapine Fumarate (Seroquel) 100 mg HS PO Last administered on 10/03/18 22:12; Admin Dose 100 MG; Start 09/25/18 at 02:30 Alprazolam (Xanax) 1 mg Q12 PRN PO ANXIETY Last administered on 10/02/18 22:52; Admin Dose 1 MG; Start 09/25/18 at 09:30 Atorvastatin Calcium (Lipitor) 40 mg QHS PO Last administered on 10/03/18 22:11; Admin Dose 40 MG; Start 09/25/18 at 21:00 Divalproex Sodium (Depakote) 500 mg BID PO Last administered on 10/04/18 08:09; Admin Dose 500 MG; Start 09/25/18 at 21:00 Escitalopram Oxalate (Lexapro) 5 mg DAILY PO Last administered on 10/04/18 08:10; Admin Dose 5 MG; Start 09/26/18 at 09:00 Hydralazine HCl (Apresoline) 25 mg Q6 PRN PO sbp>150; Start 09/25/18 at 09:30 Labetalol HCl (Normodyne) 200 mg BID PO Last administered on 10/03/18 22:13; Admin Dose 200 MG; Start 09/25/18 at 21:00 Epoetin Rickey-epbx (RETACRIT(esrd)) 10,000 unit MoWeFr@1700 SC Last administered on 10/02/18 16:22; Admin Dose 10,000 UNIT; Start 09/25/18 at 17:00 Aspirin (Aspirin) 81 mg DAILY PO Last administered on 10/04/18 08:09; Admin Dose 81 MG; Start 09/26/18 at 09:00 Heparin Sodium (Porcine) (Heparin (1000 Units/ml)) 3,500 unit AFTER DIALYSIS CATHETER Last administered on 10/02/18 22:50; Admin Dose 3,500 UNIT; Start 09/26/18 at 00:00 Levothyroxine Sodium (Synthroid) 250 mcg DAILY@06 PO Last administered on 4/12/19at 07:14; Admin Dose 250 MCG; Start 09/27/18 at 06:00 Morphine Sulfate (morphine) 6 mg Q4H PRN PO SEVERE PAIN LEVEL 7-10; Start 09/27/18 at 17:30 Albumin Human 100 ml @ 100 mls/hr WITH DIALYSIS PRN IV SBP <90 DURING DIALYSIS Last administered on 10/01/18at 09:57; Admin Dose 100 MLS/HR; Start 10/01/18 at 07:30 GURU NGUYỄN Oct 04, 2018 10:50
--- NOTE | 2018-10-04 13:03 | CONS ---
Assessment/Plan Assessment/Plan Hospital Course (Demo Recall) SOB-resolved Preserved left ventricular ejection fraction ESRD on HD-intermittent compliance CAD Psych D/O Poor medical compliance History of meth and cocaine use -Patient admits poor compliance with hemodialysis -Shortness of breath is better after hemodialysis -Fluid management via HD as per renal -Continue aspirin and statin therapy, beta-la as tolerated -DC planning Consultation Date/Type/Reason Admit Date/Time Sep 24, 2018 at 23:55 Initial Consult Date Type of Consult Cardiology Date/Time of Note DATE: 10/04/18 TIME: 13:02 24 HR Interval Summary Free Text/Dictation Denies shortness of breath, chest pain or palpitations Exam/Review of Systems Vital Signs Vitals Vital Signs Date Temp Pulse Resp B/P (MAP) Pulse Ox O2 O2 Flow FiO2 Time Delivery Rate 10/04/18 97.9 71 18 120/58 93 11:01 (78) 10/04/18 Room Air 04:00 Intake and Output 10/03/18 10/03/18 10/04/18 1515:00 23:00 07:00 IntakeIntake Total 1000 ml 400 ml BalanceBalance 1000 ml 400 ml Exam Constitutional: alert, oriented (Eating lunch, no apparent distress) Head: normocephalic Respiratory: other (Coarse breath sounds bilaterally, no wheezing) Cardiovascular: regular rate and rhythm (S1-S2 heard) Gastrointestinal: soft, non-tender, bowel sounds Extremities: other (No significant edema) Labs Result Diagram: 10/03/18 0738 10/03/18 0738 Medications Medications Current Medications Acetaminophen (Tylenol Tab) 650 mg Q6H PRN PO MILD PAIN(1-3)OR ELEVATED TEMP; Start 09/25/18 at 02:30 Ondansetron HCl (Zofran Inj) 4 mg Q6H PRN IV NAUSEA AND/OR VOMITING; Start 09/25/18 at 02:30 Quetiapine Fumarate (Seroquel) 100 mg HS PO Last administered on 10/03/18at 22: 12; Admin Dose 100 MG; Start 09/25/18 at 02:30 Alprazolam (Xanax) 1 mg Q12 PRN PO ANXIETY Last administered on 10/02/18at 22:52; Admin Dose 1 MG; Start 09/25/18 at 09:30 Atorvastatin Calcium (Lipitor) 40 mg QHS PO Last administered on 10/03/18 22:11; Admin Dose 40 MG; Start 09/25/18 at 21:00 Divalproex Sodium (Depakote) 500 mg BID PO Last administered on 10/04/18 08:09; Admin Dose 500 MG; Start 09/25/18 at 21:00 Escitalopram Oxalate (Lexapro) 5 mg DAILY PO Last administered on 10/04/18 08:10; Admin Dose 5 MG; Start 09/26/18 at 09:00 Hydralazine HCl (Apresoline) 25 mg Q6 PRN PO sbp>150; Start 09/25/18 at 09:30 Labetalol HCl (Normodyne) 200 mg BID PO Last administered on 10/03/18 22:13; Admin Dose 200 MG; Start 09/25/18 at 21:00 Epoetin Rickey-epbx (RETACRIT(esrd)) 10,000 unit MoWeFr@1700 SC Last administered on 10/02/18 16:22; Admin Dose 10,000 UNIT; Start 09/25/18 at 17:00 Aspirin (Aspirin) 81 mg DAILY PO Last administered on 10/04/18 08:09; Admin Dose 81 MG; Start 09/26/18 at 09:00 Heparin Sodium (Porcine) (Heparin (1000 Units/ml)) 3,500 unit AFTER DIALYSIS CATHETER Last administered on 10/02/18 22:50; Admin Dose 3,500 UNIT; Start 09/26/18 at 00:00 Levothyroxine Sodium (Synthroid) 250 mcg DAILY@06 PO Last administered on 10/04/18 07:14; Admin Dose 250 MCG; Start 09/27/18 at 06:00 Morphine Sulfate (morphine) 6 mg Q4H PRN PO SEVERE PAIN LEVEL 7-10; Start 09/27/18 at 17:30 Albumin Human 100 ml @ 100 mls/hr WITH DIALYSIS PRN IV SBP <90 DURING DIALYSIS Last administered on 10/01/18 09:57; Admin Dose 100 MLS/HR; Start 10/01/18 at 07:30 Denny Bashir DO Oct 04, 2018 13:03
[2018-10-04] MEDS: EPOETIN ALFA-EPBX (ESRD) 10,000 UNIT/ML VIAL SC SCH (16:15)
[2018-10-04] MEDS: HEPARIN 1000 UNITS/ML 10 ML INJ CATHETER SCH (17:27)
[2018-10-04] MEDS: QUETIAPINE 100 MG TAB PO SCH (21:49)
[2018-10-04] MEDS: ATORVASTATIN 40 MG TAB PO SCH (21:49)
[2018-10-05] VITALS (9 sets, daily range): BP systolic 114–133; BP diastolic 56–73; PULSE 68–81; RESP 18
[2018-10-05] MEDS: ALPRAZOLAM 1 MG TAB PO PRN ×2 (01:02→20:18)
[2018-10-05] MEDS: LEVOTHYROXINE 125 MCG TAB PO SCH (06:26)
[2018-10-05] MEDS: DIVALPROEX (EC) 500 MG TAB PO SCH ×2 (08:14→20:18)
[2018-10-05] MEDS: ESCITALOPRAM 10 MG TAB PO SCH (08:15)
[2018-10-05] MEDS: LABETALOL 200 MG TAB PO SCH ×2 (08:15→20:18)
[2018-10-05] MEDS: ASPIRIN 81 MG TAB PO SCH (08:15)
--- NOTE | 2018-10-05 08:47 | PN ---
DATE: 10/05/2018 SUBJECTIVE: The patient is stable, no events overnight. The patient had hemodialysis yesterday. OBJECTIVE: VITAL SIGNS: Blood pressure is 131/65, pulse 69, respiration 18, temperature 98.1. HEENT: Head is normocephalic. NECK: Supple. HEART: Regular rate. LUNGS: Show diminished breath sounds at the base. ABDOMEN: Soft, nontender to palpation without rebound or guarding. EXTREMITIES: Negative for clubbing, cyanosis, no edema. DERMATOLOGIC: No rashes. MUSCULOSKELETAL: No joint effusion. NEUROLOGIC: No change in exam. MEDICATIONS: The patient's medications have been reviewed. LABORATORY DATA: Has been reviewed. ASSESSMENT AND PLAN: 1. End-stage renal disease. The patient had hemodialysis yesterday and tolerated it well. Anticipa te next hemodialysis on Sunday. 2. Volume overload, improved. Continue ultrafiltration dialysis. 3. Anemia. Monitor hemoglobin and hematocrit levels. Will continue Epogen as needed. 4. Mineral bone disorder. The patient is hypophosphatemic. Will start the patient on low-dose phos phate binders. 5. Hypertension. Continue current blood pressure regimen. 6. Coronary artery disease. Continue medical management. 7. History of lupus. 8. History of bipolar disorder. 9. History of hypothyroidism. Continue Synthroid. Dictated By: ELIZABETH SAM/CHANEL Conf#: [id number] DID#: [id number] CC: DANAY SOLER MD;*EndCC*
--- NOTE | 2018-10-05 09:14 | CONS ---
Assessment/Plan Assessment/Plan Assessment/Plan (Daily) SOB-resolved Preserved left ventricular ejection fraction ESRD on HD-intermittent compliance CAD Psych D/O Poor medical compliance History of meth and cocaine use -Patient admits poor compliance with hemodialysis -Shortness of breath is better after hemodialysis -Fluid management via HD as per renal -Continue aspirin and statin therapy, beta-la as tolerated -DC planning Consultation Date/Type/Reason Admit Date/Time Sep 24, 2018 at 23:55 Initial Consult Date Type of Consult Cardiology Date/Time of Note DATE: 10/05/18 TIME: 09:13 24 HR Interval Summary Free Text/Dictation The patient with no change Exam/Review of Systems Vital Signs Vitals Vital Signs Date Temp Pulse Resp B/P (MAP) Pulse Ox O2 O2 Flow FiO2 Time Delivery Rate 10/05/18 69 08:07 10/05/18 98.1 18 131/65 96 07:07 (87) 10/05/18 Room Air 00:00 Intake and Output 10/04/18 10/04/18 10/05/18 1515:00 23:00 07:00 IntakeIntake Total 500 ml 450 ml OutputOutput Total 200 ml 2000 ml BalanceBalance -200 ml -1500 ml 450 ml Labs Result Diagram: 10/03/1838 10/03/18737 Medications Medications Current Medications Acetaminophen (Tylenol Tab) 650 mg Q6H PRN PO MILD PAIN(1-3)OR ELEVATED TEMP; Start 09/25/18 at 02:30 Ondansetron HCl (Zofran Inj) 4 mg Q6H PRN IV NAUSEA AND/OR VOMITING; Start 09/25/18 at 02:30 Quetiapine Fumarate (Seroquel) 100 mg HS PO Last administered on 10/04/18at 21:49; Admin Dose 100 MG; Start 09/25/18 at 02:30 Alprazolam (Xanax) 1 mg Q12 PRN PO ANXIETY Last administered on 10/05/18at 01:02; Admin Dose 1 MG; Start 09/25/18 at 09:30 Atorvastatin Calcium (Lipitor) 40 mg QHS PO Last administered on 10/04/18 21:49; Admin Dose 40 MG; Start 09/25/18 at 21:00 Divalproex Sodium (Depakote) 500 mg BID PO Last administered on 10/05/18at 08:14; Admin Dose 500 MG; Start 09/25/18 at 21:00 Escitalopram Oxalate (Lexapro) 5 mg DAILY PO Last administered on 10/05/18 08:15; Admin Dose 5 MG; Start 09/26/18 at 09:00 Hydralazine HCl (Apresoline) 25 mg Q6 PRN PO sbp>150; Start 09/25/18 at 09:30 Labetalol HCl (Normodyne) 200 mg BID PO Last administered on 10/05/18 08:15; Admin Dose 200 MG; Start 09/25/18 at 21:00 Epoetin Rickey-epbx (RETACRIT(esrd)) 10,000 unit MoWeFr@1700 SC Last administered on 10/04/18 16:15; Admin Dose 10,000 UNIT; Start 09/25/18 at 17:00 Aspirin (Aspirin) 81 mg DAILY PO Last administered on 10/05/18 08:15; Admin Dose 81 MG; Start 09/26/18 at 09:00 Heparin Sodium (Porcine) (Heparin (1000 Units/ml)) 3,500 unit AFTER DIALYSIS CATHETER Last administered on 10/04/18 17:27; Admin Dose 3,500 UNIT; Start 09/26/18 at 00:00 Levothyroxine Sodium (Synthroid) 250 mcg DAILY@06 PO Last administered on 10/05/18 06:26; Admin Dose 250 MCG; Start 09/27/18 at 06:00 Morphine Sulfate (morphine) 6 mg Q4H PRN PO SEVERE PAIN LEVEL 7-10; Start 09/27/18 at 17:30 Albumin Human 100 ml @ 100 mls/hr WITH DIALYSIS PRN IV SBP <90 DURING DIALYSIS Last administered on 10/01/18 09:57; Admin Dose 100 MLS/HR; Start 10/01/18 at 07:30 Multivit/Ca Carb/ B Cmplx/FA/Prenat (Leah-Jerod) 1 tab DAILY PO ; Start 10/05/18 at 09:00 Sevelamer Carbonate (Renvela) 800 mg WITH MEALS PO ; Start 10/05/18 at 11:50 ELICEO SHELL MD Oct 05, 2018 09:14
[2018-10-05] MEDS: MULTIVIT/CA CARB/B CMPLX/FA TAB PO SCH (12:22)
[2018-10-05] MEDS: SEVELAMER CARBONATE 800 MG TABLET PO SCH ×2 (12:22→17:55)
[2018-10-05] MEDS: QUETIAPINE 100 MG TAB PO SCH (20:18)
[2018-10-05] MEDS: ATORVASTATIN 40 MG TAB PO SCH (20:18)
[2018-10-06] VITALS: BP 93/55; PULSE 65; RESP 18
--- NOTE | 2018-10-06 02:08 | PN ---
DATE: 10/05/2018 SUBJECTIVE: Followup on end-stage renal disease, coronary artery disease with recent volume overload . The patient has a preserved LV function, history of bipolar disorder. The patient is breathing co mfortably at rest, does get short of breath on exertion. Denies any chest pain, no reported fever or chills. PHYSICAL EXAMINATION: GENERAL: The patient is awake, alert. VITAL SIGNS: Temperature 98.9, pulse 70, respiration 18, blood pressure 133/73, O2 saturation 98% on room air. HEENT: No eye discharge or redness. Conjunctivae normal. Oropharynx clear. NECK: No mass. CHEST: Fairly clear. CARDIOVASCULAR: S1, S2 normal. ABDOMEN: Soft, nondistended, nontender. EXTREMITIES: No edema. NEUROLOGIC: The patient is awake, alert, fairly oriented with no gross focal deficit. IMPRESSION: 1. Fluid overload due to missed hemodialysis. The patient currently is euvolemic. Continue dialysi s as per Dr. Rojas. 2. Hypertension. 3. Hypothyroidism. 4. Bipolar disorder. 5. History of lupus. 6. Homelessness. DISPOSITION: Discharge to senior living facility when bed available. Dictated By: DANAY CORLEY/CHANEL Conf#: [id number] DID#: [id number]
[2018-10-06 04:00] VITALS: BP 96/51; PULSE 63; RESP 18
[2018-10-06] MEDS: LEVOTHYROXINE 125 MCG TAB PO SCH (05:40)
[2018-10-06 08:13] VITALS: BP 120/58; PULSE 65; RESP 17
--- NOTE | 2018-10-06 08:22 | PN ---
DATE: 10/06/2018 SUBJECTIVE: The patient is stable, no events overnight. No fevers, chills, nausea, or vomiting. OBJECTIVE: VITAL SIGNS: Blood pressure is 96/54, respirations 18, pulse 63, temperature 98.6. HEENT: Head is normocephalic. NECK: Supple. HEART: Regular rate. LUNGS: Show diminished breath sounds at the base. ABDOMEN: Soft, nontender to palpation without rebound or guarding. EXTREMITIES: Negative for clubbing, cyanosis, no edema. DERMATOLOGIC: No rashes. MUSCULOSKELETAL: No joint effusion. NEUROLOGIC: No change in exam. MEDICATIONS: Reviewed. LABORATORY DATA: Reviewed. ASSESSMENT AND PLAN: 1. End-stage renal disease. The patient's last hemodialysis was on Sunday. Anticipate dialysis ivett . 2. Volume overload, improved. Continue ultrafiltration with dialysis. 3. Anemia. Continue to monitor hemoglobin and hematocrit levels. Continue Epogen. 4. Mineral bone disorder, monitor calcium and phosphorus levels. 5. Hypertension. Continue current blood pressure regimen. 6. Coronary artery disease. Continue medical management. 7. Hypothyroidism. Continue Synthroid. 8. History of lupus. 9. History of bipolar disorder. Dictated By: ELIZABETH RODRIGES DO NR/NTS Conf#: [id number] DID#: [id number] CC: DANAY SOLER MD;*EndCC*
[2018-10-06] MEDS: ESCITALOPRAM 10 MG TAB PO SCH (08:31)
[2018-10-06] MEDS: LABETALOL 200 MG TAB PO SCH ×2 (08:31→20:23)
[2018-10-06] MEDS: ASPIRIN 81 MG TAB PO SCH (08:31)
[2018-10-06] MEDS: DIVALPROEX (EC) 500 MG TAB PO SCH ×2 (08:31→20:20)
[2018-10-06] MEDS: SEVELAMER CARBONATE 800 MG TABLET PO SCH ×3 (08:34→17:43)
[2018-10-06] MEDS: MULTIVIT/CA CARB/B CMPLX/FA TAB PO SCH (08:37)
[2018-10-06] MEDS ORDERED: ALTEPLASE (CATHFLO) 2 MG INJ CATHETER PRN (09:00)
[2018-10-06 13:49] VITALS: BP 131/60; PULSE 66; RESP 19
[2018-10-06 20:00] VITALS: BP 116/64; PULSE 67; RESP 18
[2018-10-06] MEDS: QUETIAPINE 100 MG TAB PO SCH (20:20)
[2018-10-06] MEDS: ATORVASTATIN 40 MG TAB PO SCH (20:20)
[2018-10-07] VITALS (18 sets, daily range): BP systolic 96–143; BP diastolic 56–90; PULSE 62–81; RESP 16–19
[2018-10-07] MEDS: LEVOTHYROXINE 125 MCG TAB PO SCH (05:40)
--- NOTE | 2018-10-07 08:56 | PN ---
DATE: 10/07/2018 SUBJECTIVE: The patient is stable, no events overnight. OBJECTIVE: VITAL SIGNS: Blood pressure is 131/72, respirations 18, pulse 67, temperature 98.4. HEENT: Head is normocephalic. NECK: Supple. HEART: Regular rate. LUNGS: Show diminished breath sounds at the base. ABDOMEN: Soft, nontender to palpation. No rebound or guarding. EXTREMITIES: Negative for clubbing, cyanosis, no edema. DERMATOLOGIC: No rashes. MUSCULOSKELETAL: No joint effusion. NEUROLOGIC: No change in exam. MEDICATIONS: Reviewed. LABORATORY DATA: From 10/06/2018 and 10/03/2018 were reviewed. ASSESSMENT AND PLAN: 1. End-stage renal disease. The patient is scheduled for dialysis today. We will dialyze for 3 yvonne rs 2k bath, calcium 2.5. 2. Volume overload, improved. Continue ultrafiltration with dialysis. 3. Anemia. Continue to monitor hemoglobin and hematocrit levels. Continue Epogen. 4. Mineral bone disorder. Continue to monitor calcium and phosphorus levels. 5. Hypertension. Continue current blood pressure regimen. 6. Coronary artery disease. Continue medical management. 7. Hypothyroidism. Continue Synthroid. 8. History of lupus. 9. History of bipolar disorder. Dictated By: ELIZABETH RODRIGES DO NR/NTS Conf#: [id number] DID#: [id number] CC: DANAY SOLER MD;*EndCC*
[2018-10-07] MEDS: DIVALPROEX (EC) 500 MG TAB PO SCH ×2 (09:11→20:41)
[2018-10-07] MEDS: ASPIRIN 81 MG TAB PO SCH (09:11)
[2018-10-07] MEDS: SEVELAMER CARBONATE 800 MG TABLET PO SCH ×3 (09:11→17:40)
[2018-10-07] MEDS: ESCITALOPRAM 10 MG TAB PO SCH (09:11)
[2018-10-07] MEDS: MULTIVIT/CA CARB/B CMPLX/FA TAB PO SCH (09:11)
[2018-10-07] MEDS: LABETALOL 200 MG TAB PO SCH ×2 (09:12→20:44)
[2018-10-07] MEDS: HEPARIN 1000 UNITS/ML 10 ML INJ CATHETER SCH (13:18)
--- NOTE | 2018-10-07 14:09 | PN ---
DATE: 10/06/2018 SUBJECTIVE: Follow up on fluid overload, hypertension, hypothyroidism, bipolar disorder, homelessnes s. The patient denied any chest pain or shortness of breath. No reported fever or chills. No repor rajeev bleeding from any site. No reported agitation. PHYSICAL EXAMINATION: GENERAL: Revealed the patient to be awake, alert. VITAL SIGNS: Temperature 97.7, pulse 65, respirations 17, blood pressure 120/58, O2 saturation 96% o n room air. HEENT: No eye discharge or redness. Conjunctivae and lids are normal. Oropharynx is clear. NECK: No mass. CHEST: Fairly clear. CARDIOVASCULAR: S1, S2, normal. ABDOMEN: Soft, nondistended, nontender. EXTREMITIES: No edema. NEUROLOGIC: The patient is awake, alert, fairly oriented with no gross focal deficit. LABORATORY DATA: Done on 10/06/2018: WBC 5, hemoglobin 9.1, platelet 194. IMPRESSION: 1. Volume overload, improved. Continue with ultrafiltration with the hemodialysis as per nephrology . 2. Hypertension. 3. Coronary artery disease. 4. Bipolar disorder. 5. Hypothyroidism. MEDICATIONS: List reviewed. CONDITION: The patient is clinically stable. DISPOSITION: Pending placement at intermediate facility and also arranging outpatient hemodialysi s. Dictated By: DANAY CORLEY/CHANEL Conf#: [id number] DID#: [id number]
--- NOTE | 2018-10-07 17:21 | PN ---
Date/Time of Note Date/Time of Note DATE: 10/07/18 TIME: 17:20 Assessment/Plan VTE Prophylaxis Risk score (from Ns)>0 risk: 5 SCD applied (from Ns): Yes Pharmacological prophylaxis: heparin Lines/Catheters IV Catheter Type (from Nrs): Saline Lock Urinary Cath still in place: No Assessment/Plan Hospital Course Patient remains hemodynamically stable, afebrile. Patient is cleared from infectious disease standpoint for discharge to long term facility. Pending arrangement and insurance approval. Assessment/Plan -Fluid volume overload due to missed hemodialysis, resolved. Continue hemodialysis. Dr. Rojas is following in nephrology consultation. -Shortness of breath in patient with history of coronary artery disease and stent placement, rule out acute coronary syndrome, cardiac enzymes are negative x3. -Preserved ejection fraction per recent echo. Dr. Bashir is following in cardiology consultation. -Hypertension -Hypothyroidism -Bipolar disorder -History of lupus -Homelessness, DC planning to long term facility. Further recommendations based on clinical course. Plan of care discussed with Dr. Holm. Result Diagram: 10/06/18 0638 10/03/18 0738 Exam/Review of Systems Exam Vitals Vital Signs Date Temp Pulse Resp B/P (MAP) Pulse Ox O2 O2 Flow FiO2 Time Delivery Rate 10/07/18 98.4 69 19 121/90 96 14:06 (100) 10/07/18 Room Air 10:00 Intake and Output 10/06/18 10/06/18 10/07/18 1414:59 22:59 06:59 IntakeIntake Total 600 ml 240 ml 520 ml BalanceBalance 600 ml 240 ml 520 ml Exam Constitutional: alert, oriented Respiratory: clear Cardiovascular: regular rate and rhythm Gastrointestinal: soft, non-tender Extremities: normal pulses, other (Left upper extremity AV fistula) Additional Comments Right chest permacath Medications Medication Current Medications Acetaminophen (Tylenol Tab) 650 mg Q6H PRN PO MILD PAIN(1-3)OR ELEVATED TEMP; Start 09/25/18 at 02:30 Ondansetron HCl (Zofran Inj) 4 mg Q6H PRN IV NAUSEA AND/OR VOMITING; Start 09/25/18 at 02:30 Quetiapine Fumarate (Seroquel) 100 mg HS PO Last administered on 10/06/18at 20:20; Admin Dose 100 MG; Start 09/25/18 at 02:30 Alprazolam (Xanax) 1 mg Q12 PRN PO ANXIETY Last administered on 10/05/18 20:18; Admin Dose 1 MG; Start 09/25/18 at 09:30 Atorvastatin Calcium (Lipitor) 40 mg QHS PO Last administered on 10/06/18 20:20; Admin Dose 40 MG; Start 09/25/18 at 21:00 Divalproex Sodium (Depakote) 500 mg BID PO Last administered on 10/07/18 09:11; Admin Dose 500 MG; Start 09/25/18 at 21:00 Escitalopram Oxalate (Lexapro) 5 mg DAILY PO Last administered on 10/07/18 09 :11; Admin Dose 5 MG; Start 09/26/18 at 09:00 Hydralazine HCl (Apresoline) 25 mg Q6 PRN PO sbp>150; Start 09/25/18 at 09:30 Labetalol HCl (Normodyne) 200 mg BID PO Last administered on 10/07/18 09:12; Admin Dose 200 MG; Start 09/25/18 at 21:00 Epoetin Rickey-epbx (RETACRIT(esrd)) 10,000 unit MoWeFr@1700 SC Last administered on 10/04/18 16:15; Admin Dose 10,000 UNIT; Start 09/25/18 at 17:00 Aspirin (Aspirin) 81 mg DAILY PO Last administered on 10/07/18 09:11; Admin Dose 81 MG; Start 09/26/18 at 09:00 Heparin Sodium (Porcine) (Heparin (1000 Units/ml)) 3,500 unit AFTER DIALYSIS CATHETER Last administered on 10/07/18 13:18; Admin Dose 3,500 UNIT; Start 09/26/18 at 00:00 Levothyroxine Sodium (Synthroid) 250 mcg DAILY@06 PO Last administered on 10/07/18 05:40; Admin Dose 250 MCG; Start 09/27/18 at 06:00 Morphine Sulfate (morphine) 6 mg Q4H PRN PO SEVERE PAIN LEVEL 7-10; Start 09/27/18 at 17:30 Albumin Human 100 ml @ 100 mls/hr WITH DIALYSIS PRN IV SBP <90 DURING DIALYSIS Last administered on 10/01/18 09:57; Admin Dose 100 MLS/HR; Start 10/01/18 at 07:30 Multivit/Ca Carb/ B Cmplx/FA/Prenat (Leah-Jerod) 1 tab DAILY PO Last administered on 10/07/18at 09:11; Admin Dose 1 TAB; Start 10/05/18 at 09:00 Sevelamer Carbonate (Renvela) 800 mg WITH MEALS PO Last administered on 10/07/18at 14:43; Admin Dose 800 MG; Start 10/05/18 at 11:50 YELENA HARDEN Oct 07, 2018 17:21
[2018-10-07] MEDS: EPOETIN ALFA-EPBX (ESRD) 10,000 UNIT/ML VIAL SC SCH (17:42)
[2018-10-07] MEDS: ALPRAZOLAM 0.5 MG TAB PO PRN (18:05)
[2018-10-07] MEDS: QUETIAPINE 100 MG TAB PO SCH (20:41)
[2018-10-07] MEDS: ATORVASTATIN 40 MG TAB PO SCH (20:41)
[2018-10-08 03:31] VITALS: BP 145/77; PULSE 65; RESP 18
[2018-10-08] MEDS: LEVOTHYROXINE 125 MCG TAB PO SCH (06:38)
[2018-10-08 07:58] VITALS: BP 102/57; PULSE 63; RESP 18
[2018-10-08] MEDS: DIVALPROEX (EC) 500 MG TAB PO SCH ×2 (08:50→21:02)
[2018-10-08] MEDS: ESCITALOPRAM 10 MG TAB PO SCH (08:50)
[2018-10-08] MEDS: SEVELAMER CARBONATE 800 MG TABLET PO SCH ×3 (08:50→17:19)
[2018-10-08] MEDS: MULTIVIT/CA CARB/B CMPLX/FA TAB PO SCH (08:50)
[2018-10-08] MEDS: ASPIRIN 81 MG TAB PO SCH (08:50)
[2018-10-08] MEDS: LABETALOL 200 MG TAB PO SCH ×2 (08:51→21:00)
[2018-10-08] MEDS ORDERED: HYDROCODONE/APAP (5/325) TAB PO PRN (12:30)
[2018-10-08 14:57] VITALS: BP 109/60; PULSE 66; RESP 18
--- NOTE | 2018-10-08 17:30 | CONS ---
Assessment/Plan Assessment/Plan Hospital Course (Demo Recall) SOB-resolved Preserved left ventricular ejection fraction ESRD on HD-intermittent compliance CAD Psych D/O Poor medical compliance History of meth and cocaine use -Patient admits poor compliance with hemodialysis -Shortness of breath is better after hemodialysis -Fluid management via HD as per renal -Continue aspirin and statin therapy, beta-la as tolerated -DC planning Consultation Date/Type/Reason Admit Date/Time Sep 24, 2018 at 23:55 Initial Consult Date Type of Consult Cardiology Date/Time of Note DATE: 10/08/18 TIME: 17:29 24 HR Interval Summary Free Text/Dictation No shortness of breath, chest pain or palpitations Exam/Review of Systems Vital Signs Vitals Vital Signs Date Temp Pulse Resp B/P (MAP) Pulse Ox O2 O2 Flow FiO2 Time Delivery Rate 10/08/18 98.3 66 18 109/60 96 Room Air 14:57 (76) Intake and Output 10/07/18 10/07/18 10/08/18 1515:00 23:00 07:00 IntakeIntake Total 240 ml 240 ml OutputOutput Total 1600 ml BalanceBalance -1360 ml 240 ml Exam Constitutional: alert, oriented (No apparent distress) Head: normocephalic Respiratory: other (Coarse breath sounds bilaterally, no wheezing) Cardiovascular: regular rate and rhythm (S1-S2 heard) Gastrointestinal: soft, non-tender, bowel sounds Extremities: other (No significant edema) Labs Result Diagram: 10/06/18 0638 Results 24hrs Laboratory Tests Test 10/08/18 17:07 Hepatitis B Surface Antigen Pending Hepatitis B Core Total Antibody Pending Hepatitis C Antibody Pending Medications Medications Current Medications Acetaminophen (Tylenol Tab) 650 mg Q6H PRN PO MILD PAIN(1-3)OR ELEVATED TEMP; Start 09/25/18 at 02:30 Ondansetron HCl (Zofran Inj) 4 mg Q6H PRN IV NAUSEA AND/OR VOMITING; Start 09/25/18 at 02:30 Quetiapine Fumarate (Seroquel) 100 mg HS PO Last administered on 10/07/18at 20:41; Admin Dose 100 MG; Start 09/25/18 at 02:30 Atorvastatin Calcium (Lipitor) 40 mg QHS PO Last administered on 10/07/18at 20:41; Admin Dose 40 MG; Start 09/25/18 at 21:00 Divalproex Sodium (Depakote) 500 mg BID PO Last administered on 10/08/18 08:50; Admin Dose 500 MG; Start 09/25/18 at 21:00 Escitalopram Oxalate (Lexapro) 5 mg DAILY PO Last administered on 10/08/18 08:50; Admin Dose 5 MG; Start 09/26/18 at 09:00 Hydralazine HCl (Apresoline) 25 mg Q6 PRN PO sbp>150; Start 09/25/18 at 09:30 Labetalol HCl (Normodyne) 200 mg BID PO Last administered on 10/07/18 20:44; Admin Dose 200 MG; Start 09/25/18 at 21:00 Epoetin Rickey-epbx (RETACRIT(esrd)) 10,000 unit MoWeFr@1700 SC Last administered on 10/07/18 17:42; Admin Dose 10,000 UNIT; Start 09/25/18 at 17:00 Aspirin (Aspirin) 81 mg DAILY PO Last administered on 10/08/18 08:50; Admin Dose 81 MG; Start 09/26/18 at 09:00 Heparin Sodium (Porcine) (Heparin (1000 Units/ml)) 3,500 unit AFTER DIALYSIS CATHETER Last administered on 10/07/18 13:18; Admin Dose 3,500 UNIT; Start 09/26/18 at 00:00 Levothyroxine Sodium (Synthroid) 250 mcg DAILY@06 PO Last administered on 10/08/18 06:38; Admin Dose 250 MCG; Start 09/27/18 at 06:00 Morphine Sulfate (morphine) 6 mg Q4H PRN PO SEVERE PAIN LEVEL 7-10; Start 09/27/18 at 17:30 Albumin Human 100 ml @ 100 mls/hr WITH DIALYSIS PRN IV SBP <90 DURING DIALYSIS Last administered on 10/01/18 09:57; Admin Dose 100 MLS/HR; Start 10/01/18 at 07:30 Multivit/Ca Carb/ B Cmplx/FA/Prenat (Leah-Jerod) 1 tab DAILY PO Last administered on 10/08/18 08:50; Admin Dose 1 TAB; Start 10/05/18 at 09:00 Sevelamer Carbonate (Renvela) 800 mg WITH MEALS PO Last administered on 4/16/19at 17:19; Admin Dose 800 MG; Start 10/05/18 at 11:50 Alprazolam (Xanax) 1 mg Q12 PRN PO ANXIETY Last administered on 10/07/18at 18:05; Admin Dose 1 MG; Start 10/07/18 at 18:00 Acetaminophen/ Hydrocodone Bitart ([place] (5/325)) 1 tab Q6H PRN PO pain; Start 10/08/18 at 12:30 Denny Bashir DO Oct 08, 2018 17:30
--- NOTE | 2018-10-08 18:21 | PN ---
Date/Time of Note Date/Time of Note DATE: 10/08/18 TIME: 18:17 Assessment/Plan VTE Prophylaxis Risk score (from Nsg)>0 risk: 5 SCD applied (from Nsg): Yes Pharmacological prophylaxis: heparin Lines/Catheters IV Catheter Type (from Nrsg): Saline Lock Urinary Cath still in place: No Assessment/Plan Hospital Course Patient remains hemodynamically stable, afebrile. Patient was cleared for DC since September 30, pending arrangement by case management for long-term facility placement with transfer to hemodialysis. Chest x-ray with no radiographic evidence of active tuberculosis. Assessment/Plan -Fluid volume overload due to missed hemodialysis, resolved. Continue hemodialysis. Dr. Rojas is following in nephrology consultation. -Shortness of breath in patient with history of coronary artery disease and stent placement, rule out acute coronary syndrome, cardiac enzymes are negative x3. -Preserved ejection fraction per recent echo. Dr. Bashir is following in cardiology consultation. -Hypertension -Hypothyroidism -Bipolar disorder -History of lupus -Homelessness, DC planning to long-term facility. Further recommendations based on clinical course. Plan of care discussed with Dr. Holm. Result Diagram: 10/06/18 0638 Results 24hrs Laboratory Tests Test 10/08/18 17:07 Hepatitis B Surface Antigen Pending Hepatitis B Core Total Antibody Pending Hepatitis C Antibody Pending Exam/Review of Systems Exam Vitals Vital Signs Date Temp Pulse Resp B/P (MAP) Pulse Ox O2 O2 Flow FiO2 Time Delivery Rate 10/08/18 98.3 66 18 109/60 96 Room Air 14:57 (76) Intake and Output 10/07/18 10/07/18 10/08/18 1515:00 23:00 07:00 IntakeIntake Total 240 ml 240 ml OutputOutput Total 1600 ml BalanceBalance -1360 ml 240 ml Exam Constitutional: alert, oriented Respiratory: clear Cardiovascular: regular rate and rhythm Gastrointestinal: soft, non-tender Extremities: normal pulses, other (Left upper extremity AV fistula) Additional Comments Right chest permacath Results Results 24hrs Laboratory Tests Test 10/08/18 17:07 Hepatitis B Surface Antigen Pending Hepatitis B Core Total Antibody Pending Hepatitis C Antibody Pending Medications Medication Current Medications Acetaminophen (Tylenol Tab) 650 mg Q6H PRN PO MILD PAIN(1-3)OR ELEVATED TEMP; Start 09/25/18 at 02:30 Ondansetron HCl (Zofran Inj) 4 mg Q6H PRN IV NAUSEA AND/OR VOMITING; Start 09/25/18 at 02:30 Quetiapine Fumarate (Seroquel) 100 mg HS PO Last administered on 10/07/18 20:41; Admin Dose 100 MG; Start 09/25/18 at 02:30 Atorvastatin Calcium (Lipitor) 40 mg QHS PO Last administered on 10/07/18 20:41; Admin Dose 40 MG; Start 09/25/18 at 21:00 Divalproex Sodium (Depakote) 500 mg BID PO Last administered on 10/08/18 08:50; Admin Dose 500 MG; Start 09/25/18 at 21:00 Escitalopram Oxalate (Lexapro) 5 mg DAILY PO Last administered on 10/08/18 08:50; Admin Dose 5 MG; Start 09/26/18 at 09:00 Hydralazine HCl (Apresoline) 25 mg Q6 PRN PO sbp>150; Start 09/25/18 at 09:30 Labetalol HCl (Normodyne) 200 mg BID PO Last administered on 10/07/18 20:44; Admin Dose 200 MG; Start 09/25/18 at 21:00 Epoetin Rickey-epbx (RETACRIT(esrd)) 10,000 unit MoWeFr@1700 SC Last administered on 10/07/18 17:42; Admin Dose 10,000 UNIT; Start 09/25/18 at 17:00 Aspirin (Aspirin) 81 mg DAILY PO Last administered on 10/08/18 08:50; Admin Dose 81 MG; Start 09/26/18 at 09:00 Heparin Sodium (Porcine) (Heparin (1000 Units/ml)) 3,500 unit AFTER DIALYSIS CATHETER Last administered on 10/07/18 13:18; Admin Dose 3,500 UNIT; Start 09/26/18 at 00:00 Levothyroxine Sodium (Synthroid) 250 mcg DAILY@06 PO Last administered on 10/08/18 06:38; Admin Dose 250 MCG; Start 09/27/18 at 06:00 Morphine Sulfate (morphine) 6 mg Q4H PRN PO SEVERE PAIN LEVEL 7-10; Start 09/27/18 at 17:30 Albumin Human 100 ml @ 100 mls/hr WITH DIALYSIS PRN IV SBP <90 DURING DIALYSIS Last administered on 10/01/18 09:57; Admin Dose 100 MLS/HR; Start 10/01/18 at 07:30 Multivit/Ca Carb/ B Cmplx/FA/Prenat (Leah-Jerod) 1 tab DAILY PO Last administered on 10/08/18 08:50; Admin Dose 1 TAB; Start 10/05/18 at 09:00 Sevelamer Carbonate (Renvela) 800 mg WITH MEALS PO Last administered on 10/08/18at 17:19; Admin Dose 800 MG; Start 10/05/18 at 11:50 Alprazolam (Xanax) 1 mg Q12 PRN PO ANXIETY Last administered on 10/07/18 18:05; Admin Dose 1 MG; Start 10/07/18 at 18:00 Acetaminophen/ Hydrocodone Bitart ([place] (5/325)) 1 tab Q6H PRN PO pain; Start 10/08/18 at 12:30 YELENA HARDEN Oct 08, 2018 18:21
[2018-10-08 19:45] VITALS: BP 111/60; PULSE 67; RESP 18
[2018-10-08] MEDS: ATORVASTATIN 40 MG TAB PO SCH (21:02)
[2018-10-08] MEDS: QUETIAPINE 100 MG TAB PO SCH (21:02)
[2018-10-09] VITALS (19 sets, daily range): BP systolic 105–158; BP diastolic 57–89; PULSE 60–73; RESP 18–20
[2018-10-09] MEDS: LEVOTHYROXINE 125 MCG TAB PO SCH (05:53)
--- NOTE | 2018-10-09 06:57 | PN ---
DATE: 10/08/2018 SUBJECTIVE: The patient is stable, no events overnight. No fevers, chills, nausea, vomiting. OBJECTIVE: VITAL SIGNS: Blood pressure is 102/57, respirations 18, pulse 62, temperature 98.5. HEENT: Head is normocephalic. NECK: Supple. HEART: Regular rate. LUNGS: Show diminished breath sounds at the base. ABDOMEN: Soft, nontender to palpation without rebound or guarding. EXTREMITIES: Negative for clubbing, cyanosis. No edema. DERMATOLOGIC: No rashes. MUSCULOSKELETAL: No joint effusion. NEUROLOGIC: No change in exam. MEDICATIONS: Have been reviewed. LABORATORY DATA: Was reviewed. ASSESSMENT AND PLAN: 1. End-stage renal disease. The patient had hemodialysis yesterday, tolerated it well. Plan for di alysis tomorrow. 2. Volume overload, improving. Continue ultrafiltration with hemodialysis. 3. Anemia. Continue to monitor hemoglobin and hematocrit levels. Continue Epogen. 4. Mineral bone disorder, monitor calcium and phosphorus levels. 5. Hypertension. Continue current blood pressure regimen. 6. Coronary artery disease. Continue medical management. 7. Hypothyroidism. Continue Synthroid. 8. History of lupus. 9. History of bipolar disorder. Dictated By: ELIZABETH RODRIGES DO NR/NTS Conf#: [id number] DID#: [id number] CC: DANAY SOLER MD;*EndCC*
[2018-10-09] MEDS: LABETALOL 200 MG TAB PO SCH ×2 (09:00→20:38)
--- NOTE | 2018-10-09 09:04 | PN ---
DATE: 10/09/2018 SUBJECTIVE: The patient is stable. No events overnight. No fevers, chills, nausea, or vomiting. OBJECTIVE: VITAL SIGNS: Blood pressure is 101/57, pulse 67, respirations 18, temperature 98.3. HEENT: Head is normocephalic. NECK: Supple. HEART: Regular rate. LUNGS: Show diminished breath sounds at the base. ABDOMEN: Soft, nontender to palpation without rebound or guarding. EXTREMITIES: Negative for clubbing, cyanosis, no edema. DERMATOLOGIC: No rashes. MUSCULOSKELETAL: No joint effusion. NEUROLOGIC: No change in exam. MEDICATIONS: Reviewed. LABORATORY DATA: Reviewed. ASSESSMENT AND PLAN: 1. End-stage renal disease. The patient has dialysis today. We will dialyze for 3 hours 2k bath, c alcium 2.5. 2. Volume overload, improving. Continue ultrafiltration with dialysis. 3. Anemia. Continue to monitor hemoglobin and hematocrit levels. Continue Epogen. 4. Mineral bone disorder, monitor calcium and phosphorus levels. 5. Hypertension. Continue current blood pressure regimen. 6. Coronary artery disease. Continue medical management. 7. Hypothyroidism. Continue Synthroid. 8. History of lupus. 9. History of bipolar disorder. Dictated By: ELIZABETH RODRIGES DO NR/NTS Conf#: [id number] DID#: [id number] CC: DANAY SOLER MD;*EndCC*
[2018-10-09] MEDS: DIVALPROEX (EC) 500 MG TAB PO SCH ×2 (09:09→20:46)
[2018-10-09] MEDS: ASPIRIN 81 MG TAB PO SCH (09:09)
[2018-10-09] MEDS: SEVELAMER CARBONATE 800 MG TABLET PO SCH ×3 (09:09→18:04)
[2018-10-09] MEDS: MULTIVIT/CA CARB/B CMPLX/FA TAB PO SCH (09:10)
[2018-10-09] MEDS: ESCITALOPRAM 10 MG TAB PO SCH (09:10)
--- NOTE | 2018-10-09 12:46 | CONS ---
Assessment/Plan Assessment/Plan Hospital Course (Demo Recall) SOB-resolved Preserved left ventricular ejection fraction ESRD on HD-intermittent compliance CAD Psych D/O Poor medical compliance History of meth and cocaine use -Patient admits poor compliance with hemodialysis prior to admission -Shortness of breath is better after hemodialysis -Fluid management via HD as per renal -Continue aspirin and statin therapy, beta-la as tolerated -DC planning Consultation Date/Type/Reason Admit Date/Time Sep 24, 2018 at 23:55 Initial Consult Date Type of Consult Cardiology Date/Time of Note DATE: 10/09/18 TIME: 12:45 24 HR Interval Summary Free Text/Dictation No shortness of breath, palpitations or chest pain Exam/Review of Systems Vital Signs Vitals Vital Signs Date Temp Pulse Resp B/P (MAP) Pulse Ox O2 O2 Flow FiO2 Time Delivery Rate 10/09/18 98.3 67 18 111/57 08:11 (75) 10/09/18 96 01:57 10/08/18 Room Air 14:57 Intake and Output 10/08/18 10/08/18 10/09/18 1515:00 23:00 07:00 IntakeIntake Total 520 ml 750 ml BalanceBalance 520 ml 750 ml Exam Constitutional: alert, oriented (No apparent distress) Head: normocephalic Respiratory: other (Coarse breath sounds bilaterally, no wheezing) Cardiovascular: regular rate and rhythm (S1-S2 heard) Gastrointestinal: soft, non-tender, bowel sounds Extremities: other (No significant edema) Labs Result Diagram: 10/06/18 0638 10/09/18 0612 Results 24hrs Laboratory Tests Test 10/08/18 17:07 10/09/18 06:12 Hepatitis B Surface Antigen NEGATIVE Hepatitis B Core Total Antibody NEGATIVE Hepatitis C Antibody NEGATIVE Sodium Level 140 Potassium Level 3.7 Chloride Level 102 Carbon Dioxide Level 26 Anion Gap 12 Blood Urea Nitrogen 45 H Creatinine 3.06 H Est Glomerular Filtrat Rate mL/min 16 L Glucose Level 81 Calcium Level 8.6 Medications Medications Current Medications Acetaminophen (Tylenol Tab) 650 mg Q6H PRN PO MILD PAIN(1-3)OR ELEVATED TEMP; Start 09/25/18 at 02:30 Ondansetron HCl (Zofran Inj) 4 mg Q6H PRN IV NAUSEA AND/OR VOMITING; Start 09/25/18 at 02:30 Quetiapine Fumarate (Seroquel) 100 mg HS PO Last administered on 10/08/18 21:02; Admin Dose 100 MG; Start 09/25/18 at 02:30 Atorvastatin Calcium (Lipitor) 40 mg QHS PO Last administered on 10/08/18 21:02; Admin Dose 40 MG; Start 09/25/18 at 21:00 Divalproex Sodium (Depakote) 500 mg BID PO Last administered on 10/09/18 09:09; Admin Dose 500 MG; Start 09/25/18 at 21:00 Escitalopram Oxalate (Lexapro) 5 mg DAILY PO Last administered on 10/09/18 09:10; Admin Dose 5 MG; Start 09/26/18 at 09:00 Hydralazine HCl (Apresoline) 25 mg Q6 PRN PO sbp>150; Start 09/25/18 at 09:30 Labetalol HCl (Normodyne) 200 mg BID PO Last administered on 10/07/18 20:44; Admin Dose 200 MG; Start 09/25/18 at 21:00 Epoetin Rickey-epbx (RETACRIT(esrd)) 10,000 unit MoWeFr@1700 SC Last administered on 10/07/18 17:42; Admin Dose 10,000 UNIT; Start 09/25/18 at 17:00 Aspirin (Aspirin) 81 mg DAILY PO Last administered on 10/09/18 09:09; Admin Dose 81 MG; Start 09/26/18 at 09:00 Heparin Sodium (Porcine) (Heparin (1000 Units/ml)) 3,500 unit AFTER DIALYSIS CATHETER Last administered on 10/07/18 13:18; Admin Dose 3,500 UNIT; Start 09/26/18 at 00:00 Levothyroxine Sodium (Synthroid) 250 mcg DAILY@06 PO Last administered on 10/09/18 05:53; Admin Dose 250 MCG; Start 09/27/18 at 06:00 Morphine Sulfate (morphine) 6 mg Q4H PRN PO SEVERE PAIN LEVEL 7-10; Start 09/27/18 at 17:30 Albumin Human 100 ml @ 100 mls/hr WITH DIALYSIS PRN IV SBP <90 DURING DIALYSIS Last administered on 10/01/18 09:57; Admin Dose 100 MLS/HR; Start 10/01/18 at 07:30 Multivit/Ca Carb/ B Cmplx/FA/Prenat (Leah-Jerod) 1 tab DAILY PO Last administered on 10/09/18at 09:10; Admin Dose 1 TAB; Start 10/05/18 at 09:00 Sevelamer Carbonate (Renvela) 800 mg WITH MEALS PO Last administered on 10/09/18at 12:12; Admin Dose 800 MG; Start 10/05/18 at 11:50 Alprazolam (Xanax) 1 mg Q12 PRN PO ANXIETY Last administered on 10/07/18at 18:05; Admin Dose 1 MG; Start 10/07/18 at 18:00 Acetaminophen/ Hydrocodone Bitart (Crescent (5/325)) 1 tab Q6H PRN PO pain; Start 10/08/18 at 12:30 Denny Bashir DO Oct 09, 2018 12:46
[2018-10-09] MEDS: HEPARIN 1000 UNITS/ML 10 ML INJ CATHETER SCH (19:47)
[2018-10-09] MEDS: ATORVASTATIN 40 MG TAB PO SCH (20:46)
[2018-10-09] MEDS: EPOETIN ALFA-EPBX (ESRD) 10,000 UNIT/ML VIAL SC SCH (20:46)
[2018-10-09] MEDS: QUETIAPINE 100 MG TAB PO SCH (20:46)
[2018-10-09] MEDS: ALPRAZOLAM 0.5 MG TAB PO PRN (20:49)
--- NOTE | 2018-10-09 22:27 | DS ---
Date/Time of Note Date/Time of Note DATE: 10/09/18 TIME: 22:24 Discharge Summary Admission/Discharge Info Admit Date/Time Sep 24, 2018 at 23:55 Discharge Date/Time Patient Condition: Stable Hx of Present Illness The patient is a 57-year-old female with extensive medical history including history of stroke, coronary artery disease status post stent placement 10 years ago, hypothyroidism, lupus, bipolar disorder and anxiety. Patient with hemodialysis dependent end-stage renal disease goes to [facility]. Patient stated that she missed her hemodialysis on Sunday. Patient presented to the emergency room with complaints of shortness of breath and dizziness. Patient denies any fevers denies chills denies chest pain denies nausea vomiting diarrhea. X-ray revealed pulmonary vascular congestion/volume overload. Patient is admitted for further evaluation and management. Hospital Course -Fluid volume overload due to missed hemodialysis, resolved. Continue hemodi alysis. Dr. Rojas is following in nephrology consultation. -Shortness of breath in patient with history of coronary artery disease and stent placement, rule out acute coronary syndrome, cardiac enzymes are negative x3. -Preserved ejection fraction per recent echo. Dr. Bashir is following in cardiology consultation. -Hypertension -Hypothyroidism -Bipolar disorder -History of lupus -Homelessness, DC planning to half-way facility. Plan of care discussed with Dr. Holm. Home Meds Reported Medications Atorvastatin* (Atorvastatin*) 40 Mg Tablet, 40 MG PO QHS, #30 TAB 09/25/18 Furosemide* (Lasix*) 80 Mg Tablet, 80 MG PO DAILY, TAB 09/25/18 Alprazolam* (Xanax*) 1 Mg Tab, 1 MG PO Q12 PRN for ANXIETY, TAB 09/25/18 Amlodipine Besylate* (Amlodipine Besylate*) 10 Mg Tablet, 10 MG PO DAILY, #30 TAB 09/25/18 Levothyroxine Sodium* (Synthroid*) 200 Mcg Tablet, 260 MCG PO BEFORE BREAKFAST, #30 TAB 09/25/18 Levothyroxine Sodium* (Synthroid*) 200 Mcg Tablet, 200 MCG PO BEFORE BREAKFAST, #30 TAB 09/25/18 Hydralazine Hcl* (Hydralazine Hcl*) 25 Mg Tab, 25 MG PO TID, #120 TAB 09/25/18 Divalproex Sodium* (Depakote*) 500 Mg Tablet.dr, 500 MG PO BID, #90 TAB 09/25/18 Isosorbide Mononitrate (Isosorbide Mononitrate) 20 Mg Tablet, 60 MG PO DAILY, TAB 09/25/18 Escitalopram Oxalate* (Lexapro*) 5 Mg Tablet, 5 MG PO DAILY, #30 TAB 09/25/18 Cephalexin* (Cephalexin*) 500 Mg Capsule 01/24/10 Labetalol Hcl* (Labetalol Hcl*) 200 Mg Tablet 01/24/10 Benazepril Hcl* (Benazepril Hcl*) 20 Mg Tablet 01/24/10 Levothyroxine Sodium (Levothroid) 50 Mcg Tablet 01/24/10 Tramadol HCl (Tramadol HCl) 50 Mg Tablet, 50 MG PO Q6 PRN for PAIN LEVEL 6-10 01/24/10 Hydroxychloroquine Sulfate* (Hydroxychloroquine Sulfate*) 200 Mg Tablet, 200 MG PO DAILY 01/24/10 Triamterene-HCTZ (Triamterene-HCTZ) 1 Cap Capsule 01/24/10 Levothyroxine Sodium (Levothroid) 100 Mcg Tablet 01/24/10 Follow-up Plan Discharge to [facility] after hemodialysis today, with arrangement for hemodialysis at [facility] 3 times per week. Primary Care Provider Care Physician No Primary Time spent on discharge: > 30 minutes Pending Labs Laboratory Tests Test 10/09/18 06:12 Sodium Level 140 mmol/L (135-144) Potassium Level 3.7 mmol/L (3.5-5.1) Chloride Level 102 mmol/L (97-110) Carbon Dioxide Level 26 mmol/L (21-31) Anion Gap 12 (5-13) Blood Urea Nitrogen 45 mg/dl (7-20) Creatinine 3.06 mg/dl (0.44-1.00) Est Glomerular Filtrat Rate mL/min 16 mL/min (>60) Glucose Level 81 mg/dl (70-220) Calcium Level 8.6 mg/dl (8.4-10.2) YELENA HARDEN Oct 09, 2018 22:27
== END 2018-10-09 22:40 | DRG 640 ==
LOC: E/R 20:57 → TEL 23:55 → PP2 10-06 07:30
PROVIDERS: ADMIT Internal Medicine; ATTEND Internal Medicine
PROC: 5A1D70Z Performance of Urinary Filtration, Intermittent, Less than 6 Hours Per Day (ICD-10-PCS; principal; 2018-09-25)
DX: E87.79 Other fluid overload (principal); N18.6 End stage renal disease; I12.0 Hypertensive chronic kidney disease with stage 5 chronic kidney disease or end stage renal disease; I25.10 Atherosclerotic heart disease of native coronary artery without angina pectoris; E03.9 Hypothyroidism, unspecified; F31.9 Bipolar disorder, unspecified; F17.200 Nicotine dependence, unspecified, uncomplicated; D63.1 Anemia in chronic kidney disease; F41.9 Anxiety disorder, unspecified; M32.9 Systemic lupus erythematosus, unspecified; Z95.5 Presence of coronary angioplasty implant and graft; Z86.73 Personal history of transient ischemic attack (TIA), and cerebral infarction without residual deficits; Z99.2 Dependence on renal dialysis; Z59.0 Homelessness; Z91.15 Patient's noncompliance with renal dialysis
CPT/HCPCS: 36415; 71045; 80048; 80053; 80307; 82550; 82553; 83735; 83880; 84100; 84443; 84484; 85014; 85018; 85025; 86704; 86709; 86803; 87340; 90935; 93005; 93306; 97116; 97162; 97530; J1644; P9047; Q5105

== ENCOUNTER 2018-11-11 14:42 | Emergency (ER) | payer MEDICARE, OTHER ==
[~2018-11-11] VITALS: Ht 167.6 cm; Wt 91.2 kg
[~2018-11-11 14:42] MED LIST changes: +ALPR1TAB2 PO; +AMLO-147 PO; +ATOR40TA68 PO; +DIVA-48 PO; +ESCI5TAB PO; +FURO80TA78 PO; +HYDR-3671 PO; +ISOS20TA3 PO; +SYN2 PO
[2018-11-11 14:46] VITALS: BP 166/72; PULSE 76; RESP 18; Ht 167.6 cm; Wt 91.2 kg
--- NOTE | 2018-11-21 12:21 | ERD ---
ER Documentation Chief Complaint Chief Complaint sent from dialysis centre for x ray hip and pelvis s/o fall today HPI 57-year-old female presents after a slip and fall leaving dialysis today. She was referred by her primary doctor for evaluation for hip and pelvis pain status post fall. She is able to ambulate at baseline with a walker. She denies any significant pain is uncertain why her doctor referred her to the emergency room as she has minimal discomfort. She has had injury, loss of consciousness, vomiting, weakness, deficits. ROS All systems reviewed and are negative except as per history of present illness. Medications Home Meds Reported Medications Atorvastatin* (Atorvastatin*) 40 Mg Tablet, 40 MG PO QHS, #30 TAB 09/25/18 Furosemide* (Lasix*) 80 Mg Tablet, 80 MG PO DAILY, TAB 09/25/18 Alprazolam* (Xanax*) 1 Mg Tab, 1 MG PO Q12 PRN for ANXIETY, TAB 09/25/18 Amlodipine Besylate* (Amlodipine Besylate*) 10 Mg Tablet, 10 MG PO DAILY, #30 TAB 09/25/18 Levothyroxine Sodium* (Synthroid*) 200 Mcg Tablet, 260 MCG PO BEFORE BREAKFAST, #30 TAB 09/25/18 Levothyroxine Sodium* (Synthroid*) 200 Mcg Tablet, 200 MCG PO BEFORE BREAKFAST, #30 TAB 09/25/18 Hydralazine Hcl* (Hydralazine Hcl*) 25 Mg Tab, 25 MG PO TID, #120 TAB 09/25/18 Divalproex Sodium* (Depakote*) 500 Mg Tablet.dr, 500 MG PO BID, #90 TAB 09/25/18 Isosorbide Mononitrate (Isosorbide Mononitrate) 20 Mg Tablet, 60 MG PO DAILY, TAB 09/25/18 Escitalopram Oxalate* (Lexapro*) 5 Mg Tablet, 5 MG PO DAILY, #30 TAB 09/25/18 Cephalexin* (Cephalexin*) 500 Mg Capsule 01/24/10 Labetalol Hcl* (Labetalol Hcl*) 200 Mg Tablet 01/24/10 Benazepril Hcl* (Benazepril Hcl*) 20 Mg Tablet 01/24/10 Levothyroxine Sodium (Levothroid) 50 Mcg Tablet 01/24/10 Tramadol HCl (Tramadol HCl) 50 Mg Tablet, 50 MG PO Q6 PRN for PAIN LEVEL 6-10 01/24/10 Hydroxychloroquine Sulfate* (Hydroxychloroquine Sulfate*) 200 Mg Tablet, 200 MG PO DAILY 01/24/10 Triamterene-HCTZ (Triamterene-HCTZ) 1 Cap Capsule 01/24/10 Levothyroxine Sodium (Levothroid) 100 Mcg Tablet 01/24/10 Allergies Allergies: Coded Allergies: Penicillins (Unverified Allergy, Intermediate, RASH , 01/30/10) Sertraline (Verified Allergy, Mild, 01/30/10) PMhx/Soc History of Surgery: No Anesthesia Reaction: No Hx Neurological Disorder: No Hx Respiratory Disorders: Yes (ASTHMA) Hx Cardiac Disorders: Yes (HTN, CHF, ANGIOSPLASTY) Hx Psychiatric Problems: Yes (BIPOLAR) Hx Miscellaneous Medical Probl: Yes (ESRD on HD,CHF,bipolar,lupus,CVA,CAD s/p stent 10 yrs ago) Hx Alcohol Use: Yes Hx Substance Use: No Hx Tobacco Use: No Physical Exam Physical Exam Const: No acute distress Head: Atraumatic Eyes: Normal Conjunctiva ENT: Normal External Ears, Nose and Mouth. Neck: Full range of motion. No meningismus. Resp: Clear to auscultation bilaterally Cardio: Regular rate and rhythm, no murmurs Abd: Soft, non tender, non distended. Normal bowel sounds Skin: No petechiae or rashes Back: No midline or flank tenderness Ext: No cyanosis, or edema Neur: Awake and alert Psych: Normal Mood and Affect Procedures/MDM X-ray Pelvis 1V Interpreted by me: Bones: No fracture Joints: No dislocation Foreign body: None impression-normal 1 view pelvis x-ray X-ray left hip 2V Interpreted by me: Bones: No fracture Joints: No dislocation Foreign body: None impression-normal left hip x-ray Patient presents with mild pelvis and left hip pain after mechanical fall today leaving dialysis. She has no signs of fracture, dislocation, signs or symptoms to suggest head injury, neck injury, deficits, additional complications. She will discharged home with primary care follow-up and return precautions. The patient was stable with no new complaints during the ER course. Clinically, there is no current evidence to suggest meningitis, sepsis, acute abdomen, pneumonia, stroke, acute coronary syndrome, pulmonary embolism, aortic dissection or any other emergent condition appearing to require further evaluation or hospitalization. Patient counseled regarding my diagnostic impression and care plan. Prior to discharge all questions answered. Pt agrees with treatment plan and understands strict return precautions. Pt is instructed to follow up with primary care provider within 24-48 hours. Precautionary instructions provided including instructions to return to the ER if not improving or for any worsening or changing symptoms or concerns. Disclaimer: Inadvertent spelling and grammatical errors are likely due to EHR/dictation software use and do not reflect on the overall quality of patient care. Also, please note that the electronic time recorded on this note does not necessarily reflect the actual time of the patient encounter. Departure Diagnosis: Primary Impression: Fall with no significant injury Condition: Stable Patient Instructions: Fall Prevention Referrals: NO PRIMARY,CARE PHYSICIAN (PCP) Additional Instructions: No fractures or dislocation seen on x-ray. See primary doctor for follow-up. R echeck otherwise for new or worsening symptoms. ANJEL MACK MD November 21, 2018 12:21
== END 2018-11-12 13:13 | disposition home or self-care (01) ==
LOC: E/R 14:42
DX: M25.552 Pain in left hip (principal); J45.909 Unspecified asthma, uncomplicated; I50.9 Heart failure, unspecified; I12.0 Hypertensive chronic kidney disease with stage 5 chronic kidney disease or end stage renal disease; N18.6 End stage renal disease; I25.10 Atherosclerotic heart disease of native coronary artery without angina pectoris; Z86.73 Personal history of transient ischemic attack (TIA), and cerebral infarction without residual deficits; Z99.2 Dependence on renal dialysis
CPT/HCPCS: 72170; 73520

== ENCOUNTER 2019-01-02 13:36 | Emergency (ER) | payer MEDICARE, MEDICAID ==
[~2019-01-02] VITALS: Ht 170.2 cm; Wt 91.0 kg
[2019-01-02 13:40] VITALS: Ht 170.2 cm; Wt 91.0 kg
[2019-01-02] MEDS ORDERED: LIDOCAINE 1% (MDV) 20 ML INJ ONE (15:46)
[2019-01-02] MEDS ORDERED: SOD CHLORIDE 0.9% 500 ML ONE ×2 (15:46→19:30)
[2019-01-02] MEDS ORDERED: LIDOCAINE 1%/EPI (1:100,000) (MDV) 20 ML ONE (15:51)
--- NOTE | 2019-01-03 08:03 | ERD ---
ER Documentation Chief Complaint Chief Complaint SENT BY PMD FOR DIALYSIS CATHETER REMOVAL FROM RIGHT ANTERIOR CHEST. HPI This is a 58-year-old female with a history of end-stage renal disease on hemodialysis every Sunday and Sunday. The patient has been utilizing her AV fistula in the left upper extremity for 1 month and presents to the emergency department today sent by her carpet floor layer apprentice Dr. Rojas for removal of her permacath in her right chest wall which has not been utilized for over 1 month. She said no fevers or shaking or chills. She denies any chest pain. ROS All systems reviewed and are negative except as per history of present illness. Medications Home Meds Reported Medications Atorvastatin* (Atorvastatin*) 40 Mg Tablet, 40 MG PO QHS, #30 TAB 09/25/18 Furosemide* (Lasix*) 80 Mg Tablet, 80 MG PO DAILY, TAB 09/25/18 Alprazolam* (Xanax*) 1 Mg Tab, 1 MG PO Q12 PRN for ANXIETY, TAB 09/25/18 Amlodipine Besylate* (Amlodipine Besylate*) 10 Mg Tablet, 10 MG PO DAILY, #30 TAB 09/25/18 Levothyroxine Sodium* (Synthroid*) 200 Mcg Tablet, 260 MCG PO BEFORE BREAKFAST, #30 TAB 09/25/18 Hydralazine Hcl* (Hydralazine Hcl*) 25 Mg Tab, 25 MG PO TID, #120 TAB 09/25/18 Divalproex Sodium* (Depakote*) 500 Mg Tablet.dr, 500 MG PO BID, #90 TAB 09/25/18 Isosorbide Mononitrate (Isosorbide Mononitrate) 20 Mg Tablet, 60 MG PO DAILY, TAB 09/25/18 Escitalopram Oxalate* (Lexapro*) 5 Mg Tablet, 5 MG PO DAILY, #30 TAB 09/25/18 Discontinued Reported Medications Levothyroxine Sodium* (Synthroid*) 200 Mcg Tablet, 200 MCG PO BEFORE BREAKFAST, #30 TAB 09/25/18 Cephalexin* (Cephalexin*) 500 Mg Capsule 01/24/10 Labetalol Hcl* (Labetalol Hcl*) 200 Mg Tablet 01/24/10 Benazepril Hcl* (Benazepril Hcl*) 20 Mg Tablet 01/24/10 Levothyroxine Sodium (Levothroid) 50 Mcg Tablet 01/24/10 Tramadol HCl (Tramadol HCl) 50 Mg Tablet, 50 MG PO Q6 PRN for PAIN LEVEL 6-10 01/24/10 Hydroxychloroquine Sulfate* (Hydroxychloroquine Sulfate*) 200 Mg Tablet, 200 MG PO DAILY 01/24/10 Triamterene-HCTZ (Triamterene-HCTZ) 1 Cap Capsule 01/24/10 Levothyroxine Sodium (Levothroid) 100 Mcg Tablet 01/24/10 Allergies Allergies: Coded Allergies: Penicillins (Unverified Allergy, Intermediate, RASH , 01/02/19) sertraline (Verified Allergy, Mild, 01/02/19) PMhx/Soc History of Surgery: No (stents) Anesthesia Reaction: No Hx Neurological Disorder: No (CVA) Hx Respiratory Disorders: Yes (ASTHMA) Hx Cardiac Disorders: Yes (HTN, CHF, ANGIOSPLASTY, CAD) Hx Psychiatric Problems: Yes (BIPOLAR) Hx Miscellaneous Medical Probl: Yes (ESRD on HD,lupus) Hx Alcohol Use: Yes Hx Substance Use: No Hx Tobacco Use: No Physical Exam Vitals Vital Signs Date Temp Pulse Resp B/P (MAP) Pulse Ox O2 O2 Flow FiO2 Time Delivery Rate 01/02/19 98.7 80 18 115/59 95 13:40 (77) Physical Exam Constitutional:Well-developed. Well-nourished. Respiratory: Not using accessory muscles of respiration.Lungs were clear to auscultation bilaterally. No rhonchi. No rales. No wheezing. Cardiovascular: Regular rate regular rhythm.No murmurs. No rubs were appreciated.S1, S2 normal. Distal pulses are palpable 2+ bilaterally. Right chest wall permacath is clean dry and intact GI: Abdomen was soft. Nontender. Non Distended. No pulsatile abdominal masses or bruits. No rebound. No guarding. Bowel sounds were present and normal. Skin: No petechia, no purpura. No lesions on the palms or the soles of the feet. No maculopapular rash. Positive thrill and bruit of the left upper extremity fistula NEURO: Patient was alert, awake, orientated x3.No facial droop. Gait observed and normal with no ataxia.Speech had regular rate and rhythm. No focal neurological deficits. Results 24 hrs Current Medications Medications Dose Sig/Geo Start Time Status Last (Trade) Ordered Route PRN Stop Time Admin Dose Reason Admin Lidocaine 20 ml STK-MED 01/02/19 DC (Xylocaine ONCE .ROUTE 15:46 1% (Mdv) 20 01/02/19 15:47 ml) Sodium 500 ml @ ud STK-MED 01/02/19 DC Chloride ONCE .ROUTE 15:46 01/02/19 15:47 Lidocaine/ 20 ml STK-MED 01/02/19 DC Epinephrine ONCE .ROUTE 15:51 (Xylocaine 01/02/19 15:52 1%/ Epi (Mdv) 20 ml) Sodium 500 ml @ ud STK-MED 01/02/19 DC Chloride ONCE .ROUTE 19:30 01/02/19 19:31 Procedures/MDM This patient presented to the emergency department for removal of her permacath which was performed under IR guidance. Patient tolerated the procedure well. She was subsequently discharged home. The patient was discharged home in fair condition. They were instructed to return to the emergency department at any time if there was any worsening of their condition. The patient stated they would follow up with their PCP in the next 24-48 hours to initiate a suitable medication regimen under the care of their PCP as well as to allow their PCP to monitor any drug reactions. The patient was discharged home with prescriptions after they gave informed consent to the new medication. They were also fully informed by myself on the adverse effects and adverse drug interactions in order to provide adequate safeguards to prevent possible adverse reactions to medications. Departure Diagnosis: Primary Impression: Encounter for removal of vascular catheter Condition: Fair Patient Instructions: Dialysis Access PEYTON CERDA MD Jan 03, 2019 08:03
--- NOTE | 2019-01-03 14:43 | RADRPT ---
PROCEDURE: Right internal jugular vein tunneled hemodialysis catheter removal. CLINICAL INDICATION: Right internal jugular vein tunneled dialysis catheter no longer required. TECHNIQUE: INTRAPROCEDURE MEDICATIONS: 1% lidocaine subcutaneous. The procedure, risks, benefits, complications and alternatives were explained to the patient. Consent was obtained. A procedural pause was performed prior to the procedure. The patient's name, date of b irth, and procedure to be performed were verified. The right anterior chest wall was prepped and draped. One percent lidocaine was used as local anesthe gabo at the site of the dialysis catheter. Fluoroscopic guidance was used. A 1 cm incision was made u tilizing a 11 blade scalpel. Utilizing blunt dissection the tunneled catheter was mobilized. The cat heter was then removed. Pressure was applied to the region of the internal jugular vein and the chest wall at the site of the catheter until adequate hemostasis was obtained. A dressing was applied. 0 minutes of fluoroscopy time was used. Several images of the chest were obtained with image intensifi er. Specimens: None. Blood loss: 5 ml. Complications: None. Construction Operations Manager: None. Anesthesia: Local Graft/Implant: None. COMPARISON: None. FINDINGS: Successful removal of tunneled dialysis catheter. Preoperative image demonstrates the tunneled dialys is catheter in position. Postoperative image demonstrates successful removal of the dialysis cathete r. IMPRESSION: 1. Successful removal of right internal jugular vein tunneled dialysis catheter. RPTAT: QQ Physician Dileep Date Time Electronically viewed and signed by Physician Dileep on 01/03/2019 14:43 RD/
== END 2019-01-02 17:09 | disposition home or self-care (01) ==
LOC: E/R 13:36
DX: Z45.2 Encounter for adjustment and management of vascular access device (principal); J45.909 Unspecified asthma, uncomplicated; I13.2 Hypertensive heart and chronic kidney disease with heart failure and with stage 5 chronic kidney disease, or end stage renal disease; I50.9 Heart failure, unspecified; N18.6 End stage renal disease; Z86.73 Personal history of transient ischemic attack (TIA), and cerebral infarction without residual deficits; Z99.2 Dependence on renal dialysis
CPT/HCPCS: 37193; 99283; J7040

== ENCOUNTER 2019-01-09 20:37 | Emergency (ER) | payer MEDICARE, MEDICAID ==
[~2019-01-09] VITALS: Ht 170.2 cm; Wt 92.8 kg
[~2019-01-09 20:37] MED LIST changes: -BENA20TA4; -CEPH500C; -HYDR200T39 PO; -LABE200T25; -LEVO-86; -LEVO50TA64; -TRAM50TA2 PO; -TRIA1CAP44
[2019-01-09 20:47] VITALS: Ht 170.2 cm; Wt 92.8 kg
--- NOTE | 2019-01-09 22:09 | ERD ---
ER Documentation Chief Complaint Chief Complaint dizziness HPI The patient is a 58-year-old female, presenting to the ER because of headache and dizziness that began around 4:30 AM this morning, denies similar symptoms previously, feels as if the room is spinning. She denies fever, chills, facial pain, neck pain, chest pain, dyspnea, abdominal pain, vomiting, dizzy, diarrhea. She smokes half a pack a day, denies drinking, walks with a walker Past medical history: History of heart failure, SLE, dyslipidemia, anxiety, hypertension, hypothyroidism, depression, history of CVA, CAD, bipolar, chronic kidney disease on hemodialysis Sunday and Sunday Past surgical history: Stent PCI, left upper extremity AV fistula ROS All systems reviewed and are negative except as per history of present illness. Medications Home Meds Active Scripts Meclizine Hcl* (Antivert*) 12.5 Mg Tab, 25 MG PO Q6H PRN for DIZZINESS, #20 TAB Prov:NICOLE LI MD 01/10/19 Reported Medications Atorvastatin* (Atorvastatin*) 40 Mg Tablet, 40 MG PO QHS, #30 TAB 09/25/18 Furosemide* (Lasix*) 80 Mg Tablet, 80 MG PO DAILY, TAB 09/25/18 Alprazolam* (Xanax*) 1 Mg Tab, 1 MG PO Q12 PRN for ANXIETY, TAB 09/25/18 Amlodipine Besylate* (Amlodipine Besylate*) 10 Mg Tablet, 10 MG PO DAILY, #30 TAB 09/25/18 Levothyroxine Sodium* (Synthroid*) 200 Mcg Tablet, 260 MCG PO BEFORE BREAKFAST, #30 TAB 09/25/18 Hydralazine Hcl* (Hydralazine Hcl*) 25 Mg Tab, 25 MG PO TID, #120 TAB 09/25/18 Divalproex Sodium* (Depakote*) 500 Mg Tablet.dr, 500 MG PO BID, #90 TAB 09/25/18 Isosorbide Mononitrate (Isosorbide Mononitrate) 20 Mg Tablet, 60 MG PO DAILY, TAB 09/25/18 Escitalopram Oxalate* (Lexapro*) 5 Mg Tablet, 5 MG PO DAILY, #30 TAB 09/25/18 Allergies Allergies: Coded Allergies: Penicillins (Unverified Allergy, Intermediate, RASH , 01/02/19) sertraline (Verified Allergy, Mild, 01/02/19) PMhx/Soc History of Surgery: No (stents) Anesthesia Reaction: No Hx Neurological Disorder: No (CVA) Hx Respiratory Disorders: Yes (ASTHMA) Hx Cardiac Disorders: Yes (HTN, CHF, ANGIOSPLASTY, CAD) Hx Psychiatric Problems: Yes (BIPOLAR) Hx Miscellaneous Medical Probl: Yes (ESRD on HD,lupus) Hx Alcohol Use: Yes Hx Substance Use: No Hx Tobacco Use: No Physical Exam Vitals Vital Signs Date Temp Pulse Resp B/P (MAP) Pulse Ox O2 O2 Flow FiO2 Time Delivery Rate 01/10/19 98.0 79 18 137/72 96 Room Air 00:45 (93) 01/09/19 98.0 63 22 129/65 96 Room Air 22:00 (86) 01/09/19 98.4 79 18 124/67 97 20:47 (86) Physical Exam Const: No acute distress. Head: Atraumatic. Eyes: Normal Conjunctiva. ENT: Normal External Ears, Nose and Mouth. Neck: Full range of motion. No meningismus. Resp: Clear to auscultation bilaterally. Cardio: Regular rate and rhythm. Abd: Soft, non distended, normal bowel sounds, non tender. Skin: No petechiae or rashes. Back: No midline or flank tenderness. Ext: No cyanosis, or edema. Neur: Awake and alert. No focal deficit Psych: Normal Mood and Affect. Result Diagram: 01/09/19222201/09/19 2223 Results 24 hrs Laboratory Tests Test 01/09/19 22:11 01/09/19 22:23 01/09/19 22:26 01/09/19 22:28 Bedside Urine pH 7.0 (LAB) Bedside Urine 3+ Protein (LAB) Bedside Urine Negative Glucose (UA) Bedside Urine Trace Ketones (LAB) Bedside Urine Blood Negative Bedside Urine Negative Nitrite (LAB) Bedside Urine Trace Leukocyte Esterase (L White Blood Count 6.6 10^3/ul Red Blood Count 3.82 10^6/ul Hemoglobin 11.8 g/dl Hematocrit 37.9 % Mean Corpuscular 99.2 fl Volume Mean Corpuscular 30.9 pg Hemoglobin Mean Corpuscular 31.1 g/dl Hemoglobin Concent Red Cell 15.0 % Distribution Width Platelet Count 213 10^3/UL Mean Platelet 9.6 fl Volume Immature 0.500 % Granulocytes % Neutrophils % 57.0 % Lymphocytes % 28.6 % Monocytes % 9.4 % Eosinophils % 3.7 % Basophils % 0.8 % Nucleated Red Blood 0.0 /100WBC Cells % Immature 0.030 10^3/ul Granulocytes # Neutrophils # 3.8 10^3/ul Lymphocytes # 1.9 10^3/ul Monocytes # 0.6 10^3/ul Eosinophils # 0.2 10^3/ul Basophils # 0.1 10^3/ul Nucleated Red Blood 0.0 10^3/ul Cells # Sodium Level 141 mmol/L Potassium Level 3.3 mmol/L Chloride Level 100 mmol/L Carbon Dioxide 29 mmol/L Level Anion Gap 12 Blood Urea Nitrogen 51 mg/dl Creatinine 4.11 mg/dl Est Glomerular 11 mL/min Filtrat Rate mL/min Glucose Level 116 mg/dl Calcium Level 9.6 mg/dl Troponin I < 0.012 ng/ml Valproic Acid 66 ug/ml (Depakene) Level Bedside Glucose 108 mg/dL Procedures/MDM EKG: Read by emergency physician Rate/Rhythm: Normal Sinus Rhythm 79 beats/min QRS, ST, T-waves: No ST elevation, SA, LPFB, NS T abn, prolong QT Impression: Abnormal EKG [place] [address] Radiology Main Line: [phone] DIAGNOSTIC IMAGING REPORT Patient: KEVIN BRADSHAW : 1960 Age: 58 Sex: F MR #: [id number] DOS: 01/09/19 2216 Ordering MD: NICOLE LI MD Location: E/R Room/Bed: PROCEDURE: CT Brain without contrast. CLINICAL INDICATION: Patient experiencing Syncope. TECHNIQUE: A CT of the brain was performed from the skull base through the vertex without IV contrast. Multiplanar reformatted images were made. Images were reviewed on a PACS workstation. The CTDIvol is 38.5 mGy and the DLP is 634 mGycm. DICOM images are available. One or more of the following dose reduction techniques were utilized: 1.) Automated exposure control 2.) Adjustment of the mA +/- kV according to patient's size 3.) Use of iterative reconstruction technique. COMPARISON: 10/22/2007 FINDINGS: Brain: Old small left cerebellar cortical infarct is unchanged. No mass, hemorrhage, or evidence of acute infarct. There is mild parenchymal volume loss. Mild periventricular and subcortical white matter hypodensities are seen, nonspecific, likely related to chronic small vessel ischemic disease. The ventricles are otherwise normal in size and configuration. Intracranial atherosclerotic calcifications are noted. Bones: Trapped fluid seen in the left posterior mastoid air cells, unchanged. No acute bony abnormality identified. Orbits: Unremarkable Soft tissues: Unremarkable Paranasal sinuses: Visualized sinuses are clear. IMPRESSION: No acute intracranial findings. Mild parenchymal volume loss and chronic small vessel ischemic disease. Old small left cerebellar infarct, unchanged. RPTAT:HCLE Physician Tone Date Time Electronically viewed and signed by Physician Tone on 01/10/2019 01:02 cE/ CC: NICOLE LI MD [id number] [place] [address] Radiology Main Line: [phone] DIAGNOSTIC IMAGING REPORT Patient: KEVIN BRADSHAW : 1960 Age: 58 Sex: F MR #: [id number] DOS: 01/09/19 2216 Ordering MD: NICOLE LI MD Location: E/R Room/Bed: PROCEDURE: XR Chest. CLINICAL INDICATION: Syncope TECHNIQUE: PA and Lateral views of the chest were obtained. COMPARISON: None. FINDINGS: Heart is not enlarged. There is calcified plaque aorta. There are enlarged main pulmonary arteries.. The lungs are clear. No signs of pleural fluid or pneumothorax are seen. The osseous structures and soft tissues are unremarkable. IMPRESSION: No evidence for active cardiopulmonary disease. Enlarged pulmonary arteries - rule out pulmonary hypertension. .Russell Ospina MD, MD Date Time Electronically viewed and signed by .Russell Ospina MD, MD on 01/09/2019 23:27 .A/ CC: NICOLE LI MD [id number] MEDICAL MAKING DECISION: The patient is a 58-year-old female, presenting with acute dizziness of unclear etiology, acute hypokalemia. She was treated with Antivert 25 mg p.o. for acute dizziness with good response, is stable for outpatient follow-up The differential diagnoses considered include but are not limited to central causes such as cerebellar infarct, cerebellar hemorrhage, cerebellar tumor, acoustic neuroma, peripheral causes such as benign positional vertigo, labyrinthitis, medication, Meniere's disease. Departure Diagnosis: Primary Impression: Dizziness Additional Impressions: Hypokalemia Anemia Condition: Good Comments She was discharged with Antivert I discussed the findings with the patient. I advised the patient to follow-up with the primary physician in about 1-2 days, sooner if needed and return if any concern. Disclaimer: Inadvertent spelling and grammatical errors are likely due to EHR/dictation software use and do not reflect on the overall quality of patient care. Also, please note that the electronic time recorded on this note does not necessarily reflect the actual time of the patient encounter. NICOLE LI MD Jan 09, 2019 22:09
[2019-01-10] MEDS ORDERED: MECL12.574 PO (01:11)
[2019-01-10 01:20] VITALS: BP 144/81; PULSE 71; RESP 18
== END 2019-01-10 01:40 | disposition home or self-care (01) ==
LOC: E/R 20:37
DX: E87.6 Hypokalemia (principal); J45.909 Unspecified asthma, uncomplicated; I50.9 Heart failure, unspecified; I25.10 Atherosclerotic heart disease of native coronary artery without angina pectoris; I13.2 Hypertensive heart and chronic kidney disease with heart failure and with stage 5 chronic kidney disease, or end stage renal disease; N18.6 End stage renal disease; D64.9 Anemia, unspecified; R40.2142 Coma scale, eyes open, spontaneous, at arrival to emergency department; R40.2362 Coma scale, best motor response, obeys commands, at arrival to emergency department; R40.2252 Coma scale, best verbal response, oriented, at arrival to emergency department; E03.9 Hypothyroidism, unspecified; Z99.2 Dependence on renal dialysis; Z86.73 Personal history of transient ischemic attack (TIA), and cerebral infarction without residual deficits
CPT/HCPCS: 36415; 70450; 71045; 80048; 80164; 81003; 82962; 84484; 85025; 93005

== ENCOUNTER 2019-01-22 16:12 | Emergency (ER) | payer MEDICARE, MEDICAID ==
[~2019-01-22] VITALS: Ht 170.2 cm; Wt 91.2 kg
[~2019-01-22 16:12] MED LIST changes: +HYDR-4011 PO; +MECL12.574 PO
[2019-01-22 16:43] VITALS: Ht 170.2 cm; Wt 91.2 kg
[2019-01-22 19:18] VITALS: BP 127/70; PULSE 79; RESP 16
--- NOTE | 2019-01-22 20:41 | ERD ---
ER Documentation Chief Complaint Chief Complaint pt c/o headache x2 weeks, hx lupus HPI 55yo female with history of ESRD on HD, lupus, fibromyalgia presents for headache x2 weeks. Headache rated 10/10, noted to be diffuse, described as sharp, nonradiating, no alleviating or exacerbating factors. Denies dizziness, denies muscle weakness. Denies fever. Denies chest pain or shortness of breath. Denies abdominal pain, nausea, vomiting. No other modifying factors noted, no other treatments tried at home. Patient has had prior similar headaches in the past. ROS All systems reviewed and are negative except as per history of present illness. Medications Home Meds Active Scripts Hydrocodone/Acetaminophen (Mcgrann 5-325 Tablet) 1 Each Tablet, 1 TAB PO Q6H PRN for PAIN, #7 TAB Prov:NICOLE CORADO DO 01/22/19 Meclizine Hcl* (Antivert*) 12.5 Mg Tab, 25 MG PO Q6H PRN for DIZZINESS, #20 TAB Prov:NICOLE LI MD 01/10/19 Reported Medications Atorvastatin* (Atorvastatin*) 40 Mg Tablet, 40 MG PO QHS, #30 TAB 09/25/18 Furosemide* (Lasix*) 80 Mg Tablet, 80 MG PO DAILY, TAB 09/25/18 Alprazolam* (Xanax*) 1 Mg Tab, 1 MG PO Q12 PRN for ANXIETY, TAB 09/25/18 Amlodipine Besylate* (Amlodipine Besylate*) 10 Mg Tablet, 10 MG PO DAILY, #30 TAB 09/25/18 Levothyroxine Sodium* (Synthroid*) 200 Mcg Tablet, 260 MCG PO BEFORE BREAKFAST, #30 TAB 09/25/18 Hydralazine Hcl* (Hydralazine Hcl*) 25 Mg Tab, 25 MG PO TID, #120 TAB 09/25/18 Divalproex Sodium* (Depakote*) 500 Mg Tablet.dr, 500 MG PO BID, #90 TAB 09/25/18 Isosorbide Mononitrate (Isosorbide Mononitrate) 20 Mg Tablet, 60 MG PO DAILY, TAB 09/25/18 Escitalopram Oxalate* (Lexapro*) 5 Mg Tablet, 5 MG PO DAILY, #30 TAB 09/25/18 Allergies Allergies: Coded Allergies: Penicillins (Unverified Allergy, Intermediate, RASH , 01/02/19) sertraline (Verified Allergy, Mild, 01/02/19) PMhx/Soc History of Surgery: No (stents) Anesthesia Reaction: No Hx Neurological Disorder: Yes (CVA) Hx Respiratory Disorders: Yes (ASTHMA) Hx Cardiac Disorders: Yes (HTN, CHF, ANGIOSPLASTY, CAD) Hx Psychiatric Problems: Yes (BIPOLAR) Hx Miscellaneous Medical Probl: Yes (ESRD on HD,lupus) Hx Alcohol Use: Yes Hx Substance Use: No Hx Tobacco Use: Yes (2 cigarettes daily) Smoking Status: Never smoker FmHx Family History: No coronary disease Physical Exam Vitals Temperature 99.4, pulse 79, respirations 16, blood pressure 127/70, O2 saturation 97% on room air. Physical Exam Const: No acute distress Head: Atraumatic, no temporal area tenderness to palpation Eyes: Normal Conjunctiva, pupils equal, round, reactive to light bilaterally ENT: Normal External Ears, bilateral tympanic membrane intact without erythema or bulging noted, Nose and Mouth examination normal. No tonsillar swelling or exudate noted Neck: Full range of motion. No meningismus, no bruits noted Resp: Clear to auscultation bilaterally Cardio: Regular rate and rhythm, no murmurs, bilateral radial and dorsalis pedis pulses intact Skin: No petechiae or rashes Ext: No cyanosis, or edema, 5 out of 5 muscular bilateral upper and lower extremities Neur: Awake and alert, bilateral upper and lower extremity sensation intact Psych: Normal Mood and Affect Procedures/MDM Medical Decision Making: Differential diagnosis includes but not limited to primary headache, subarachnoid hemorrhage, meningitis, temporal arteritis, glaucoma, hypertension, cerebral ischemia, carotid or vertebral arterial dissection, brain tumor. Patient appeared well on physical examination, nontoxic appearing. No history of fever. There is low suspicion for meningitis. Given no temporal area tenderness to palpation, low suspicion for temporal arteritis. Patient has no vision changes and pupils are reactive bilaterally, low suspicion for glaucoma. There is also no focal neurologic deficits to suggest a brain tumor. Patient has normal sensation and muscle strength, low suspicion for cerebral ischemia. Given headache is similar to prior headaches, patient possibly has a primary headache. Patient given prescription for supportive medication(s). Patient advised to follow up with PCP in 1-2 days. Patient advised to return to ED for new or worsening symptoms. Patient stable on discharge from the ED. The patient has been prescribed Mcgrann during this encounter. The patient has been warned about the use of narcotics. The patient should not drive or operate heavy machinery while taking this medication. The patient was also warned about the addictive properties of narcotic medications. Narcan prescription was NOT provided given the following criteria 1. No more than 5 tablets of Mcgrann 10 mg or 10 tablets of Mcgrann 5 mg were prescribed. 2. Concomitant opiate and benzodiazepine prescriptions were not provided. 3. There is no obvious evidence of prior history of opiate abuse or overdose. Disclaimer: Inadvertent spelling and grammatical errors are likely due to EHR/dictation software use and do not reflect on the overall quality of patient care. Also, please note that the electronic time recorded on this note does not necessarily reflect the actual time of the patient encounter. Departure Diagnosis: Primary Impression: Headache Headache type: unspecified Headache chronicity pattern: unspecified pattern Intractability: not intractable Qualified Codes: R51 - Headache Condition: Fair Patient Instructions: Self-Care for Headaches Referrals: [facility] YOU HAVE RECEIVED A MEDICAL SCREENING EXAM AND THE RESULTS INDICATE THAT YOU DO NOT HAVE A CONDITION THAT REQUIRES URGENT TREATMENT IN THE EMERGENCY DEPARTMENT. FURTHER EVALUATION AND TREATMENT OF YOUR CONDITION CAN WAIT UNTIL YOU ARE SEEN IN YOUR DOCTORS OFFICE WITHIN THE NEXT 1-2 DAYS. IT IS YOUR RESPONSIBILITY TO MAKE AN APPOINTMENT FOR FOLOW-UP CARE. IF YOU HAVE A PRIMARY DOCTOR --you should call your primary doctor and schedule an appointment IF YOU DO NOT HAVE A PRIMARY DOCTOR YOU CAN CALL OUR PHYSICIAN REFERRAL HOTLINE AT IF YOU CAN NOT AFFORD TO SEE A PHYSICIAN YOU CAN CHOSE FROM THE FOLLOWING [facility] [address] [facility] [address] [facility] [facility] [address] [facility] [address] [facility] [address] [facility]. [facility]. [address] Additional Instructions: Call your primary care doctor TOMORROW for an appointment during the next 1-2 days.See the doctor sooner or return here if your condition worsens before your appointment time. NICOLE CORADO DO Jan 22, 2019 20:41
== END 2019-01-22 21:03 | disposition home or self-care (01) ==
LOC: FTE 16:12
DX: R51 Headache (principal)
CPT/HCPCS: 99283